=== PATIENT | male | born 1965 | race Caucasian/White ===

== ENCOUNTER 2018-01-02 22:45 | Observation (INO) ==
--- NOTE | 2018-01-02 23:02 | ED ---
HPI General Chief complaint: Chest Pain Stated complaint: chest pain/evac Time Seen by Provider: 01/02/18 22:55 Source: patient Limitations: no limitations History of Present Illness HPI narrative: The patient is a 52 year old male who presents to the [facility] emergency department with a history of onset of palpitations with a sensation that his heart was racing and approximately 30-45 minutes prior to arrival after he finished eating a meal. He denies having any chest pain or chest pressure associated with it. He reports that he does have a history of high blood pressure, however he has not been on any medications for the last several months. He denies ever having symptoms like this previously. The patient denies ever having any prior history of coronary artery disease, DVT, or PE. He denies having any lower extremity edema, calf pain, or erythema. The patient reports that he does smoke 1-1/2 packs of cigarettes per day. He is unsure of whether he has any history of diabetes or hyperlipidemia as he does not see a primary care physician. The patient reports that he does drink 10 beers daily. He denies any other illicit drug use other than occasionally he will get a pain medication off the street for various aches or pains. On review of systems otherwise, the patient denies having any known fevers, cough, congestion, neck pain, shortness of breath, abdominal pain, vomiting, diarrhea, urinary symptoms, or neurologic symptoms. Related Data Home Medications Medication Instructions Recorded Confirmed No Known Home Medications 01/02/18 01/02/18 Allergies Allergy/AdvReac Type Severity Reaction Status Date / Time No Known Allergies Allergy Uncoded 01/02/15 06:18 Review of Systems ROS: all other systems reviewed are negative PMFSH History History Provided By: Patient Medical History Medical History Hypertension (Acute) Gout (Acute) Surgical History Surgical History H/O knee surgery (Acute) Social History Social History Substance History: Active Abuse Second Hand Smoke Exposure: Yes Smoking Status: Current every day smoker Tobacco Type: Cigarettes Packs Per Day: 1.5 Cigarettes Per Day: 30.0 How Often Do You Have a Drink Containing Alcohol: 4 or more times a week Recent Travel in [facility] within the Last 8 Weeks: No Recent Out of Country Travel within the Last 8 Weeks: No Exam Const General: cooperative, no acute distress and well developed Nutritional Appearance: well nourished Orientation: alert, awake and oriented x3 HENMT Head: normocephalic and atraumatic Nose: no nasal discharge and no epistaxis Mouth: moist mucous membranes Throat: posterior oropharynx normal and uvula midline Eyes Sclera: normal sclerae Pupils: PERRL Neck Neck: no meningeal signs, trachea midline and no JVD Resp Effort & Inspection: no use of accessory muscles Auscultation: clear to auscultation bilaterally Cardio Rate: tachycardic (Sinus tachycardia in the low 100s. No pulse deficits to the extremities on simultaneous auscultation and palpation of his radial artery) Rhythm: regular rhythm Heart Sounds: no gallops, no murmurs and no rubs GI Inspection: non-distended Palpation: soft, no hepatosplenomegaly, no guarding, not rigid and nontender Auscultation: normal bowel sounds Back/Spine/Pelvis Back: no CVA tenderness Skin General: dry skin (warm) Neuro General: alert, awake, oriented x3 and other (Grossly nonfocal.) Speech: speech normal Motor: no movement abnormalities noted Extrem General: normal to inspection (2 +Pulses in all 4 extremities.), no calf tenderness, no clubbing, no cyanosis and no edema Psych Mood: congruent mood Affect: normal affect Judgment: judgment good Course Initial Documented Vital Signs Temperature 98.2 F 01/02/18 22:55 Pulse Rate 108 H 01/02/18 22:55 Respiratory Rate 18 01/02/18 22:55 Blood Pressure 167/98 H 01/02/18 22:55 Pulse Oximetry 97 01/02/18 22:55 Last Documented Vital Signs Temperature 97.9 F 01/03/18 04:00 Pulse Rate 80 01/03/18 04:00 Respiratory Rate 16 01/03/18 04:00 Blood Pressure 164/89 H 01/03/18 04:00 Pulse Oximetry 99 01/03/18 04:00 Medical Decision Making MDM Narrative Medical decision making narrative: During the course of the patient's emergency department visit, the patient's history, examination, and differential diagnosis were reviewed with the patient. The patient was placed on a cardiac monitor technician with oximetry and frequent blood pressure monitoring. The patient had IV access obtained and blood work sent for analysis. Diagnostic evaluation was started regarding the patient's palpitations and lightheaded sensation. The patient was initially provided normal saline of 500 mL bolus. The patient was brought in by ambulance services and was a 4 mg p.o. x1, sublingual nitroglycerin x1. The patient's diagnostic evaluation is remarkable for PT is 10, PTT 28.7, d- dimer is elevated at 0.66, a CTA to rule out PE has been ordered. The patient has a white count of 6.9, hemoglobin 14.8, platelets 332 with a normal differential. Chemistry is remarkable for potassium 3.3 which was supplemented orally, glucose 118, calcium 8.4, AST is 82, cardiac enzymes within normal limits, BNP 7, lipase 123, TSH elevated at 5.41, alcohol level 118, chest x-ray showed no acute cardiopulmonary disease. CTA to rule out pulmonary embolism showed no evidence of pulmonary embolism. The patient will be admitted to the chest pain center for continued evaluation and treatment. The patient's results were discussed with the patient, including the plan of care. I explained that further testing and/ or monitoring is indicated based on the patient's history, examination, and/ or laboratory findings. Therefore, I recommended admission for additional evaluation. The patient expressed understanding and was agreeable with this plan. The patient was admitted to the hospital in stable condition and sent to a bed under the care of the [facility]. Medical Screen Exam Complete: Yes Emergency Medical Condition: Yes Differential Diagnosis Differential Diagnosis: Endocrine disorder causing tachycardia, versus dehydration, versus paroxysmal atrial fibrillation, versus SVT, versus acute coronary syndrome Medical Records Medical records reviewed: Yes I reviewed the patient's medical records. Lab Data Lab results reviewed: Yes I reviewed the patient's lab results. Result diagrams: 01/02/18 23:00 01/02/18 23:00 Lab Results 01/02/18 01/02/18 01/02/18 Range/Units 23:00 23:00 23:00 WBC 6.9 (4.0-11.0) th/mm3 RBC 4.56 (4.50-5.90) mil/mm3 Hgb 14.8 (13.0-17.0) gm/dL Hct 41.0 (39.0-51.0) % MCV 89.9 (80.0-100.0) fL MCH 32.5 (27.0-34.0) pg MCHC 36.2 H (32.0-36.0) % RDW 13.9 (11.6-17.2) % Plt Count 332 (150-450) th/mm3 MPV 6.8 L (7.0-11.0) fL Prelim Diff (Auto) Slide review pending Neut % (Auto) 47.4 (16.0-70.0) % Lymph % (Auto) 42.2 (9.0-44.0) % Webster % (Auto) 5.9 (0.0-8.0) % Eos % (Auto) 3.3 (0.0-4.0) % Baso % (Auto) 1.2 (0.0-2.0) % Neut # (Auto) 3.3 (1.8-7.7) th/mm3 Lymph # (Auto) 2.9 (1.0-4.8) th/mm3 Webster # (Auto) 0.4 (0.0-0.9) th/mm3 Eos # (Auto) 0.2 (0.0-0.4) th/mm3 Baso # (Auto) 0.1 (0.0-0.2) th/mm3 WBC Differential . Diff Scan Auto diff confirmed Differential Comment . Platelet Estimate Normal (Normal) Platelet Morphology Normal (Normal) Stomatocytes 1+ H (None) PT 10.0 (9.8-11.6) sec INR 1.0 Ratio APTT 28.7 (23.4-31.7) sec D-Dimer Quant (PE/DVT) 0.66 H (0.00-0.50) mg/L FEU Sodium 136 (136-145) meq/L Potassium 3.3 L (3.5-5.1) meq/L Chloride 100 (98-107) meq/L Carbon Dioxide 24.4 (21.0-32.0) meq/L Anion Gap 12 (5-15) meq/L BUN 9 (7-18) mg/dL Creatinine 0.85 (0.60-1.30) mg/dL Estimated GFR Greater than 89 (>89) mL/min Random Glucose 118 H (74-106) mg/dL Calcium 8.4 L (8.5-10.1) mg/dL Magnesium 2.0 (1.5-2.5) mg/dL Total Bilirubin 0.3 (0.2-1.0) mg/dL AST 82 H (15-37) U/L ALT 58 (12-78) U/L Alkaline Phosphatase 81 (45-117) U/L Total Creatine Kinase 191 (39-308) U/L CK-MB (CK-2) 2.9 (0.5-3.6) ng/mL Troponin I Less than 0.02 L (0.02-0.05) ng/mL B-Natriuretic Peptide (0-100) pg/mL Total Protein 7.6 (6.4-8.2) g/dL Albumin 4.0 (3.4-5.0) g/dL Lipase 123 (73-393) U/L TSH 5.410 H (0.358-3.740) uIU/mL Serum Alcohol 118 H (0-5) mg/dL 01/02/18 01/03/18 Range/Units 23:00 02:00 WBC (4.0-11.0) th/mm3 RBC (4.50-5.90) mil/mm3 Hgb (13.0-17.0) gm/dL Hct (39.0-51.0) % MCV (80.0-100.0) fL MCH (27.0-34.0) pg MCHC (32.0-36.0) % RDW (11.6-17.2) % Plt Count (150-450) th/mm3 MPV (7.0-11.0) fL Prelim Diff (Auto) Neut % (Auto) (16.0-70.0) % Lymph % (Auto) (9.0-44.0) % Webster % (Auto) (0.0-8.0) % Eos % (Auto) (0.0-4.0) % Baso % (Auto) (0.0-2.0) % Neut # (Auto) (1.8-7.7) th/mm3 Lymph # (Auto) (1.0-4.8) th/mm3 Webster # (Auto) (0.0-0.9) th/mm3 Eos # (Auto) (0.0-0.4) th/mm3 Baso # (Auto) (0.0-0.2) th/mm3 WBC Differential Diff Scan Differential Comment Platelet Estimate (Normal) Platelet Morphology (Normal) Stomatocytes (None) PT (9.8-11.6) sec INR Ratio APTT (23.4-31.7) sec D-Dimer Quant (PE/DVT) (0.00-0.50) mg/L FEU Sodium (136-145) meq/L Potassium (3.5-5.1) meq/L Chloride (98-107) meq/L Carbon Dioxide (21.0-32.0) meq/L Anion Gap (5-15) meq/L BUN (7-18) mg/dL Creatinine (0.60-1.30) mg/dL Estimated GFR (>89) mL/min Random Glucose (74-106) mg/dL Calcium (8.5-10.1) mg/dL Magnesium (1.5-2.5) mg/dL Total Bilirubin (0.2-1.0) mg/dL AST (15-37) U/L ALT (12-78) U/L Alkaline Phosphatase (45-117) U/L Total Creatine Kinase 178 (39-308) U/L CK-MB (CK-2) 2.3 (0.5-3.6) ng/mL Troponin I Less than 0.02 L (0.02-0.05) ng/mL B-Natriuretic Peptide 7 (0-100) pg/mL Total Protein (6.4-8.2) g/dL Albumin (3.4-5.0) g/dL Lipase (73-393) U/L TSH (0.358-3.740) uIU/mL Serum Alcohol (0-5) mg/dL Imaging Data Radiologist's impression: Chest X-Ray 01/02/18 22:56 CONCLUSION: No acute cardiopulmonary disease identified. Chest CTA 01/03/18 01:35 CONCLUSION: No evidence of pulmonary embolus. ECG Data Attestation: I personally reviewed and interpreted this ECG as follows: Interpretation: The patient had an EKG done on arrival. The patient's EKG reveals a sinus tachycardia with a short PA interval heart rate of 111, QRS duration 114 ms, QTC 418 ms. An incomplete right bundle branch block is noted. Nonspecific T wave abnormalities are noted. Discharge Plan Discharge Disposition Patient Disposition: 30 Still Patient Discharge Details Diagnosis: Chest pain, rule out acute myocardial infarction, Palpitations Physicians Team ED Provider: Dasha Lagos Primary Care Provider: Primary Care Marjorie Otero Attending Provider: Jeyson,Sheila A Discharge Interventions Interventions: ED Discharge Assessment Last Done: 01/03/18 03:10 Status ED Status: Left Department Discharge Information Discharge Date/Time: 01/03/18 03:34
[2018-01-02 23:20] LABS: Baso # (Auto) 0.1 th/mm3 (0.0-0.2); Baso % (Auto) 1.2 % (0.0-2.0); Eos # (Auto) 0.2 th/mm3 (0.0-0.4); Eos % (Auto) 3.3 % (0.0-4.0); Hemoglobin 14.8 gm/dL (13.0-17.0); Lymph # (Auto) 2.9 th/mm3 (1.0-4.8); Lymph % (Auto) 42.2 % (9.0-44.0); Mean Corpuscular Hemoglobin 32.5 pg (27.0-34.0); Mean Corpuscular Volume 89.9 fL (80.0-100.0); Mean Platelet Volume 6.8 fL (7.0-11.0); Mono # (Auto) 0.4 th/mm3 (0.0-0.9); Mono % (Auto) 5.9 % (0.0-8.0); Neut # (Auto) 3.3 th/mm3 (1.8-7.7); Neut % (Auto) 47.4 % (16.0-70.0); Platelet Count 332 th/mm3 (150-450); Red Blood Count 4.56 mil/mm3 (4.50-5.90); Red Cell Distribution Width 13.9 % (11.6-17.2); White Blood Count 6.9 th/mm3 (4.0-11.0)
[2018-01-02 23:21] LABS: Mean Corpuscular HGB Conc 36.2 % (32.0-36.0)
[2018-01-02 23:33] LABS: Anion Gap 12 meq/L (5-15); Aspartate Aminotransferase 82 U/L (15-37); Blood Urea Nitrogen 9 mg/dL (7-18); Calcium 8.4 mg/dL (8.5-10.1); Carbon Dioxide 24.4 meq/L (21.0-32.0); Chloride 100 meq/L (98-107); Glomerular Filtration Rate Greater Than 89 mL/min (>89); Glucose,Random 118 mg/dL (74-106); Lipase 123 U/L (73-393); Potassium 3.3 meq/L (3.5-5.1); Sodium 136 meq/L (136-145)
--- NOTE | 2018-01-02 23:33 | XR ---
EXAM DATE: 01/02/2018 11:10 PM EST AGE/SEX: 52 years / Male INDICATIONS: Chest pain. CLINICAL DATA: This is the patient's initial encounter. Patient reports that signs and symptoms have been present for 1 day and indicates a pain score of 0/10. MEDICAL/SURGICAL HISTORY: None. None. COMPARISON: No prior exams available for comparison. FINDINGS: Single AP view of the chest. The lungs are clear. Cardiomediastinal silhouette within nor mal limits. No evidence of pleural effusion or pneumothorax. CONCLUSION: No acute cardiopulmonary disease identified. Electronically signed by: Derek Zuniga MD 01/02/2018 11:32 PM EST
[2018-01-02 23:34] LABS: Alanine Aminotransferase 58 U/L (12-78)
[2018-01-02 23:36] LABS: Activated Partial Thrombo Time 28.7 sec (23.4-31.7)
[2018-01-02 23:42] LABS: Alkaline Phosphatase 81 U/L (45-117); Creatine Kinase 191 U/L (39-308); Total Protein 7.6 g/dL (6.4-8.2)
[2018-01-02 23:43] LABS: D-Dimer 0.66 mg/L FEU (0.00-0.50)
[2018-01-02 23:52] LABS: Alcohol 118 mg/dL (0-5)
[2018-01-03 00:05] LABS: Creatine Kinase MB 2.9 ng/mL (0.5-3.6)
[2018-01-03 00:27] LABS: Platelet Estimate Normal (Normal); Platelet Morphology Normal (Normal)
[2018-01-03 00:28] LABS: Stomatocytes 1+
[2018-01-03 02:24] LABS: Creatine Kinase 178 U/L (39-308)
[2018-01-03 02:36] LABS: Creatine Kinase MB 2.3 ng/mL (0.5-3.6)
[2018-01-03] MEDS ORDERED: Potassium Chloride 25 MEQ Effervescent Tablet PO ONE (02:51)
--- NOTE | 2018-01-03 02:59 | CT ---
EXAM DATE: 01/03/2018 2:43 AM EST AGE/SEX: 52 years / Male INDICATIONS: Tachycardia, elevated d dimer. CLINICAL DATA: This is the patient's initial encounter. Patient reports that signs and symptoms have been present for 1 day and indicates a pain score of 0/10. MEDICAL/SURGICAL HISTORY: Hypertension. Gout None. RADIATION DOSE: 9.59 CTDI (mGy) COMPARISON: No prior exams available for comparison. TECHNIQUE: Volumetric scanning was performed using a multi-row detector CT scanner during bolus infu gely of 73ml ml Omnipaque 350 (iohexol) nonionic water-soluble contrast as a single exam dose. The d valeria was post processed with a variety of visualization algorithms including full volume maximum inten sity projection and sliding thin slab reformation. Using automated exposure control and adjustment o f the mA and/or kV according to patient size, radiation dose was kept as low as reasonably achievable to obtain optimal diagnostic quality images. DICOM format image data is available electronically fo r review and comparison. FINDINGS: Pulmonary Arteries: No filling defects in the pulmonary arteries to suggest pulmonary was. Lung: Mild centrilobular emphysema. Lungs otherwise clear. Effusion: None. Mediastinum: Coronary artery calcification. Aortic diameter within normal limits. Other: The axilla is unremarkable. CONCLUSION: No evidence of pulmonary embolus. Electronically signed by: Derek Zuniga MD 01/03/2018 2:58 AM EST
[2018-01-03] MEDS: Sod Chloride 0.9% Inj 1,000 ML IV.CONT SCH ×2 (04:00→14:29)
--- NOTE | 2018-01-03 07:56 | P.HPCA ---
History of Present Illness Primary Care Physician: No Primary Care Physician Chief Complaint: Palpations, dizziness History of Present Illness: 52 year old male with history of hypertension not currently on medications, current smoker, who drinks 10-12 beers daily presented to emergency room for further evaluation of palpitations. Onset last evening. Characterize heart "racing." Associated symptoms included dizziness, states "I thought I was going to pass out." Denied any chest pain or pressure. No nausea, vomiting, shortness of breath, or diaphoresis. No precipitating or relieving factors. Duration approximately 30 minutes. Second episode occurred last evening while watching TV around 1 a.m., reports heart began racing again and felt dizzy. Duration "a few minutes." monitoring and evaluation advisor revealed 30 seconds run VTACH, Dr. Benítez was notified in stock mixer. No recent illness, fever, or injury. Denies similar sensation in the past. Does not follow with a primary care provider. Past cardiac testing None Social history Endorses history of hypertension, currently not on medication. Does not follow with a PCP, cholesterol levels unknown. No known diabetes. Current 1.5 pack day smoker. Endorses drinking 10-12 beers daily. No recreational drug use. Endorses an active lifestyle. 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 Family history Noncontributory for early onset cardiovascular disease. - Diagnosis (1) Palpitations (2) Tobacco use (3) Alcohol abuse (4) Hypokalemia (5) Hypertension Review of Systems All other systems reviewed negative except as stated in [facility] - History History Provided By: Patient - Medical History Medical History: Medical History (Last Reviewed 01/03/18 @ 08:59 by SHEYLA Barajas) Hypertension Gout - Surgical History Surgical History: Surgical History (Last Reviewed 01/03/18 @ 08:59 by SHEYLA Barajas) H/O knee surgery - Tobacco History Second Hand Smoke Exposure: Yes Tobacco Use In Past 30 Days: Yes Smoking Status: Current every day smoker Tobacco Type: Cigarettes Packs Per Day: 1.5 Cigarettes Per Day: 30.0 - Alcohol History How Often Do You Have a Drink Containing Alcohol: 4 or more times a week (10-12 beers daily) - Substance Use History Substance History: Active Abuse - Travel History Recent Travel in the [facility] Within the Last 8 Weeks: No Recent Travel Out of the Country Within the Last 8 Weeks: No - Immunization History Tetanus Immunization: Unsure Medications and Allergies Active Medications: Active Medications Sodium Chloride (Ns Inj) 1,000 mls @ 100 mls/hr IV.CONT .Q10H JULIA Last Admin: 01/03/18 04:00 Dose: 100 mls/hr Sodium Chloride (Ns Flush) 2 ml IV.FLUSH UNSCH PRN PRN Reason: FLUSH AFTER USING IV ACCESS Sodium Chloride (Ns Flush) 2 ml IV.FLUSH BID JULIA Sodium Chloride (Ns Flush) 2 ml IV.FLUSH PRN PRN PRN Reason: FLUSH AFTER USING IV ACCESS Allergies Allergy/AdvReac Type Severity Reaction Status Date / Time No Known Allergies Allergy Uncoded 01/02/15 06:18 Home Medications Medication Instructions Recorded Confirmed Type No Known Home Medications 01/02/18 01/02/18 History Exam Vital signs: Vital Signs 01/02/18 22:55 01/02/18 22:59 01/03/18 01:47 Temperature 98.2 F Pulse Rate 108 H 88 Respiratory Rate 18 18 Blood Pressure 167/98 H 168/80 H Pulse Oximetry 97 98 98 01/03/18 02:44 01/03/18 04:00 01/03/18 07:19 Temperature 97.9 F Pulse Rate 89 80 Respiratory Rate 16 16 Blood Pressure 162/85 H 164/89 H Pulse Oximetry 97 99 94 L Intake & Output 01/02/18 01/03/18 01/03/18 18:59 06:59 18:59 Output Total 700 / 700 Balance -700 / -700 Weight 77.111 kg Output: Urine 700 / 700 Other: # Voids 1 1 Weight On Admission 77.111 kg Narrative: GENERAL: Alert WN, WD, NAD, pleasant, male HEAD: NC, AT EYES: Sclera clear, conjunctiva without injection CV: RRR, without murmur, rub, gallop, no JVD, S1-S2. RESP: Scattered rhonchi, not cleared with coughing. no crackles or wheeze. symmetrical chest rise, nonlabored, able to speak in full sentences ABD: Soft, NT, ND, no masses, positive bowel tones EXT: Pulses +2x4, no dependent edema MS: Normal tone x4 extremities, nontender, no obvious deformities, full range of motion NEURO: CN II through CN XII grossly intact, motor strength 5/5 PSYCH: A+O x3, pleasant affect, appropriate speech, mood, insight and judgment SKIN: Normal turgor, normal texture, no lesions, no rashes, multiple tattoos Results 01/02/18 23:00 01/03/18 06:20 Cardiac Enzymes 01/02/18 01/02/18 01/03/18 Range/Units 23:00 23:00 02:00 AST 82 H (15-37) U/L CK-MB (CK-2) 2.9 2.3 (0.5-3.6) ng/mL Troponin I Less than 0.02 L Less than 0.02 L (0.02-0.05) ng/mL B-Natriuretic Peptide 7 (0-100) pg/mL 01/03/18 Range/Units 06:20 AST (15-37) U/L CK-MB (CK-2) (0.5-3.6) ng/mL Troponin I Cancelled (0.02-0.05) ng/mL B-Natriuretic Peptide (0-100) pg/mL Coagulation 01/02/18 01/02/18 Range/Units 23:00 23:00 PT 10.0 (9.8-11.6) sec APTT 28.7 (23.4-31.7) sec B-Natriuretic Peptide 7 (0-100) pg/mL CBC 01/02/18 Range/Units 23:00 WBC 6.9 (4.0-11.0) th/mm3 RBC 4.56 (4.50-5.90) mil/mm3 Hgb 14.8 (13.0-17.0) gm/dL Hct 41.0 (39.0-51.0) % Plt Count 332 (150-450) th/mm3 Neut # (Auto) 3.3 (1.8-7.7) th/mm3 Lymph # (Auto) 2.9 (1.0-4.8) th/mm3 Saunders # (Auto) 0.4 (0.0-0.9) th/mm3 Eos # (Auto) 0.2 (0.0-0.4) th/mm3 Baso # (Auto) 0.1 (0.0-0.2) th/mm3 Comprehensive Metabolic Panel 01/02/18 Range/Units 23:00 Sodium 136 (136-145) meq/L Potassium 3.3 L (3.5-5.1) meq/L Chloride 100 (98-107) meq/L Carbon Dioxide 24.4 (21.0-32.0) meq/L BUN 9 (7-18) mg/dL Creatinine 0.85 (0.60-1.30) mg/dL Calcium 8.4 L (8.5-10.1) mg/dL AST 82 H (15-37) U/L ALT 58 (12-78) U/L Alkaline Phosphatase 81 (45-117) U/L Total Protein 7.6 (6.4-8.2) g/dL Albumin 4.0 (3.4-5.0) g/dL Intake and Output 01/02/18 01/03/18 01/03/18 22:59 06:59 14:59 Output Total 700 / 700 Balance -700 / -700 Output: Urine 700 / 700 Other: # Voids 1 1 Weight 83 kg 77.111 kg Weight On Admission 77.111 kg - Imaging and Cardiology Imaging: Impressions Chest X-Ray 01/02/18 22:56 CONCLUSION: No acute cardiopulmonary disease identified. Chest CTA 01/03/18 01:35 CONCLUSION: No evidence of pulmonary embolus. EKG interpretations - EKG EKG results cardiology: sinus rhythm (Normal sinus rhythm, normal axis, nonspecific T wave changes, incomplete right bundle branch block) Caprini VTE Risk Assessment Caprini VTE Risk Assessment: No/Low Risk (score <= 1) Caprini Risk Assessment Model: Point Value = 1 Point Value = 2 Point Value = 3 Point Value = 5 Age 41-60 Minor surgery BMI > 25 kg/m2 Swollen legs Varicose veins or History of unexplained or recurrent spontaneous Oral contraceptives or hormone replacement Sepsis (< 1 month) Serious lung disease, including pneumonia (< 1 month) Abnormal pulmonary function Acute myocardial infarction Congestive heart failure (< 1 month) History of inflammatory bowel disease Medical patient at bed rest Age 61-74 Arthroscopic surgery Major open surgery (> 45 min) Laparoscopic surgery (> 45 min) Malignancy Confined to bed (> 72 hours) Immobilizing plaster cast Central venous access Age >= 75 History of VTE Family history of VTE Factor V Leiden Prothrombin [id number] Lupus anticoagulant Anticardiolipin antibodies Elevated serum homocysteine Heparin-induced thrombocytopenia Other congenital or acquired thrombophilia Stroke (< 1 month) Elective arthroplasty Hip, pelvis, or leg fracture Acute spinal cord injury (< 1 month) Prophylaxis Regimen: Total Risk Factor Score Risk Level Prophylaxis Regimen 0-1 Low Early ambulation 2 Moderate Order ONE of the following: *Sequential Compression Device (SCD) *Heparin 5000 units SQ BID 3-4 Higher Order ONE of the following medications: *Heparin 5000 units SQ TID *Enoxaparin/Lovenox 40 mg SQ daily (WT < 150 kg, CrCl > 30 mL/min) *Enoxaparin/Lovenox 30 mg SQ daily (WT < 150 kg, CrCl > 10-29 mL/min) *Enoxaparin/Lovenox 30 mg SQ BID (WT < 150 kg, CrCl > 30 mL/min) AND/OR *Sequential Compression Device (SCD) 5 or more Highest Order ONE of the following medications: *Heparin 5000 units SQ TID (Preferred with Epidurals) *Enoxaparin/Lovenox 40 mg SQ daily (WT < 150 kg, CrCl > 30 mL/min) *Enoxaparin/Lovenox 30 mg SQ daily (WT < 150 kg, CrCl > 10-29 mL/min) *Enoxaparin/Lovenox 30 mg SQ BID (WT < 150 kg, CrCl > 30 mL/min) AND *Sequential Compression Device (SCD) Assessment and Plan - Assessment (1) Palpitations Code(s): R00.2 - Palpitations Status: Acute Plan: Admitted chest pain center. ACS ruled out with 3-4 EKGs and cardiac enzymes. Seen and evaluated by Dr. Sheila Benítez. Telemetry reviewed, 30 second VTACH documented. Patient reports being awake during event. Dr. Benítez discussed in length recommendation of cardiac catheterization. Time for questions provided. Patient apprehensive regarding cardiac catheterization. Dr Benítez informed him of risk of due to type of arrhythmia he has. Verbalized understanding and request time to think about consenting to cardiac catheterization. Aspirin 325 mg po daily, Coreg 6.25 mg BID. Plans to call supervisor fabrication developmental writing instructor if patient becomes agreeable for possible cardiac catheterization. [id number] agrees to proceed with cardiac catheterization. Call placed to Dr. Mckenna's office to discuss with supervisor fabrication developmental writing instructor. Discussed with RN. (2) Tobacco use Code(s): Z72.0 - Tobacco use Status: Chronic Plan: Strongly encouraged and stressed the importance of tobacco cessation. Instructed to quit smoking. Tobacco Free [place] Program information will be provided in discharge. (3) Alcohol abuse Code(s): F10.10 - Alcohol abuse, uncomplicated Status: Chronic Plan: Strongly encouraged and stressed the importance of stopping alcohol consumption. Made aware of potentially toxic adverse effects from high alcohol intake. (4) Hypokalemia Code(s): E87.6 - Hypokalemia Status: Acute Plan: Replacement given in ER. Repeat cmp pending. (5) Hypertension Code(s): I10 - Essential (primary) hypertension Status: Chronic Plan: Continue to monitor. Coreg 6.25 mg. Encouraged establishing with a primary care provider upon discharge. Education provided on importance of tight blood pressure control. H&P: Quality - VTE Deep Vein Thrombosis/Pulmonary Embolism Present on Admission: No (5) Hypertension Qualifiers: Hypertension type: unspecified Qualified Code(s): I10 - Essential (primary) hypertension
[2018-01-03 08:10] LABS: Alanine Aminotransferase 58 U/L (12-78); Albumin 3.6 g/dL (3.4-5.0); Anion Gap 9 meq/L (5-15); Aspartate Aminotransferase 88 U/L (15-37); Blood Urea Nitrogen 9 mg/dL (7-18); Calcium 8.1 mg/dL (8.5-10.1); Carbon Dioxide 24.8 meq/L (21.0-32.0); Chloride 105 meq/L (98-107); Glomerular Filtration Rate Greater Than 89 mL/min (>89); Glucose,Random 105 mg/dL (74-106); Phosphorus 3.5 mg/dL (2.5-4.9); Potassium 3.8 meq/L (3.5-5.1); Sodium 139 meq/L (136-145)
[2018-01-03 08:14] LABS: Alkaline Phosphatase 85 U/L (45-117); Creatine Kinase 138 U/L (39-308); Total Protein 6.9 g/dL (6.4-8.2)
[2018-01-03] MEDS: Aspirin 325 MG Tablet PO SCH (08:34)
[2018-01-03] MEDS ORDERED: Carvedilol 6.25 MG Tablet PO SCH (09:00)
[2018-01-03] MEDS ORDERED: Iohexol 350 MG/ML 100 ML Vial (for Cath Lab) IVCONTRAST ONE (14:19)
[2018-01-03] MEDS ORDERED: fentaNYL Citrate Inj 100 MCG/2 ML Ampul ONE (15:19)
[2018-01-03] MEDS ORDERED: Heparin/NS PF Inj 1,000 ML ONE (15:19)
[2018-01-03] MEDS ORDERED: Lidocaine PF 1% Inj 30 ML Vial ONE (15:33)
[2018-01-03] MEDS ORDERED: Tirofiban Inj 12,500 MCG/250 ML PLAST..BAG ONE (16:15)
[2018-01-03] MEDS ORDERED: Misc Info for Pharmacy OTHER STA (16:29)
[2018-01-03] MEDS ORDERED: TIROFIBAN BOLUS IV.SIG ONE (16:29)
--- NOTE | 2018-01-03 16:29 | CATHPROC ---
OnShift HIS Report Study Information Study Number Admission Scheduled Start Study Start [id number] Jan 03 2018 1:37AM 01/03/2018 Jan 03 2018 3:20PM [place] [facility] Cardiac Catheterization Admit Source Facility Department Emergency department [facility] - Lead Mechanical Engineer Physician and Clinical Staff Initial Kemal De Jesus Tail Board Worker Anum De Souza,MARLENE Recorder Scarlett Edwards,RT(R) (BS) Scrub Vik Adams,RT(R) Procedures Performed Procedure Location (Site) Vessel Name Coronary Angiograms LCA Left Coronary Coronary Angiograms RCA Right Coronary L Heart Cath LV Gram-hand inj. LV LV Ventricle PTCA ADD ON'S Stent OM1 Prox CIRC Wire insertion Fem Art (right) Femoral Art Equipment Time School Manager Description Size Mfg Part Number Used/Scraped TRANSDUCER, TRNOW! InnovationsAVE [id number] 15:22 [employer] * Used W/STOCKCOCK *[id number] 16:06 [place] WIRE, CHOICE PT 182CM 182CM Used *[id number] [id number] *[id number] 538-421 *[id number] *[id number] [phone] *[id number] 15:22 [employer] BLANKET,WARM AIR CCL * Used *[id number] 15:22 [employer] PACK, CCL CUSTOM * Used *[id number] 15:22 [employer] PACER PEN, SKIN DUAL W/ RULER * Used *[id number] 16:08 [employer] STENT, 3.0 9 INTEGRITY 3.0 9 Used *[id number] 16:06 [employer] MEDICAL 30 JONI INDEFLATOR Used *[id number] 16:06 [employer] MEDICAL SHEATH, FR6.5 PRELUDE 11CM FR 6.5 038ACT Used *[id number] 15:22 [employer] MEDICAL WIRE, 3MMJ .035 180CM 180CM Used *[id number] 15:22 NAMIC MANIFOLD, 4 PORT * Used *[id number] 15:22 [employer] OMNIPAQUE, 350 MG, 150ML 150ML [id number] Used [id number] 15:22 [employer]UM[employer] MEDICAL SHEATH, FR4 TERUMO (10CM) FR 4 Used *[id number] 15:38 [employer] MEDICAL SHEATH, FR4 TERUMO (10CM) FR 4 Used *[id number] Equipment Model, Serial, Lot Number and Expiration Data Description Model Number Serial Number Lot Number Expiration Date STENT, 3.0 9 INTEGRITY [id number] 07-13-2019 WIRE, CHOICE PT 182CM [id number] 08-23-2019 History: Current Medications Medication Dosage/Unit Route Frequency Last Date/Time Taken ASA History: Allergies Allergy Reaction No Known Allergies History: Risk Factors Family History of Hypertension Dyslipidemia Previous ND Previous Heart Failure Premature CAD No No No No No Prior Valve Prior PCI Prior CABG Surgery No No No Cerebrovascular Peripheral Artery Chronic Lung On Dialysis Diabetes Disease Disease Disease No No No No No History: Other Current Smoker Method Packs a Day Years Used Pack Years Yes Cigarettes 2 30 60 Labs Hgb (g/dl) Hct (%) WBC (l/cumm) Platelets (thousands) 11.60-17.00 35.00-51.00 4.00-11.00 150.00-450.00 14.8 41 6.9 332 Glucose (mg/dl) BUN (mg/dl) Creatinine (mg/dl) BUN:Creatinine (1:x) 74.00-106.00 7.00-18.00 0.50-1.30 10.00-20.00 105 9 0.7 12.9 Na (meq/l) K (meq/l) 136.00-145.00 3.50-5.10 139 3.8 INR (PTT:PT) 0.90-1.10 1 Troponin I (ng/ml) CPK (u/l) CPK-MB (ng/ML) 0.02-0.05 26.00-308.00 0.50-3.60 0.02 178 2.3 Medication Medication Total Dose (Bolus/Oral) Medication Total Dosage/Unit 1% XYLOCAINE 20 mL AGGRASTAT BOLUS 38.6 mL FENTANYL 50 mcg HEPARIN 5400 units PLAVIX 600 mg VERSED 2 mg Medications (Bolus/Oral) Medication Time Given Dosage/Unit Administered By Reason VERSED 01/03/2018 3:56:01 PM 1 mg Anum De Souza 1 mg VERSED given in lab by Anum De Souza, RN via Peripheral IV. 1% XYLOCAINE 01/03/2018 3:56:13 PM 20 mL Kemal Mckenna 20 mL 1% XYLOCAINE given in lab by Kemal Mckenna in Right Groin via Subcutaneous. FENTANYL 01/03/2018 3:57:05 PM 25 mcg Anum De Souza 25 mcg FENTANYL given in lab by Anum De Souza RN via Peripheral IV. HEPARIN 01/03/2018 4:03:20 PM 5400 units Anum De Souza 5400 units HEPARIN given in lab by Anum De Souza RN via Peripheral IV. VERSED 01/03/2018 4:04:29 PM 1 mg Anum De Souza 1 mg VERSED given in lab by Anum De Souza RN via Peripheral IV. FENTANYL 01/03/2018 4:06:32 PM 25 mcg Anum De Souza 25 mcg FENTANYL given in lab by Anum De Souza RN via Peripheral IV. PLAVIX 01/03/2018 4:19:17 PM 600 mg Anum De Souza 600 mg PLAVIX given in lab by Anum De Souza RN via Oral. AGGRASTAT BOLUS 01/03/2018 4:20:34 PM 38.6 mL Anum De Souza 38.6 mL AGGRASTAT BOLUS given in lab by Anum De Souza RN via Peripheral IV. Medication (Drip) Medication Time Given Dosage/Unit Concentration/Unit Diluent (ml) Solution AGGRASTAT DRIP 01/03/2018 4:22:12 PM 0.15 mcg/kg/min 12.5 mg 250 NaCl .9 0.15 mcg/kg/min AGGRASTAT DRIP given in lab by Anum De Souza RN via Peripheral IV. Pump/Drip Flow = 13.9 ml/hr using NaCl .9 with a concentration of 12.5 mg in 250 ml. IV Solutions 01/03/2018 3:27:55 PM 0 mL (IV) 1000 NaCl .9 Patient arrived on IV Solutions via Peripheral IV. Pump/Drip Flow = 30 ml/hr using NaCl .9. Initial Case Assessment Cardiovascular HR Rhythm NIBP Chest Pain 78 reg 183/117 0 Edema Present Skin color Skin None Normal Warm Dry Circulatory - Right Pulses Dorsalis Pedis Femoral 2 3 Scale (0,1,2,3,4,d) Circulatory - Left Pulses Dorsalis Pedis Femoral 2 3 Scale (0,1,2,3,4,d) Circulatory - Lower Extremities Color Lower Right Color Lower Left Normal Normal Neurological State Oriented to time-place- Alert Moves all extremities person Respiration - General Respiration Rate SpO2 (%) (B/min) 12 98 Chronological Log Time Study Chronological Log 15:24:54 Patient arrived via Bed. 15:24:58 Patient Name, D.O.B, / Armband Verified By R.N. 15:24:59 Consent signed by the physician and the patient and verified by the Lead Mechanical Engineer staff. 15:25:01 Pre-op and post- op instructions given; patient acknowledges understanding of instructions. 15:27:44 Presedation assessment performed by Lead Mechanical Engineer RN. 15:27:48 Patient has been NPO for More than 6Hrs. 15:27:48 Skin Breakdown- none noted or reported 15::50 Patient Warmer Placed on the Table. 15::51 La Prominences Protected 15::54 A # 20 IV was noted in the Antecubital (left). Grade = 0 15:27:55 Patient arrived on IV Solutions via Peripheral IV. Pump/Drip Flow = 30 ml/hr using NaCl .9. 15:27:56 History and physical on the chart or being dictated. Assessment: Initial Case, HR=78 BPM, Rhythm=reg, HWGJ=525/117 mmhg, Chest Pain=0, Edema=None, Color=Normal, Skin = Warm, Dry Right Pulses: Eze Ped=2, Femoral=3 Left Pulses: Eze Ped=2, Femoral=3 15:27:57 Lower Right Extremities: Color=Normal Lower Left Extremities: Color=Normal Neurological: State=Alert, Ox3, DUVAL Respiration: Resp=12 B/min, SpO2=98 % Vitals capture started with the following parameters, Patient=Adult, Interval=5 min, Initial Pr nurfez=058 mmHg, 15:28:08 Deflation Rate=5 mmHg, Cuff placed on Left Arm 15:29:29 HR=77 bpm, LXAW=099/117 mmhg, SpO2=97.0 %, Resp=5 B/min, Pain=0, Cesar=10, Johnston=2 15:32:08 Reference ECG taken 15:33:55 HR=78 bpm, UERJ=642/119 mmhg, SpO2=99.0 %, Resp=11 B/min, Pain=0, Cesar=10, Johnston=2 15:34:19 Bilateral groins prepped with 2% chlorhexidine, and draped after a 3 minute waiting time. 15:39:00 HR=76 bpm, WTED=051/157 mmhg, SpO2=97.0 %, Resp=13 B/min, Pain=0, Cesar=10, Johnston=2 15:39:10 MD paged 15:39:29 MD responded 15:43:35 MD arrived. 15:43:55 HR=74 bpm, KNNK=121/111 mmhg, SpO2=96.0 %, Resp=9 B/min, Pain=0, Cesar=10, Johnston=2 15:48:27 Pressure channel 1 zeroed. 15:48:58 HR=72 bpm, DAUF=237/108 mmhg, SpO2=96.0 %, Resp=16 B/min, Pain=0, Cesar=10, Johnston=2 15:53:59 HR=71 bpm, BZJC=421/110 mmhg, SpO2=96.0 %, Resp=15 B/min, Pain=0, Cesar=10, Johnston=2 15:56:01 1 mg VERSED given in lab by Anum De Souza, MARLENE via Peripheral IV. Time Out. Correct patient, correct procedure, correct physician, labs, allergies, and equipment verified with slab stripper 15:56:06 team present. Fire risk assesment completed (see hard stop sheet for coding). Time Out Conc urred by MD and individual staff in procedure. 15:56:10 Case Start 15:56:13 20 mL 1% XYLOCAINE given in lab by Kemal Mckenna in Right Groin via Subcutaneous. 15:57:05 25 mcg FENTANYL given in lab by Anum De Souza, RN via Peripheral IV. 15:57:25 Access site was Right Femoral Artery. 15:57:32 A SHEATH, FR4 TERUMO (10CM) FR 4 was advanced into the Fem Art (right) using the Percutaneo us technique. A JR 4.0 INFINITI CATHETER FR 4 was advanced over a wire. OMNIPAQUE, 350 MG, 150ML 150ML was us ed for 15:58:11 injections. 15:59:00 HR=96 bpm, KZCL=963/96 mmhg, SpO2=94.0 %, Resp=13 B/min, Pain=0, Cesar=10, Johnston=2 Recorded Pressure: LV, HR=76, Condition=Condition 1 15:59:38 (Left Ventricle) LV 167/3/8 15:59:56 The LV was manually injected with 8 cc's and visualized. OMNIPAQUE, 350 MG, 150ML 150ML use d. Recorded Pressure: LV, Ao, HR=85, Condition=Condition 1 16:00:01 (Left Ventricle) LV 163/-1/4, (Aorta) Ao 167/91/123 16:00:45 The RCA was injected and visualized at various angles. OMNIPAQUE, 350 MG, 150ML 150ML used . Recorded Pressure: Ao, HR=84, Condition=Condition 1 16:00:59 (Aorta) Ao 172/95/128 16:01:37 Catheter was removed A JL 4.0 INFINITI CATHETER FR 4 was advanced over a wire. OMNIPAQUE, 350 MG, 150ML 150ML was us ed for 16:01:45 injections. 16:03:10 The LCA was injected and visualized at various angles. OMNIPAQUE, 350 MG, 150ML 150ML used . 16:03:20 5400 units HEPARIN given in lab by Anum De Souza RN via Peripheral IV. 16:03:55 HR=79 bpm, OOLM=257/100 mmhg, SpO2=95.0 %, Resp=16 B/min, Pain=0, Cesar=10, Johnston=2 16:04:29 1 mg VERSED given in lab by Anum De Souza, MARLENE via Peripheral IV. A SHEATH, FR6.5 PRELUDE 11CM FR 6.5 was exchanged in the Fem Art (right). This was necessary in order to 16:05:35 accomodate a larger catheter. 16:05:56 OMNIPAQUE, 350 MG, 150ML 150ML and 30 JONI INDEFLATOR added. 16:06:32 25 mcg FENTANYL given in lab by Anum De Souza, MARLENE via Peripheral IV. A XB 4.0 GUIDE CATHETER FR 6 was advanced over a wire. OMNIPAQUE, 350 MG, 150ML 150ML was used for 16:07:42 injections. 16:08:43 A WIRE, CHOICE PT 182CM 182CM was inserted via Fem Art (right). 16:08:56 HR=83 bpm, FNRI=036/101 mmhg, SpO2=95.0 %, Resp=15 B/min, Pain=0, Cesar=10, Johnston=2 An STENT, 3.0 9 INTEGRITY 3.0 9 Bare Metal Stent was inserted through a XB 4.0 GUIDE CATHETER F R 6 over a 16:12:25 WIRE, CHOICE PT 182CM 182CM. A STENT, 3.0 9 INTEGRITY 3.0 9 was deployed using a 30 JONI INDEFLATOR at 10 atmospheres for 16 seconds in the 16:13:26 OM1 Prox. 16:13:53 HR=79 bpm, WIQZ=244/96 mmhg, SpO2=95.0 %, Resp=13 B/min, Pain=0, Cesar=10, Johnston=2 16:14:26 Delivery device removed 16:14:32 Wire removed 16:14:39 Catheter was removed 16:15:06 Case End (Physician broke scrub) 16:16:27 Activated Clotting Time Drawn 16:17:10 Catheter(s) removed without difficulty 16:17:13 In the Fem Art (right) the SHEATH, FR6.5 PRELUDE 11CM FR 6.[address] by Vik Milner RT(R). 16:17:58 Sterile dressing applied to site 16:18:01 No case complications noted. 16:18:04 Bedside Report will be given. 16:18:05 Implantable Device card placed in patient's chart. 16:18:08 A Left Heart Cath was performed. 16:18:54 HR=70 bpm, SRBM=985/97 mmhg, SpO2=96.0 %, Resp=14 B/min, Pain=0, Cesar=10, Johnston=2 16:19:17 600 mg PLAVIX given in lab by Anum De Souza, MARLENE via Oral. 16:20:34 38.6 mL AGGRASTAT BOLUS given in lab by Anum De Souza, RN via Peripheral IV. 16:21:39 ACT (Normal Range 90-180) = 245 0.15 mcg/kg/min AGGRASTAT DRIP given in lab by Anmu De Souza, RN via Peripheral IV. Pump/Drip Flow = 13.9 ml/hr 16:22:12 using NaCl .9 with a concentration of 12.5 mg in 250 ml. 16:25:07 Vitals capture stopped. 16:26:29 Patient moved to stretcher End Study - Contrast Media Used In Study Contrast Total Opened (mL) Total Used (mL) Total Wasted (mL) Omnipaque 350 80 80 0 End Study - Maximum Contrast Load Max Contrast Load (mL) 551.9 End Study - Radiation Exposure Fluoro Time (minutes) 4.8 End Study - Patient Disposition Complications Transferred To Interventional Outcome No Lead Mechanical Engineer Holding successful
[2018-01-03] MEDS ORDERED: Tirofiban Inj 12,500 MCG/250 ML PLAST..BAG IV.CONT SCH (17:00)
--- NOTE | 2018-01-03 17:34 | MB ---
cc: Kemal Mckenna MD DATE: 01/03/2018 HISTORY OF PRESENT ILLNESS: Shan is a very pleasant 52-year-old gentleman with history of tobacco use. He had an episode of near syncope and palpitations. He is reported to have had a 30-second run of ventricular tachycardia in the ER. He was seen by Dr. Benítez in the chest pain center. He ruled out for MT. Dr. Benítez recommended heart catheterization. The patient otherwise denies any chest pain, fevers, cough, dyspnea, PND, or orthopnea. PAST MEDICAL HISTORY: Per of history of present illness. He also has a history of hypertension, gout, knee surgery. ALLERGIES: NONE. SOCIAL HISTORY: He is a heavy drinker and he also smokes. MEDICATIONS IN THE HOSPITAL: Aspirin 325 daily. PHYSICAL EXAMINATION: VITAL SIGNS: Blood pressure 180/95, pulse 69, respiratory rate 18, temperature 97.4, sats 96% on room air. GENERAL: He is alert and oriented x 3, in no acute distress. NECK: Supple. No JVD or bruit. CARDIOVASCULAR: S1, S2. No murmurs, rubs or gallops. LUNGS: Clear to auscultation bilaterally. ABDOMEN: Soft, nontender, nondistended, positive bowel sounds. EXTREMITIES: No extremity edema. DIAGNOSTIC DATA: Chest x-ray: No acute cardiopulmonary disease identified. EKG: Normal sinus rhythm at 93 beats per minute. Chest CTA: No evidence of pulmonary embolus. Second EKG: Sinus tachycardia at 111 beats per minute, 0.[address] segment depression in lead V4, V5, 0.25 in V6. Third EKG: Normal sinus rhythm at 79 beats per minute, incomplete right bundle branch block, normal intervals. LABORATORY DATA: White count 6.9, hemoglobin 14.8, hematocrit 41.0, platelet count 332. INR is 1.0. Sodium 139, potassium 3.0, chloride 105, bicarbonate 24.8, BUN 9, creatinine 0.71. Troponin is less than 0.02 x 3. BNP is 7. TSH is 5.410. Initial potassium is 3.3. Toxicology is positive for serum alcohol level of 118. FINAL DIAGNOSES: 1. Ventricular tachycardia. 2. Near syncope. 3. Tobacco abuse. 4. Hypokalemia. 5. Alcohol intoxication. DISCUSSION: At this point in time, the patient has received aspirin. I agree with Dr. Benítez that the left heart catheterization is indicated, given the high risk presentation and multiple cardiac risk factors. Plan is for left heart catheterization today. MD VERNA Akhtar/benita , 04:29 PM , 04:36 PM
--- NOTE | 2018-01-03 17:46 | MR ---
cc: Kemal Mckenna MD DATE: 01/03/2018 PROCEDURE PERFORMED: Left heart catheterization, left ventriculography, coronary angiography, direct percutaneous coronary intervention with bare metal stent of the third obtuse marginal vessel. INDICATIONS FOR PROCEDURE: Nonsustained ventricular tachycardia, near syncope, coronary artery disease, tobacco use, multiple cardiac risk factors. The patient was brought to the cardiac catheterization laboratory, prepped and draped in the usual sterile fashion. 10 mL of 1% lidocaine was used for local anesthetic in right common femoral artery. A 4-Citizen [place] sheath was placed in the right common femoral artery, and 4-Citizen [place] JR4 and JL4 catheters were used to perform left and right coronary angiography and left ventriculography. FINDINGS: LV pressure is 160/3-5, EF 60%. Right coronary artery is dominant, has a long 50-60% stenosis in the proximal mid segment. The reference vessel diameter proximally is 3.5; reference vessel in the mid to distal segment is 2.75. The left main coronary artery is a large reference vessel diameter of 6 mm. LAD is transapical, has fibrocalcification proximally, it is transapical, it was tortuous in the distal segment with a proximal 20% stenosis. First, second, third and fourth diagonal arteries are 0.5 mm vessels with no significant obstructive disease. The left circumflex vessel has no significant disease angiographically. First and second marginal vessels are small 0.5 mm vessels. Third obtuse marginal vessel was a 3.0 mm reference vessel diameter with a proximal 95% stenosis with a 90-degree bend at the stenosis. Fourth obtuse marginal vessel is a medium to large size vessel 2.75 reference vessel diameter, tortuous distally. A 6-Citizen [place] sheath was exchanged for this 4-[place]izen [place] sheath, 7 units per kilo of heparin was given. ACT 245, 6-Citizen [place] XB 4.0 guide 0.014 ChoICE PT floppy wire was placed into the distal third obtuse marginal vessel. The vessel was directly stented with a 309 Integrity stent with one inflation 10 atmospheres for 20 seconds. Stenosis went from 95% to 0% with JESSENIA 3 flow. The patient had no symptoms during stent deployment. CONCLUSION: 1. Near syncope, 30 seconds of ventricular tachycardia, possible culprit 95% stenosis in the proximal third obtuse marginal vessel as detailed above. 2. Otherwise, mild to moderate 3-vessel coronary artery disease in a right dominant system as detailed above. 3. Normal left ventricular systolic function with ejection fraction 60%. 4. Successful direct PCI bare metal stent of the proximal third obtuse marginal vessel from 95% to 0% with JESSENIA 3 flow. RECOMMENDATIONS: Recommend Plavix 600 mg p.o. load and 75 mg a day for 12-15 months. Aspirin 162 mg daily. I have strongly advised the patient to stop smoking. We will treat lipids B guidelines and also add beta walker and JAQUI inhibitors as clinically and hemodynamically tolerated. MD VERNA Akhtar/benita , 04:22 PM , 04:32 PM
--- NOTE | 2018-01-03 18:03 | P.PNIM ---
Subjective Interval history: No current complaints of chest pain. Physical Exam Vital signs: Vital Signs 01/02/18 22:55 01/02/18 22:59 01/03/18 01:47 Temperature 98.2 F Pulse Rate 108 H 88 Respiratory Rate 18 18 Blood Pressure 167/98 H 168/80 H Pulse Oximetry 97 98 98 01/03/18 02:44 01/03/18 04:00 01/03/18 07:19 Temperature 97.9 F Pulse Rate 89 80 Respiratory Rate 16 16 Blood Pressure 162/85 H 164/89 H Pulse Oximetry 97 99 94 L 01/03/18 08:00 01/03/18 11:24 01/03/18 16:36 Temperature 97.8 F 97.4 F L Pulse Rate 75 69 Respiratory Rate 16 18 Blood Pressure 183/104 H 180/95 H Pulse Oximetry 96 99 Intake & Output 01/02/18 01/03/18 01/03/18 18:59 06:59 18:59 Intake Total 1000 / 1000 Output Total 1300 / 1300 Balance -300 / -300 Weight 77.111 kg Intake: IV 1000 / 1000 NS Inj 1,000 ML @ 100 mls/hr IV 1000 / 1000 .CONT .Q10H JULIA Rx#:[id number] Output: Urine 1300 / 1300 Other: # Voids 1 1 Weight On Admission 77.111 kg Narrative: A and O x 3 EOMI, atraumatic S1 S2 CTA b/l soft, nontender, nondistended, normal bowel sounds. No edema of the exts No neurological deficits. Results - Labs CBC & Chem 7: 01/02/18 23:00 01/03/18 06:20 Laboratory Results - last 24 hr 01/02/18 01/02/18 01/02/18 23:00 23:00 23:00 WBC 6.9 RBC 4.56 Hgb 14.8 Hct 41.0 MCV 89.9 MCH 32.5 MCHC 36.2 H RDW 13.9 Plt Count 332 MPV 6.8 L Prelim Diff (Auto) Slide review pending Neut % (Auto) 47.4 Lymph % (Auto) 42.2 [place] % (Auto) 5.9 Eos % (Auto) 3.3 Baso % (Auto) 1.2 Neut # (Auto) 3.3 Lymph # (Auto) 2.9 [place] # (Auto) 0.4 Eos # (Auto) 0.2 Baso # (Auto) 0.1 WBC Differential . Diff Scan Auto diff confirmed Differential Comment . Platelet Estimate Normal Platelet Morphology Normal Stomatocytes 1+ H PT 10.0 INR 1.0 APTT 28.7 D-Dimer Quant (PE/DVT) 0.66 H Sodium 136 Potassium 3.3 L Chloride 100 Carbon Dioxide 24.4 Anion Gap 12 BUN 9 Creatinine 0.85 Estimated GFR Greater than 89 Random Glucose 118 H Calcium 8.4 L Phosphorus Magnesium 2.0 Total Bilirubin 0.3 AST 82 H ALT 58 Alkaline Phosphatase 81 Total Creatine Kinase 191 CK-MB (CK-2) 2.9 Troponin I Less than 0.02 L B-Natriuretic Peptide Total Protein 7.6 Albumin 4.0 Lipase 123 TSH 5.410 H Serum Alcohol 118 H 01/02/18 01/03/18 01/03/18 23:00 02:00 06:20 WBC RBC Hgb Hct MCV MCH MCHC RDW Plt Count MPV Prelim Diff (Auto) Neut % (Auto) Lymph % (Auto) [place] % (Auto) Eos % (Auto) Baso % (Auto) Neut # (Auto) Lymph # (Auto) [place] # (Auto) Eos # (Auto) Baso # (Auto) WBC Differential Diff Scan Differential Comment Platelet Estimate Platelet Morphology Stomatocytes PT INR APTT D-Dimer Quant (PE/DVT) Sodium Potassium Chloride Carbon Dioxide Anion Gap BUN Creatinine Estimated GFR Random Glucose Calcium Phosphorus Magnesium Total Bilirubin AST ALT Alkaline Phosphatase Total Creatine Kinase 178 Cancelled CK-MB (CK-2) 2.3 Troponin I Less than 0.02 L Cancelled B-Natriuretic Peptide 7 Total Protein Albumin Lipase TSH Serum Alcohol 01/03/18 06:20 WBC RBC Hgb Hct MCV MCH MCHC RDW Plt Count MPV Prelim Diff (Auto) Neut % (Auto) Lymph % (Auto) [place] % (Auto) Eos % (Auto) Baso % (Auto) Neut # (Auto) Lymph # (Auto) [place] # (Auto) Eos # (Auto) Baso # (Auto) WBC Differential Diff Scan Differential Comment Platelet Estimate Platelet Morphology Stomatocytes PT INR APTT D-Dimer Quant (PE/DVT) Sodium 139 Potassium 3.8 Chloride 105 Carbon Dioxide 24.8 Anion Gap 9 BUN 9 Creatinine 0.71 Estimated GFR Greater than 89 Random Glucose 105 Calcium 8.1 L Phosphorus 3.5 Magnesium 2.0 Total Bilirubin 0.3 AST 88 H ALT 58 Alkaline Phosphatase 85 Total Creatine Kinase 138 CK-MB (CK-2) Troponin I Less than 0.02 L B-Natriuretic Peptide Total Protein 6.9 D Albumin 3.6 Lipase TSH Serum Alcohol - Imaging Impressions Chest X-Ray 01/02/18 22:56 CONCLUSION: No acute cardiopulmonary disease identified. Chest CTA 01/03/18 01:35 CONCLUSION: No evidence of pulmonary embolus. Assessment and Plan - Plan Patient is a 52 y/o Male with HTN. Patient also has an extensive tobacco smoking and etoh history who presented to [facility] with complaints of palpitations dizziness and chest pain. The patient was found to have a long 30 second run of VTACH and was subsequently admitted. 1. VTACH Patient presented with the symptoms mentioned above. EKG showed NSR no acute st or t wave changes. VTACH noted in the ED. Cardiology was consulted and patient underwent Cardiac catheterization with showed 50% occlusion of the RCA and 95% occlusion of the OM which was stented. Patient is currently on Asa, plavix, statin, Coreg, Ibrahima inhibitor. Continue current medications We will follow up with Cardiology for their recommendations. 2. Hypertension Continue BB, continue ibrahima inhibitor. His meds will be adjusted as needed. 3. Tobacco/ETOH abuse Patient advised to quit smoking tobacco and to quit drinking.
[2018-01-03] MEDS ORDERED: amLODIPine 5 MG Tablet PO ONE (18:11)
--- NOTE | 2018-01-03 18:11 | ECG ---
Date Performed: 01/03/2018 Time Performed: 05:57:25 PTAGE: 52 years EKG: Sinus rhythm INCOMPLETE RIGHT BUNDLE BRANCH BLOCK NONSPECIFIC T-WAVE ABNORMALITY BORDERLINE ECG Since PREVIOUS TRACING , no significant change noted PREVIOUS TRACIN01/03/2018 02.41 DOCTOR: Sheila Benítez Interpretating Date/Time 01/03/2018 18:10:06
[2018-01-03] MEDS ORDERED: fentaNYL Citrate Inj 100 MCG/2 ML Ampul IV.PUSH ONE (18:45)
[2018-01-03] MEDS ORDERED: oxyCODONE/Acetaminophen 10/325 Tablet PO ONE (22:01)
[2018-01-04] MEDS: Sod Chloride 0.9% Inj 1,000 ML IV.CONT SCH ×3 (01:05→17:34)
[2018-01-04 03:43] LABS: Baso # (Auto) 0.1 th/mm3 (0.0-0.2); Baso % (Auto) 1.4 % (0.0-2.0); Eos # (Auto) 0.3 th/mm3 (0.0-0.4); Eos % (Auto) 4.4 % (0.0-4.0); Hematocrit 37.4 % (39.0-51.0); Hemoglobin 13.3 gm/dL (13.0-17.0); Lymph # (Auto) 1.7 th/mm3 (1.0-4.8); Lymph % (Auto) 22.4 % (9.0-44.0); Mean Corpuscular HGB Conc 35.6 % (32.0-36.0); Mean Corpuscular Hemoglobin 32.1 pg (27.0-34.0); Mean Corpuscular Volume 90.1 fL (80.0-100.0); Mean Platelet Volume 7.2 fL (7.0-11.0); Mono # (Auto) 0.6 th/mm3 (0.0-0.9); Mono % (Auto) 7.7 % (0.0-8.0); Neut % (Auto) 64.1 % (16.0-70.0); Platelet Count 292 th/mm3 (150-450); Red Blood Count 4.15 mil/mm3 (4.50-5.90); Red Cell Distribution Width 13.8 % (11.6-17.2); White Blood Count 7.7 th/mm3 (4.0-11.0)
[2018-01-04 04:09] LABS: Anion Gap 8 meq/L (5-15); Blood Urea Nitrogen 9 mg/dL (7-18); Carbon Dioxide 27.4 meq/L (21.0-32.0); Chloride 105 meq/L (98-107); Cholesterol 178 mg/dL (120-200); Glomerular Filtration Rate Greater Than 89 mL/min (>89); Glucose,Random 89 mg/dL (74-106); Potassium 3.5 meq/L (3.5-5.1); Sodium 140 meq/L (136-145); Triglycerides 273 mg/dL (42-150)
[2018-01-04 04:11] LABS: Chol/HDL Ratio 3.37 Ratio; HDL Cholesterol 52.8 mg/dL (40.0-60.0); LDL Cholesterol,Calculated 71 mg/dL (0-99)
[2018-01-04 04:14] LABS: Creatine Kinase 83 U/L (39-308)
[2018-01-04] MEDS: Aspirin 325 MG Tablet PO SCH (08:00)
[2018-01-04] MEDS: Ramipril 2.5 MG Capsule PO SCH (08:00)
--- NOTE | 2018-01-04 08:03 | P.PN ---
Subjective Interval history: Follow-up for ventricular tachycardia status post cardiac catheterization with bare-metal stent placed. Patient is currently doing well. He denies any chest pain. He is ambulating well. He does complain of chronic back pain as well as chronic cough. He requests some pain medication. He apparently takes Percocet sometimes at home. Physical Exam Vital signs: Vital Signs 01/03/18 11:24 01/03/18 16:36 01/03/18 19:00 Temperature 97.4 F L Pulse Rate 69 97 H Respiratory Rate 18 Blood Pressure 180/95 H Pulse Oximetry 99 01/03/18 20:00 01/03/18 21:00 01/03/18 21:30 Temperature 98.0 F Pulse Rate 94 H 92 H Respiratory Rate 18 16 Blood Pressure 154/80 H Pulse Oximetry 95 01/03/18 22:00 01/03/18 23:00 01/04/18 00:00 Temperature 98.0 F Pulse Rate 88 69 66 Respiratory Rate 18 Blood Pressure 120/80 Pulse Oximetry 01/04/18 01:00 01/04/18 02:00 01/04/18 03:00 Temperature Pulse Rate 64 64 65 Respiratory Rate Blood Pressure Pulse Oximetry 01/04/18 03:51 01/04/18 04:00 01/04/18 05:00 Temperature 98.1 F Pulse Rate 81 82 46 L Respiratory Rate 18 Blood Pressure 140/86 Pulse Oximetry 01/04/18 07:00 Temperature Pulse Rate 92 H Respiratory Rate Blood Pressure Pulse Oximetry Intake & Output 01/03/18 01/04/18 01/04/18 18:59 06:59 18:59 Intake Total 1000 / 1000 1730 / 1730 Output Total 1300 / 1300 520 / 520 Balance -300 / -300 1210 / 1210 Weight 86.2 kg Intake: IV 1000 / 1000 1250 / 1250 Aggrastat Inj 12,500 mcg In 250 250 / 250 ml @ 0 mls/hr .ROUTE .STK-MED ONE Rx#:[id number] NS Inj 1,000 ML @ 100 mls/hr IV 1000 / 1000 1000 / 1000 .CONT .Q10H [facility] Rx#:[id number] Oral 480 / 480 Output: Urine 1300 / 1300 520 / 520 Other: # Voids 1 Date of Last Bowel Movement 01/03/18 # Bowel Movements 1 Narrative: GENERAL: Alert, oriented x3, NAD. SKIN: Warm and dry. HEAD: Normocephalic. EYES: No scleral icterus. No injection or drainage. NECK: Supple, trachea midline. No JVD or lymphadenopathy. CARDIOVASCULAR: Regular rate and rhythm without murmurs, gallops, or rubs. RESPIRATORY: Moderate air entry. Minor diffuse wheezing noted. GASTROINTESTINAL: Abdomen soft, non-tender, nondistended. MUSCULOSKELETAL: No cyanosis, or edema. BACK: Nontender without obvious deformity. No CVA tenderness. Results - Labs CBC & Chem 7: 01/04/18 03:24 01/04/18 03:24 Laboratory Results - last 24 hr 01/03/18 01/04/18 01/04/18 06:20 03:24 03:24 WBC 7.7 RBC 4.15 L Hgb 13.3 Hct 37.4 L MCV 90.1 MCH 32.1 MCHC 35.6 RDW 13.8 Plt Count 292 MPV 7.2 Neut % (Auto) 64.1 Lymph % (Auto) 22.4 [place] % (Auto) 7.7 Eos % (Auto) 4.4 H Baso % (Auto) 1.4 Neut # (Auto) 5.0 Lymph # (Auto) 1.7 [place] # (Auto) 0.6 Eos # (Auto) 0.3 Baso # (Auto) 0.1 WBC Differential . Differential Comment Auto diff final Sodium 139 140 Potassium 3.8 3.5 Chloride 105 105 Carbon Dioxide 24.8 27.4 Anion Gap 9 8 BUN 9 9 Creatinine 0.71 0.77 Estimated GFR Greater than 89 Greater than 89 Random Glucose 105 89 Calcium 8.1 L 8.0 L Phosphorus 3.5 Magnesium 2.0 2.0 Total Bilirubin 0.3 AST 88 H ALT 58 Alkaline Phosphatase 85 Total Creatine Kinase 138 83 Troponin I Less than 0.02 L Total Protein 6.9 D Albumin 3.6 Triglycerides 273 H Cholesterol 178 LDL Cholesterol, Calc 71 HDL Cholesterol 52.8 Cholesterol/HDL Ratio 3.37 - Imaging Chest X-Ray 01/02/18 22:56 CONCLUSION: No acute cardiopulmonary disease identified. Chest CTA 01/03/18 01:35 CONCLUSION: No evidence of pulmonary embolus. - Procedures 01/03/2018 Cardiac catheterization 1. Near syncope, 30 seconds of ventricular tachycardia, possible culprit 95% stenosis in the proximal third obtuse marginal vessel as detailed above. 2. Otherwise, mild to moderate 3-vessel coronary artery disease in a right dominant system as detailed above. 3. Normal left ventricular systolic function with ejection fraction 60%. 4. Successful direct PCI bare metal stent of the proximal third obtuse marginal vessel from 95% to 0% with JESSENIA 3 flow. Assessment and Plan - Plan Mr. Pro is a pleasant 52-year-old male with a history of hypertension, tobacco use, alcohol use who was admitted to the hospital on 01/03 due to palpitation. Telemetry showed run of ventricular tachycardia. 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 Patient underwent cardiac catheterization on 01/03/2018 with a bare-metal stent placed to proximal third obtuse marginal vessel. Ventricular tachycardia Coronary artery disease Status post cardiac catheterization with bare-metal stent placed to proximal OM Continue aspirin 325 mg daily, carvedilol 3.125 mg p.o. twice daily, Plavix 75 mg p.o. daily daily Continue ramipril 2.5 mg p.o. daily. Currently on Aggrastat (Tirofiban) Tobacco use Alcohol use Chronic back pain We will provide as needed Percocet. No pain medication upon discharge Full code. Ambulation. Discharge plan: Patient can likely be discharged home pending cardiology clearance for discharge.
--- NOTE | 2018-01-04 10:09 | P.PNCA ---
Subjective Interval history: alert in nad, assymptomatic Medications and Allergies Active Medications: Active Medications Aspirin (Aspirin) 325 mg PO DAILY [facility] Last Admin: 01/04/18 08:00 Dose: 325 mg Carvedilol (Coreg) 3.125 mg PO BID [facility] Last Admin: 01/04/18 08:00 Dose: 3.125 mg Clopidogrel Bisulfate (Plavix) 75 mg PO DAILY [facility] Last Admin: 01/04/18 08:00 Dose: 75 mg Sodium Chloride (Ns Inj) 1,000 mls @ 100 mls/hr IV.CONT .Q10H [facility] Last Admin: 01/04/18 07:59 Dose: Not Given Tirofiban/Sodium Chloride (Aggrastat Inj) 12,500 mcg in 250 mls @ 0 mls/hr IV.CONT .Q0M [facility]; Protocol Last Admin: 01/04/18 03:57 Dose: 0.15 mcg/kg/min, 13.88 mls/hr Ondansetron HCl (Zofran Inj) 4 mg IV.PUSH Q6H PRN PRN Reason: NAUSEA Oxycodone/Acetaminophen (Percocet 5/325 Mg) 1 tab PO Q6H PRN PRN Reason: Pain 5-10 Last Admin: 01/04/18 10:03 Dose: 1 tab Ramipril (Altace) 2.5 mg PO DAILY [facility] Last Admin: 01/04/18 08:00 Dose: 2.5 mg Sodium Chloride (Ns Flush) 2 ml IV.FLUSH BID [facility] Last Admin: 01/04/18 08:00 Dose: 2 ml Sodium Chloride (Ns Flush) 2 ml IV.FLUSH PRN PRN PRN Reason: FLUSH AFTER USING IV ACCESS Allergies Allergy/AdvReac Type Severity Reaction Status Date / Time No Known Allergies Allergy Uncoded 01/02/15 06:18 Home Medications Medication Instructions Recorded Confirmed Type No Known Home Medications 01/02/18 01/02/18 History Physical Exam Vital signs: Vital Signs 01/03/18 11:24 01/03/18 16:36 01/03/18 19:00 Temperature 97.4 F L Pulse Rate 69 97 H Respiratory Rate 18 Blood Pressure 180/95 H Pulse Oximetry 99 01/03/18 20:00 01/03/18 21:00 01/03/18 21:30 Temperature 98.0 F Pulse Rate 94 H 92 H Respiratory Rate 18 16 Blood Pressure 154/80 H Pulse Oximetry 95 01/03/18 22:00 01/03/18 23:00 01/04/18 00:00 Temperature 98.0 F Pulse Rate 88 69 66 Respiratory Rate 18 Blood Pressure 120/80 Pulse Oximetry 01/04/18 01:00 01/04/18 02:00 01/04/18 03:00 Temperature Pulse Rate 64 64 65 Respiratory Rate Blood Pressure Pulse Oximetry 01/04/18 03:51 01/04/18 04:00 01/04/18 05:00 Temperature 98.1 F Pulse Rate 81 82 46 L Respiratory Rate 18 Blood Pressure 140/86 Pulse Oximetry 01/04/18 07:00 01/04/18 08:00 01/04/18 09:00 Temperature 98.5 F Pulse Rate 92 H 93 H 77 Respiratory Rate 16 Blood Pressure 151/89 H Pulse Oximetry 100 Intake & Output 01/03/18 01/04/18 01/04/18 18:59 06:59 18:59 Intake Total 1000 / 1000 1730 / 1730 Output Total 1300 / 1300 520 / 520 Balance -300 / -300 1210 / 1210 Weight 86.2 kg Intake: IV 1000 / 1000 1250 / 1250 Aggrastat Inj 12,500 mcg In 250 250 / 250 ml @ 0 mls/hr .ROUTE .STK-MED ONE Rx#:[id number] NS Inj 1,000 ML @ 100 mls/hr IV 1000 / 1000 1000 / 1000 .CONT .Q10H [facility] Rx#:[id number] Oral 480 / 480 Output: Urine 1300 / 1300 520 / 520 Other: # Voids 1 Date of Last Bowel Movement 01/03/18 # Bowel Movements 1 - Constitutional no acute distress - Routine HEENT Exam Head: Present: normocephalic - Routine Neck Exam Present: supple - Routine Respiratory Exam Present: CTA bilaterally - Routine Cardiovascular Exam Present: S1, S2 - Routine Abdominal Exam Present: soft - Routine Extremities Exam Comments: no bette Results 01/04/18 03:24 01/04/18 03:24 Cardiac Enzymes 01/02/18 01/02/18 01/03/18 Range/Units 23:00 23:00 02:00 AST 82 H (15-37) U/L CK-MB (CK-2) 2.9 2.3 (0.5-3.6) ng/mL Troponin I Less than 0.02 L Less than 0.02 L (0.02-0.05) ng/mL B-Natriuretic Peptide 7 (0-100) pg/mL 01/03/18 01/03/18 Range/Units 06:20 06:20 AST 88 H (15-37) U/L CK-MB (CK-2) (0.5-3.6) ng/mL Troponin I Cancelled Less than 0.02 L (0.02-0.05) ng/mL B-Natriuretic Peptide (0-100) pg/mL Coagulation 01/02/18 01/02/18 Range/Units 23:00 23:00 PT 10.0 (9.8-11.6) sec APTT 28.7 (23.4-31.7) sec B-Natriuretic Peptide 7 (0-100) pg/mL Lipids 01/04/18 Range/Units 03:24 Triglycerides 273 H (42-150) mg/dL Cholesterol 178 (120-200) mg/dL HDL Cholesterol 52.8 (40.0-60.0) mg/dL Cholesterol/HDL Ratio 3.37 Ratio CBC 01/02/18 01/04/18 Range/Units 23:00 03:24 WBC 6.9 7.7 (4.0-11.0) th/mm3 RBC 4.56 4.15 L (4.50-5.90) mil/mm3 Hgb 14.8 13.3 (13.0-17.0) gm/dL Hct 41.0 37.4 L (39.0-51.0) % Plt Count 332 292 (150-450) th/mm3 Neut # (Auto) 3.3 5.0 (1.8-7.7) th/mm3 Lymph # (Auto) 2.9 1.7 (1.0-4.8) th/mm3 [place] # (Auto) 0.4 0.6 (0.0-0.9) th/mm3 Eos # (Auto) 0.2 0.3 (0.0-0.4) th/mm3 Baso # (Auto) 0.1 0.1 (0.0-0.2) th/mm3 Comprehensive Metabolic Panel 01/02/18 01/03/18 01/04/18 Range/Units 23:00 06:20 03:24 Sodium 136 139 140 (136-145) meq/L Potassium 3.3 L 3.8 3.5 (3.5-5.1) meq/L Chloride 100 105 105 (98-107) meq/L Carbon Dioxide 24.4 24.8 27.4 (21.0-32.0) meq/L BUN 9 9 9 (7-18) mg/dL Creatinine 0.85 0.71 0.77 (0.60-1.30) mg/dL Calcium 8.4 L 8.1 L 8.0 L (8.5-10.1) mg/dL AST 82 H 88 H (15-37) U/L ALT 58 58 (12-78) U/L Alkaline Phosphatase 81 85 (45-117) U/L Total Protein 7.6 6.9 D (6.4-8.2) g/dL Albumin 4.0 3.6 (3.4-5.0) g/dL Intake and Output 01/03/18 01/04/18 01/04/18 22:59 06:59 14:59 Intake Total 1730 / 1730 Output Total 520 / 520 Balance 1210 / 1210 Intake: IV 1250 / 1250 Aggrastat Inj 12,500 mcg In 250 250 / 250 ml @ 0 mls/hr .ROUTE .STK-MED ONE Rx#:[id number] NS Inj 1,000 ML @ 100 mls/hr IV 1000 / 1000 .CONT .Q10H [facility] Rx#:[id number] Oral 480 / 480 Output: Urine 520 / 520 Other: Date of Last Bowel Movement 01/03/18 01/03/18 # Bowel Movements 1 Weight 86.2 kg - Imaging and Cardiology Imaging: Impressions Chest X-Ray 01/02/18 22:56 CONCLUSION: No acute cardiopulmonary disease identified. Chest CTA 01/03/18 01:35 CONCLUSION: No evidence of pulmonary embolus. Assessment and Plan - Assessment (1) CAD (coronary artery disease) Code(s): I25.10 - Atherosclerotic heart disease of [place] coronary artery without angina pectoris Status: Acute (2) Ventricular tachycardia Code(s): I47.2 - Ventricular tachycardia Status: Acute (3) Syncope Code(s): R55 - Syncope and collapse Status: Acute (4) Palpitations Code(s): R00.2 - Palpitations Status: Acute (5) Tobacco use Code(s): Z72.0 - Tobacco use Status: Chronic (6) Alcohol abuse Code(s): F10.10 - Alcohol abuse, uncomplicated Status: Chronic (7) Hypokalemia Code(s): E87.6 - Hypokalemia Status: Acute (8) Hypertension Code(s): I10 - Essential (primary) hypertension Status: Chronic - Plan 1.) CAD - pod # 1 bns om, assymptomatic, continue aspirin, plavix, coreg, altace , statin held due to elevated lfts 2.) VT - no repeat events, consult Dr Salazar for further evaluation, continue telemetry (8) Hypertension Qualifiers: Hypertension type: unspecified Qualified Code(s): I10 - Essential (primary) hypertension
--- NOTE | 2018-01-04 13:39 | ECG ---
Date Performed: 01/03/2018 Time Performed: 02:41:38 PTAGE: 52 years EKG: Sinus rhythm POSSIBLE LEFT ATRIAL ENLARGEMENT POSSIBLE RIGHT VENTRICULAR CONDUCTION DELAY NONSPECIFIC T-WAVE ABNO RMALITY BORDERLINE ECG Compared to PREVIOUS TRACING ,STT wave changes have improved. DOCTOR: Kendrick Burns Interpretating Date/Time 01/08/2018 07:01:51
[2018-01-04] MEDS ORDERED: Haloperidol Inj 5 MG/ML Ampul IV.PUSH PRN (13:58)
[2018-01-04] MEDS ORDERED: LORazepam 1 MG Tablet PO PRN (13:58)
--- NOTE | 2018-01-04 13:58 | ECG ---
Date Performed: 01/02/2018 Time Performed: 22:53:19 PTAGE: 52 years EKG: SINUS TACHYCARDIA WITH SHORT IA INTERVAL POSSIBLE LEFT ATRIAL ENLARGEMENT INCOMPLETE RIGHT BUNDLE BRANCH BLOCK NONSPECIFIC T-WAVE ABNORMALITY ABNORMAL RHYTHM ECG Compared to PREVIOUS TRACING , these changes are new. DOCTOR: Kendrick Burns Interpretating Date/Time 01/04/2018 13:56:41
--- NOTE | 2018-01-04 15:36 | ECHRPT ---
Indication: CORONARY ATHEROSCLEROSIS CONCLUSIONS Normal left ventricular size. Wall thickness is normal. The left ventricular systolic function is normal with an estimated ejection fraction in the range of 55-60%. [id number] mitral valve regurgitation. There is trace to mild tricuspid valve regurgitation. The estimated pulmonary arterial pressure is 35.4 mmHg. BP: / HR: Rhythm: Sinus MEASUREMENTS (Male / Female) Normal Values Technical Quality:Fair 2D ECHO LV Diastolic Diameter PLAX 5.7 cm 4.2 - 5.9 / 3.9 - 5.3 cm LV Systolic Diameter PLAX 4.2 cm IVS Diastolic Thickness 0.9 cm 0.6 - 1.0 / 0.6 - 0.9 cm LVPW Diastolic Thickness 0.9 cm 0.6 - 1.0 / 0.6 - 0.9 cm LV Relative Wall Thickness 0.3 RV Internal Dim ED PLAX 2.5 cm LVOT Diameter 2.3 cm Aortic Root Diameter 3.5 cm LA Systolic Diameter LX 3.2 cm 3.0 - 4.0 / 2.7 - 3.8 cm M-MODE AV Cusp Separation MM 1.8 cm DOPPLER AV Peak Velocity 167.0 cm/s AV Peak Gradient 11.2 mmHg AV Mean Gradient 6.0 mmHg AV Velocity Time Integral 30.1 cm LVOT Peak Velocity 133.0 cm/s LVOT Peak Gradient 7.1 mmHg LVOT Velocity Time Integral 21.7 cm AV Area Cont Eq vti 3.0 cm AV Area Cont Eq pk 3.3 cm Mitral E Point Velocity 72.1 cm/s Mitral A Point Velocity 79.0 cm/s Mitral E to A Ratio 0.9 LV E' Lateral Velocity 10.0 cm/s Mitral E to LV E' Lateral Ratio 7.2 LV E' Septal Velocity 8.4 cm/s Mitral E to LV E' Septal Ratio 8.6 TR Peak Velocity 252.0 cm/s TR Peak Gradient 25.4 mmHg Right Atrial Pressure 10.0 mmHg Pulmonary Artery Systolic Pressu 35.4 mmHg Right Ventricular Systolic Press 35.4 mmHg PV Peak Velocity 75.9 cm/s PV Peak Gradient 2.3 mmHg FINDINGS LEFT VENTRICLE Normal left ventricular size. Wall thickness is normal. The left ventricular systolic function is normal with an estimated ejection fraction in the range of 55-60%. RIGHT VENTRICLE Normal right ventricular size and systolic function. LEFT ATRIUM The left atrial size is normal. RIGHT ATRIUM The right atrial size is normal. ATRIAL SEPTUM No atrial level shunt is demonstrated by color flow Doppler interrogation. AORTA The aortic root and proximal ascending aorta are normal in size on limited imaging. MITRAL VALVE [id number] mitral valve regurgitation. AORTIC VALVE Trileaflet aortic valve. No aortic valve stenosis or regurgitation. TRICUSPID VALVE There is trace to mild tricuspid valve regurgitation. The estimated pulmonary arterial pressure is 35.4 mmHg. PULMONARY VALVE No pulmonary valve regurgitation or stenosis. VESSELS The inferior vena cava is normal in size. PERICARDIUM No pericardial effusion. Fred Lagos MD (Electronically Signed) Final Date:04 January 2018 15:34
[2018-01-04] MEDS ORDERED: Temazepam 15 MG Capsule PO PRN (21:00)
--- NOTE | 2018-01-04 22:43 | ECG ---
Date Performed: 01/04/2018 Time Performed: 04:02:04 PTAGE: 52 years EKG: Sinus rhythm Anterior/lateral ST-T wave changes may be due to myocardial ischemia Abnormal ECG PREVIOUS TRACING : 01/03/2018 16.49 Compared to previous tracing, Anterior/lateral ST-T wave ch anges are new DOCTOR: Janes Torres Interpretating Date/Time 01/04/2018 22:41:46
[2018-01-05] MEDS: Sod Chloride 0.9% Inj 1,000 ML IV.CONT SCH ×2 (05:43→17:16)
--- NOTE | 2018-01-05 07:14 | ECG ---
Date Performed: 01/03/2018 Time Performed: 16:49:04 PTAGE: 52 years EKG: Sinus rhythm Prolonged QT interval Incomplete Right bundle branch block Abnormal ECG PREVIOUS TRACING : 01/03/2018 05.57 Since the previous tracing, no significant change noted DOCTOR: Janes Torres Interpretating Date/Time 01/05/2018 07:13:24
[2018-01-05] MEDS: Ramipril 2.5 MG Capsule PO SCH (08:33)
[2018-01-05] MEDS: Aspirin 325 MG Tablet PO SCH (08:34)
--- NOTE | 2018-01-05 11:37 | P.PN ---
Subjective Interval history: Follow-up for ventricular tachycardia status post cardiac catheterization with bare-metal stent placed. Patient is currently doing well. He is ambulating in the room. Denies any chest pain, shortness of breath, fever or chills. Physical Exam Vital signs: Vital Signs 01/04/18 12:00 01/04/18 13:00 01/04/18 14:00 Temperature 98.2 F Pulse Rate 77 72 62 Respiratory Rate 16 Blood Pressure 136/80 Pulse Oximetry 99 01/04/18 15:00 01/04/18 16:00 01/04/18 17:00 Temperature 98.6 F Pulse Rate 73 76 76 Respiratory Rate 16 Blood Pressure 143/92 H Pulse Oximetry 98 01/04/18 18:00 01/04/18 19:00 01/04/18 20:00 Temperature 98.3 F Pulse Rate 78 2 L 67 Respiratory Rate 20 Blood Pressure 156/90 H Pulse Oximetry 97 01/04/18 21:00 01/04/18 22:00 01/04/18 23:19 Temperature 97.5 F L Pulse Rate 64 64 61 Respiratory Rate 20 Blood Pressure 147/84 H Pulse Oximetry 98 01/04/18 23:22 01/05/18 01:00 01/05/18 02:00 Temperature Pulse Rate 61 62 60 Respiratory Rate Blood Pressure Pulse Oximetry 01/05/18 03:00 01/05/18 04:00 01/05/18 05:00 Temperature Pulse Rate 57 L 64 62 Respiratory Rate Blood Pressure Pulse Oximetry 01/05/18 06:00 01/05/18 07:00 01/05/18 07:59 Temperature Pulse Rate 65 76 Respiratory Rate Blood Pressure Pulse Oximetry 95 01/05/18 08:00 01/05/18 09:00 01/05/18 10:00 Temperature 98.7 F Pulse Rate 63 70 68 Respiratory Rate 18 Blood Pressure 143/85 H Pulse Oximetry 96 Intake & Output 01/04/18 01/05/18 01/05/18 18:59 06:59 18:59 Intake Total 1590 / 1590 1000 / 1000 Output Total 1500 / 1500 Balance 90 / 90 1000 / 1000 Weight 84 kg Intake: IV 150 / 150 0 / 0 NS Inj 1,000 ML @ 100 mls/hr IV 0 / 0 .CONT .Q10H [facility] Rx#:[id number] Aggrastat Inj 12,500 mcg In 250 150 / 150 ml @ Per Protocol IV.CONT .Q0M [facility] Rx#:[id number] Oral 1440 / 1440 1000 / 1000 Output: Urine 1500 / 1500 Other: # Voids 4 Date of Last Bowel Movement 01/04/18 # Bowel Movements 1 Narrative: GENERAL: Alert, oriented x3, NAD. SKIN: Warm and dry. HEAD: Normocephalic. EYES: No scleral icterus. No injection or drainage. NECK: Supple, trachea midline. No JVD or lymphadenopathy. CARDIOVASCULAR: Regular rate and rhythm without murmurs, gallops, or rubs. RESPIRATORY: Moderate air entry. Minor diffuse wheezing noted. GASTROINTESTINAL: Abdomen soft, non-tender, nondistended. MUSCULOSKELETAL: No cyanosis, or edema. BACK: Nontender without obvious deformity. No CVA tenderness. Results - Labs CBC & Chem 7: 01/04/18 03:24 01/04/18 03:24 - Procedures 01/03/2018 Cardiac catheterization 1. Near syncope, 30 seconds of ventricular tachycardia, possible culprit 95% stenosis in the proximal third obtuse marginal vessel as detailed above. 2. Otherwise, mild to moderate 3-vessel coronary artery disease in a right dominant system as detailed above. 3. Normal left ventricular systolic function with ejection fraction 60%. 4. Successful direct PCI bare metal stent of the proximal third obtuse marginal vessel from 95% to 0% with JESSENIA 3 flow. Assessment and Plan - Plan Mr. Pro is a pleasant 52-year-old male with a history of hypertension, tobacco use, alcohol use who was admitted to the hospital on 01/03 due to palpitation. Telemetry showed run of ventricular tachycardia. 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 Patient underwent cardiac catheterization on 01/03/2018 with a bare-metal stent placed to proximal third obtuse marginal vessel. Ventricular tachycardia Coronary artery disease Status post cardiac catheterization with bare-metal stent placed to proximal OM Continue aspirin 325 mg daily, carvedilol 3.125 mg p.o. twice daily, Plavix 75 mg p.o. daily daily Continue ramipril 2.5 mg p.o. daily. No further episodes of ventricular tachycardia. I discussed with Dr. Mckenna (cardiology). He recommends that we obtain a consultation of Dr. Salazar (electrophysiology) Dr. Salazar will not be available until 01/08/2018 Dr. Mckenna would prefer to have EP eval while patient is in-patient during this admission. Tobacco use Alcohol use Chronic back pain We will provide as needed Percocet. No pain medication upon discharge Full code. Ambulation. Discharge plan: Probable discharge on Monday01/08/2018.
--- NOTE | 2018-01-05 16:49 | P.PNCA ---
Subjective Interval history: assymptomatic in nad Medications and Allergies Active Medications: Active Medications Aspirin (Aspirin) 325 mg PO DAILY [facility] Last Admin: 01/05/18 08:34 Dose: 325 mg Carvedilol (Coreg) 3.125 mg PO BID [facility] [place] Last Admin: 01/05/18 08:33 Dose: 3.125 mg Clopidogrel Bisulfate (Plavix) 75 mg PO DAILY [facility] [place] Last Admin: 01/05/18 08:33 Dose: 75 mg Flumazenil (Romazecon Inj) 0.2 mg IV.PUSH Q1M PRN PRN Reason: OVERSEDATION Haloperidol Lactate (Haldol Inj) 1 mg IV.PUSH Q15M PRN PRN Reason: for severe agitation Sodium Chloride (Ns Inj) 1,000 mls @ 100 mls/hr IV.CONT .Q10H [facility] [place] Last Infusion: 01/05/18 05:43 Dose: Infused Tirofiban/Sodium Chloride (Aggrastat Inj) 12,500 mcg in 250 mls @ 0 mls/hr IV.CONT .Q0M [facility]; Protocol Last Infusion: 01/04/18 10:01 Dose: Infused Lorazepam (Ativan) 1 mg PO Q4H PRN PRN Reason: for CIWA 8-10 Lorazepam (Ativan) 2 mg PO Q2H PRN PRN Reason: for CIWA 11-14 Lorazepam (Ativan Inj) 2 mg IV.PUSH Q1H PRN PRN Reason: for CIWA 15-20 Lorazepam (Ativan Inj) 2 mg IV.PUSH Q15M PRN PRN Reason: for CIWA > 20 Lorazepam (Ativan Inj) 1 mg IV.PUSH Q4H PRN PRN Reason: for CIWA 8-10 Lorazepam (Ativan Inj) 2 mg IV.PUSH Q2H PRN PRN Reason: for CIWA 11-14 Ondansetron HCl (Zofran Inj) 4 mg IV.PUSH Q6H PRN PRN Reason: NAUSEA Oxycodone/Acetaminophen (Percocet 5/325 Mg) 1 tab PO Q6H PRN PRN Reason: Pain 5-10 Last Admin: 01/05/18 13:37 Dose: 1 tab Ramipril (Altace) 2.5 mg PO DAILY [facility] [place] Last Admin: 01/05/18 08:33 Dose: 2.5 mg Sodium Chloride (Ns Flush) 2 ml IV.FLUSH BID [facility] Last Admin: 01/05/18 08:34 Dose: 2 ml Sodium Chloride (Ns Flush) 2 ml IV.FLUSH PRN PRN PRN Reason: FLUSH AFTER USING IV ACCESS Temazepam (Restoril) 15 mg PO HS PRN PRN Reason: INSOMNIA Last Admin: 01/04/18 23:21 Dose: 15 mg Allergies Allergy/AdvReac Type Severity Reaction Status Date / Time No Known Allergies Allergy Uncoded 01/02/15 06:18 Home Medications Medication Instructions Recorded Confirmed Type No Known Home Medications 01/02/18 01/02/18 History Physical Exam Vital signs: Vital Signs 01/04/18 17:00 01/04/18 18:00 01/04/18 19:00 Temperature Pulse Rate 76 78 2 L Respiratory Rate Blood Pressure Pulse Oximetry 01/04/18 20:00 01/04/18 21:00 01/04/18 22:00 Temperature 98.3 F Pulse Rate 67 64 64 Respiratory Rate 20 Blood Pressure 156/90 H Pulse Oximetry 97 01/04/18 23:19 01/04/18 23:22 01/05/18 01:00 Temperature 97.5 F L Pulse Rate 61 61 62 Respiratory Rate 20 Blood Pressure 147/84 H Pulse Oximetry 98 01/05/18 02:00 01/05/18 03:00 01/05/18 04:00 Temperature Pulse Rate 60 57 L 64 Respiratory Rate Blood Pressure Pulse Oximetry 01/05/18 05:00 01/05/18 06:00 01/05/18 07:00 Temperature Pulse Rate 62 65 76 Respiratory Rate Blood Pressure Pulse Oximetry 01/05/18 07:59 01/05/18 08:00 01/05/18 09:00 Temperature 98.7 F Pulse Rate 63 70 Respiratory Rate 18 Blood Pressure 143/85 H Pulse Oximetry 95 96 01/05/18 10:00 01/05/18 11:00 01/05/18 12:00 Temperature 98.6 F Pulse Rate 68 68 77 Respiratory Rate 18 Blood Pressure 128/88 Pulse Oximetry 96 Intake & Output 01/04/18 01/05/18 01/05/18 18:59 06:59 18:59 Intake Total 1590 / 1590 1000 / 1000 Output Total 1500 / 1500 Balance 90 / 90 1000 / 1000 Weight 84 kg Intake: IV 150 / 150 0 / 0 NS Inj 1,000 ML @ 100 mls/hr IV 0 / 0 .CONT .Q10H [facility] Rx#:[id number] Aggrastat Inj 12,500 mcg In 250 150 / 150 ml @ Per Protocol IV.CONT .Q0M [facility] Rx#:[id number] Oral 1440 / 1440 1000 / 1000 Output: Urine 1500 / 1500 Other: # Voids 4 Date of Last Bowel Movement 01/04/18 01/05/18 # Bowel Movements 1 - Constitutional no acute distress - Routine HEENT Exam Head: Present: normocephalic - Routine Neck Exam Present: supple - Routine Respiratory Exam Present: CTA bilaterally - Routine Cardiovascular Exam Present: S1, S2 - Routine Abdominal Exam Present: soft Results 01/04/18 03:24 01/04/18 03:24 Lipids 01/04/18 Range/Units 03:24 Triglycerides 273 H (42-150) mg/dL Cholesterol 178 (120-200) mg/dL HDL Cholesterol 52.8 (40.0-60.0) mg/dL Cholesterol/HDL Ratio 3.37 Ratio CBC 01/04/18 Range/Units 03:24 WBC 7.7 (4.0-11.0) th/mm3 RBC 4.15 L (4.50-5.90) mil/mm3 Hgb 13.3 (13.0-17.0) gm/dL Hct 37.4 L (39.0-51.0) % Plt Count 292 (150-450) th/mm3 Neut # (Auto) 5.0 (1.8-7.7) th/mm3 Lymph # (Auto) 1.7 (1.0-4.8) th/mm3 [place] # (Auto) 0.6 (0.0-0.9) th/mm3 Eos # (Auto) 0.3 (0.0-0.4) th/mm3 Baso # (Auto) 0.1 (0.0-0.2) th/mm3 Comprehensive Metabolic Panel 01/04/18 Range/Units 03:24 Sodium 140 (136-145) meq/L Potassium 3.5 (3.5-5.1) meq/L Chloride 105 (98-107) meq/L Carbon Dioxide 27.4 (21.0-32.0) meq/L BUN 9 (7-18) mg/dL Creatinine 0.77 (0.60-1.30) mg/dL Calcium 8.0 L (8.5-10.1) mg/dL Intake and Output 01/05/18 01/05/18 01/05/18 06:59 14:59 22:59 Intake Total 1000 / 1000 Balance 1000 / 1000 Intake: IV 0 / 0 NS Inj 1,000 ML @ 100 mls/hr IV 0 / 0 .CONT .Q10H [facility] Rx#:[id number] Oral 1000 / 1000 Other: # Voids 4 Date of Last Bowel Movement 01/04/18 01/05/18 # Bowel Movements 1 Weight 84 kg Assessment and Plan - Assessment (1) CAD (coronary artery disease) Code(s): I25.10 - Atherosclerotic heart disease of [place] coronary artery without angina pectoris Status: Acute (2) Ventricular tachycardia Code(s): I47.2 - Ventricular tachycardia Status: Acute (3) Syncope Code(s): R55 - Syncope and collapse Status: Acute (4) Palpitations Code(s): R00.2 - Palpitations Status: Acute (5) Tobacco use Code(s): Z72.0 - Tobacco use Status: Chronic (6) Alcohol abuse Code(s): F10.10 - Alcohol abuse, uncomplicated Status: Chronic (7) Hypokalemia Code(s): E87.6 - Hypokalemia Status: Acute (8) Hypertension Code(s): I10 - Essential (primary) hypertension Status: Chronic - Plan 1.) CAD - pod # 2 bms om, assymptomatic, continue aspirin, plavix, coreg, altace , statin held due to elevated lfts 2.) VT - no repeat events, consult Dr Salazar for further evaluation, continue telemetry (8) Hypertension Qualifiers: Hypertension type: unspecified Qualified Code(s): I10 - Essential (primary) hypertension
[2018-01-06] MEDS: Sod Chloride 0.9% Inj 1,000 ML IV.CONT SCH ×3 (04:42→23:31)
[2018-01-06] MEDS: Ramipril 2.5 MG Capsule PO SCH (09:13)
[2018-01-06] MEDS: Aspirin 325 MG Tablet PO SCH (09:13)
--- NOTE | 2018-01-06 09:26 | P.PN ---
Subjective Interval history: Follow-up for ventricular tachycardia status post cardiac catheterization with bare-metal stent placed. Patient is currently doing well. Denies any chest pain, shortness of breath, fever or chills. No episodes of ventricular tachycardia overnight. Physical Exam Vital signs: Vital Signs 01/05/18 10:00 01/05/18 11:00 01/05/18 12:00 Temperature 98.6 F Pulse Rate 68 68 77 Respiratory Rate 18 Blood Pressure 128/88 Pulse Oximetry 96 01/05/18 13:00 01/05/18 14:00 01/05/18 15:00 Temperature 98.5 F Pulse Rate 71 68 65 Respiratory Rate 18 Blood Pressure 142/84 H Pulse Oximetry 97 01/05/18 16:00 01/05/18 17:00 01/05/18 18:00 Temperature Pulse Rate 67 72 67 Respiratory Rate Blood Pressure Pulse Oximetry 01/05/18 19:00 01/05/18 20:00 01/05/18 20:30 Temperature 98.1 F Pulse Rate 64 72 Respiratory Rate 18 Blood Pressure 148/82 H Pulse Oximetry 96 97 98 01/05/18 21:00 01/05/18 22:00 01/05/18 23:00 Temperature 98 F Pulse Rate 68 60 63 Respiratory Rate 16 Blood Pressure 120/71 Pulse Oximetry 96 01/06/18 00:00 01/06/18 01:00 01/06/18 02:00 Temperature Pulse Rate 60 58 L 56 L Respiratory Rate Blood Pressure Pulse Oximetry 01/06/18 03:00 01/06/18 04:00 01/06/18 05:00 Temperature 97.8 F Pulse Rate 57 L 66 62 Respiratory Rate 16 Blood Pressure 134/83 Pulse Oximetry 98 01/06/18 06:00 01/06/18 07:00 Temperature Pulse Rate 62 59 L Respiratory Rate Blood Pressure Pulse Oximetry Intake & Output 01/05/18 01/06/18 01/06/18 18:59 06:59 18:59 Intake Total 960 / 960 Output Total 700 / 700 Balance -700 / -700 960 / 960 Weight 85 kg Intake: Oral 960 / 960 Output: Urine 700 / 700 Other: # Voids 3 3 Date of Last Bowel Movement 01/05/18 01/05/18 # Bowel Movements 1 Narrative: GENERAL: Alert, oriented x3, NAD. SKIN: Warm and dry. HEAD: Normocephalic. EYES: No scleral icterus. No injection or drainage. NECK: Supple, trachea midline. No JVD or lymphadenopathy. CARDIOVASCULAR: Regular rate and rhythm without murmurs, gallops, or rubs. RESPIRATORY: Moderate air entry. Minor diffuse wheezing noted. GASTROINTESTINAL: Abdomen soft, non-tender, nondistended. MUSCULOSKELETAL: No cyanosis, or edema. BACK: Nontender without obvious deformity. No CVA tenderness. Results - Labs CBC & Chem 7: 01/04/18 03:24 01/04/18 03:24 - Procedures 01/03/2018 Cardiac catheterization 1. Near syncope, 30 seconds of ventricular tachycardia, possible culprit 95% stenosis in the proximal third obtuse marginal vessel as detailed above. 2. Otherwise, mild to moderate 3-vessel coronary artery disease in a right dominant system as detailed above. 3. Normal left ventricular systolic function with ejection fraction 60%. 4. Successful direct PCI bare metal stent of the proximal third obtuse marginal vessel from 95% to 0% with JESSENIA 3 flow. Assessment and Plan - Plan Mr. Pro is a pleasant 52-year-old male with a history of hypertension, tobacco use, alcohol use who was admitted to the hospital on 01/03 due to palpitation. Telemetry showed run of ventricular tachycardia. 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 Patient underwent cardiac catheterization on 01/03/2018 with a bare-metal stent placed to proximal third obtuse marginal vessel. Ventricular tachycardia Coronary artery disease Status post cardiac catheterization with bare-metal stent placed to proximal OM Continue aspirin 325 mg daily, carvedilol 3.125 mg p.o. twice daily, Plavix 75 mg p.o. daily daily Continue ramipril 2.5 mg p.o. daily. No further episodes of ventricular tachycardia. I discussed with Dr. Mckenna (cardiology). He recommends that we obtain a consultation of Dr. Salazar (electrophysiology) Dr. Salazar will not be available until 01/08/2018 Dr. Mckenna would prefer to have EP eval while patient is in-patient during this admission. Tobacco use Alcohol use Chronic back pain Continue as needed Percocet. No pain medication upon discharge Full code. Ambulation. Discharge plan: No significant change in management today 01/06/2018. Probable discharge on Monday01/08/2018.
--- NOTE | 2018-01-06 14:03 | P.PNCA ---
Subjective Interval history: alert in nad Medications and Allergies Active Medications: Active Medications Aspirin (Aspirin) 325 mg PO DAILY [facility] Last Admin: 01/06/18 09:13 Dose: 325 mg Carvedilol (Coreg) 3.125 mg PO BID [facility] Last Admin: 01/06/18 09:13 Dose: 3.125 mg Clopidogrel Bisulfate (Plavix) 75 mg PO DAILY [facility] Last Admin: 01/06/18 09:13 Dose: 75 mg Flumazenil (Romazecon Inj) 0.2 mg IV.PUSH Q1M PRN PRN Reason: OVERSEDATION Haloperidol Lactate (Haldol Inj) 1 mg IV.PUSH Q15M PRN PRN Reason: for severe agitation Sodium Chloride (Ns Inj) 1,000 mls @ 100 mls/hr IV.CONT .Q10H [facility] Last Admin: 01/06/18 12:33 Dose: Not Given Tirofiban/Sodium Chloride (Aggrastat Inj) 12,500 mcg in 250 mls @ 0 mls/hr IV.CONT .Q0M [facility]; Protocol Last Infusion: 01/04/18 10:01 Dose: Infused Lorazepam (Ativan) 1 mg PO Q4H PRN PRN Reason: for CIWA 8-10 Lorazepam (Ativan) 2 mg PO Q2H PRN PRN Reason: for CIWA 11-14 Lorazepam (Ativan Inj) 2 mg IV.PUSH Q1H PRN PRN Reason: for CIWA 15-20 Lorazepam (Ativan Inj) 2 mg IV.PUSH Q15M PRN PRN Reason: for CIWA > 20 Lorazepam (Ativan Inj) 1 mg IV.PUSH Q4H PRN PRN Reason: for CIWA 8-10 Lorazepam (Ativan Inj) 2 mg IV.PUSH Q2H PRN PRN Reason: for CIWA 11-14 Ondansetron HCl (Zofran Inj) 4 mg IV.PUSH Q6H PRN PRN Reason: NAUSEA Oxycodone/Acetaminophen (Percocet 5/325 Mg) 1 tab PO Q6H PRN PRN Reason: Pain 5-10 Last Admin: 01/06/18 12:34 Dose: 1 tab Ramipril (Altace) 2.5 mg PO DAILY [facility] Last Admin: 01/06/18 09:13 Dose: 2.5 mg Sodium Chloride (Ns Flush) 2 ml IV.FLUSH BID [facility] Last Admin: 01/06/18 09:14 Dose: 2 ml Sodium Chloride (Ns Flush) 2 ml IV.FLUSH PRN PRN PRN Reason: FLUSH AFTER USING IV ACCESS Temazepam (Restoril) 15 mg PO HS PRN PRN Reason: INSOMNIA Last Admin: 01/04/18 23:21 Dose: 15 mg Allergies Allergy/AdvReac Type Severity Reaction Status Date / Time No Known Allergies Allergy Uncoded 01/02/15 06:18 Home Medications Medication Instructions Recorded Confirmed Type No Known Home Medications 01/02/18 01/02/18 History Physical Exam Vital signs: Vital Signs 01/05/18 15:00 01/05/18 16:00 01/05/18 17:00 Temperature 98.5 F Pulse Rate 65 67 72 Respiratory Rate 18 Blood Pressure 142/84 H Pulse Oximetry 97 01/05/18 18:00 01/05/18 19:00 01/05/18 20:00 Temperature 98.1 F Pulse Rate 67 64 72 Respiratory Rate 18 Blood Pressure 148/82 H Pulse Oximetry 96 97 01/05/18 20:30 01/05/18 21:00 01/05/18 22:00 Temperature Pulse Rate 68 60 Respiratory Rate Blood Pressure Pulse Oximetry 98 01/05/18 23:00 01/06/18 00:00 01/06/18 01:00 Temperature 98 F Pulse Rate 63 60 58 L Respiratory Rate 16 Blood Pressure 120/71 Pulse Oximetry 96 01/06/18 02:00 01/06/18 03:00 01/06/18 04:00 Temperature 97.8 F Pulse Rate 56 L 57 L 66 Respiratory Rate 16 Blood Pressure 134/83 Pulse Oximetry 98 01/06/18 05:00 01/06/18 06:00 01/06/18 07:00 Temperature 97.8 F Pulse Rate 62 62 72 Respiratory Rate 16 Blood Pressure 105/58 L Pulse Oximetry 100 01/06/18 08:00 01/06/18 09:00 01/06/18 10:00 Temperature Pulse Rate 68 67 56 L Respiratory Rate Blood Pressure Pulse Oximetry 01/06/18 10:26 01/06/18 11:00 01/06/18 12:00 Temperature 97.9 F Pulse Rate 66 70 Respiratory Rate 16 Blood Pressure 139/83 Pulse Oximetry 98 96 Intake & Output 01/05/18 01/06/18 01/06/18 18:59 06:59 18:59 Intake Total 960 / 960 Output Total 700 / 700 Balance -700 / -700 960 / 960 Weight 85 kg Intake: Oral 960 / 960 Output: Urine 700 / 700 Other: # Voids 3 3 Date of Last Bowel Movement 01/05/18 01/05/18 # Bowel Movements 1 - Constitutional no acute distress - Routine HEENT Exam Head: Present: normocephalic - Routine Neck Exam Present: supple - Routine Respiratory Exam Present: CTA bilaterally - Routine Cardiovascular Exam Present: S1, S2 - Routine Abdominal Exam Present: soft - Routine Extremities Exam Comments: no bette Results 01/04/18 03:24 01/04/18 03:24 Intake and Output 01/05/18 01/06/18 01/06/18 22:59 06:59 14:59 Intake Total 960 / 960 Output Total 700 / 700 Balance -700 / -700 960 / 960 Intake: Oral 960 / 960 Output: Urine 700 / 700 Other: # Voids 3 3 Date of Last Bowel Movement 01/05/18 01/05/18 # Bowel Movements 1 Weight 85 kg Assessment and Plan - Assessment (1) CAD (coronary artery disease) Code(s): I25.10 - Atherosclerotic heart disease of [place] coronary artery without angina pectoris Status: Acute (2) Ventricular tachycardia Code(s): I47.2 - Ventricular tachycardia Status: Acute (3) Syncope Code(s): R55 - Syncope and collapse Status: Acute (4) Palpitations Code(s): R00.2 - Palpitations Status: Acute (5) Tobacco use Code(s): Z72.0 - Tobacco use Status: Chronic (6) Alcohol abuse Code(s): F10.10 - Alcohol abuse, uncomplicated Status: Chronic (7) Hypokalemia Code(s): E87.6 - Hypokalemia Status: Acute (8) Hypertension Code(s): I10 - Essential (primary) hypertension Status: Chronic - Plan 1.) CAD - pod # 3 bms om, assymptomatic, continue aspirin, plavix, coreg, altace , statin held due to elevated lfts 2.) VT - no repeat events, consult Dr Salazar for further evaluation, continue telemetry (8) Hypertension Qualifiers: Hypertension type: unspecified Qualified Code(s): I10 - Essential (primary) hypertension
[2018-01-07] MEDS: Sod Chloride 0.9% Inj 1,000 ML IV.CONT SCH ×2 (05:54→17:04)
[2018-01-07] MEDS: Ramipril 2.5 MG Capsule PO SCH (08:21)
[2018-01-07] MEDS: Aspirin 325 MG Tablet PO SCH (08:22)
--- NOTE | 2018-01-07 12:01 | P.PN ---
Subjective Interval history: Follow-up for ventricular tachycardia status post cardiac catheterization with bare-metal stent placed. Patient is currently doing well. No chest pain, shortness of breath, fever or chills. Ablating well in the room. No further episodes of ventricular tachycardia. Physical Exam Vital signs: Vital Signs 01/06/18 12:00 01/06/18 13:00 01/06/18 14:00 Temperature Pulse Rate 70 68 67 Respiratory Rate Blood Pressure Pulse Oximetry 01/06/18 15:00 01/06/18 16:00 01/06/18 17:00 Temperature 97.6 F Pulse Rate 67 67 68 Respiratory Rate 18 Blood Pressure 127/75 Pulse Oximetry 96 01/06/18 19:00 01/06/18 20:00 01/06/18 20:30 Temperature 98.0 F Pulse Rate 79 66 70 Respiratory Rate 18 Blood Pressure 180/90 H Pulse Oximetry 98 97 01/06/18 21:00 01/06/18 22:00 01/06/18 23:00 Temperature 97.7 F Pulse Rate 74 70 60 Respiratory Rate 20 Blood Pressure 153/86 H 146/74 H Pulse Oximetry 98 01/07/18 00:02 01/07/18 01:00 01/07/18 02:04 Temperature Pulse Rate 60 61 61 Respiratory Rate Blood Pressure Pulse Oximetry 01/07/18 03:00 01/07/18 03:14 01/07/18 03:28 Temperature 97.7 F Pulse Rate 59 L 69 Respiratory Rate 18 18 Blood Pressure 145/84 H Pulse Oximetry 99 01/07/18 04:00 01/07/18 05:00 01/07/18 06:00 Temperature Pulse Rate 59 L 61 62 Respiratory Rate Blood Pressure Pulse Oximetry 01/07/18 07:00 01/07/18 08:00 01/07/18 08:17 Temperature Pulse Rate 63 72 Respiratory Rate Blood Pressure Pulse Oximetry 98 01/07/18 08:20 01/07/18 09:00 01/07/18 09:52 Temperature 97.8 F Pulse Rate 66 66 Respiratory Rate 18 Blood Pressure 132/74 Pulse Oximetry 98 96 01/07/18 10:00 01/07/18 11:29 Temperature 97.5 F L Pulse Rate 72 66 Respiratory Rate 18 Blood Pressure 128/78 Pulse Oximetry 100 Intake & Output 01/06/18 01/07/18 01/07/18 18:59 06:59 18:59 Intake Total 840 / 840 960 / 960 Output Total 775 / 775 1600 / 1600 Balance 65 / 65 -640 / -640 Weight 87.1 kg Intake: Oral 840 / 840 960 / 960 Output: Urine 775 / 775 1600 / 1600 Other: Date of Last Bowel Movement 01/06/18 01/07/18 # Bowel Movements 1 Narrative: GENERAL: Alert, oriented x3, NAD. SKIN: Warm and dry. HEAD: Normocephalic. EYES: No scleral icterus. No injection or drainage. NECK: Supple, trachea midline. No JVD or lymphadenopathy. CARDIOVASCULAR: Regular rate and rhythm without murmurs, gallops, or rubs. RESPIRATORY: Moderate air entry. Minor diffuse wheezing noted. GASTROINTESTINAL: Abdomen soft, non-tender, nondistended. MUSCULOSKELETAL: No cyanosis, or edema. BACK: Nontender without obvious deformity. No CVA tenderness. Results - Labs CBC & Chem 7: 01/04/18 03:24 01/04/18 03:24 - Procedures 01/03/2018 Cardiac catheterization 1. Near syncope, 30 seconds of ventricular tachycardia, possible culprit 95% stenosis in the proximal third obtuse marginal vessel as detailed above. 2. Otherwise, mild to moderate 3-vessel coronary artery disease in a right dominant system as detailed above. 3. Normal left ventricular systolic function with ejection fraction 60%. 4. Successful direct PCI bare metal stent of the proximal third obtuse marginal vessel from 95% to 0% with JESSENIA 3 flow. Assessment and Plan - Plan Mr. Pro is a pleasant 52-year-old male with a history of hypertension, tobacco use, alcohol use who was admitted to the hospital on 01/03 due to palpitation. Telemetry showed run of ventricular tachycardia. 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 Patient underwent cardiac catheterization on 01/03/2018 with a bare-metal stent placed to proximal third obtuse marginal vessel. Ventricular tachycardia Coronary artery disease Status post cardiac catheterization with bare-metal stent placed to proximal OM Continue aspirin 325 mg daily, carvedilol 3.125 mg p.o. twice daily, Plavix 75 mg p.o. daily daily Continue ramipril 2.5 mg p.o. daily. No further episodes of ventricular tachycardia. I discussed with Dr. Mckenna (cardiology). He recommends that we obtain a consultation of Dr. Salazar (electrophysiology) Dr. Salazar will not be available until 01/08/2018 Dr. Mckenna would prefer to have EP eval while patient is in-patient during this admission. Tobacco use Alcohol use Chronic back pain Continue as needed Percocet. No pain medication upon discharge -[facility] protocol. Full code. Ambulation. Discharge plan: No significant change in management today 01/07/2018. Probable discharge on Monday01/08/2018 after EP evaluation.
--- NOTE | 2018-01-07 14:30 | P.PNCA ---
Subjective Interval history: alert in nad Medications and Allergies Active Medications: Active Medications Aspirin (Aspirin) 325 mg PO DAILY [facility] Last Admin: 01/07/18 08:22 Dose: 325 mg Carvedilol (Coreg) 3.125 mg PO BID [facility] Last Admin: 01/07/18 08:22 Dose: 3.125 mg Clopidogrel Bisulfate (Plavix) 75 mg PO DAILY [facility] Last Admin: 01/07/18 08:22 Dose: 75 mg Flumazenil (Romazecon Inj) 0.2 mg IV.PUSH Q1M PRN PRN Reason: OVERSEDATION Haloperidol Lactate (Haldol Inj) 1 mg IV.PUSH Q15M PRN PRN Reason: for severe agitation Sodium Chloride (Ns Inj) 1,000 mls @ 100 mls/hr IV.CONT .Q10H [facility] Last Admin: 01/07/18 05:54 Dose: Not Given Tirofiban/Sodium Chloride (Aggrastat Inj) 12,500 mcg in 250 mls @ 0 mls/hr IV.CONT .Q0M [facility]; Protocol Last Infusion: 01/04/18 10:01 Dose: Infused Lorazepam (Ativan) 1 mg PO Q4H PRN PRN Reason: for CIWA 8-10 Lorazepam (Ativan) 2 mg PO Q2H PRN PRN Reason: for CIWA 11-14 Lorazepam (Ativan Inj) 2 mg IV.PUSH Q1H PRN PRN Reason: for CIWA 15-20 Lorazepam (Ativan Inj) 2 mg IV.PUSH Q15M PRN PRN Reason: for CIWA > 20 Lorazepam (Ativan Inj) 1 mg IV.PUSH Q4H PRN PRN Reason: for CIWA 8-10 Lorazepam (Ativan Inj) 2 mg IV.PUSH Q2H PRN PRN Reason: for CIWA 11-14 Ondansetron HCl (Zofran Inj) 4 mg IV.PUSH Q6H PRN PRN Reason: NAUSEA Oxycodone/Acetaminophen (Percocet 5/325 Mg) 1 tab PO Q6H PRN PRN Reason: Pain 5-10 Last Admin: 01/07/18 10:06 Dose: 1 tab Ramipril (Altace) 2.5 mg PO DAILY [facility] Last Admin: 01/07/18 08:21 Dose: 2.5 mg Sodium Chloride (Ns Flush) 2 ml IV.FLUSH BID [facility] Last Admin: 01/07/18 08:22 Dose: 2 ml Sodium Chloride (Ns Flush) 2 ml IV.FLUSH PRN PRN PRN Reason: FLUSH AFTER USING IV ACCESS Temazepam (Restoril) 15 mg PO HS PRN PRN Reason: INSOMNIA Last Admin: 01/04/18 23:21 Dose: 15 mg Allergies Allergy/AdvReac Type Severity Reaction Status Date / Time No Known Allergies Allergy Uncoded 01/02/15 06:18 Home Medications Medication Instructions Recorded Confirmed Type No Known Home Medications 01/02/18 01/02/18 History Physical Exam Vital signs: Vital Signs 01/06/18 15:00 01/06/18 16:00 01/06/18 17:00 Temperature 97.6 F Pulse Rate 67 67 68 Respiratory Rate 18 Blood Pressure 127/75 Pulse Oximetry 96 01/06/18 19:00 01/06/18 20:00 01/06/18 20:30 Temperature 98.0 F Pulse Rate 79 66 70 Respiratory Rate 18 Blood Pressure 180/90 H Pulse Oximetry 98 97 01/06/18 21:00 01/06/18 22:00 01/06/18 23:00 Temperature 97.7 F Pulse Rate 74 70 60 Respiratory Rate 20 Blood Pressure 153/86 H 146/74 H Pulse Oximetry 98 01/07/18 00:02 01/07/18 01:00 01/07/18 02:04 Temperature Pulse Rate 60 61 61 Respiratory Rate Blood Pressure Pulse Oximetry 01/07/18 03:00 01/07/18 03:14 01/07/18 03:28 Temperature 97.7 F Pulse Rate 59 L 69 Respiratory Rate 18 18 Blood Pressure 145/84 H Pulse Oximetry 99 01/07/18 04:00 01/07/18 05:00 01/07/18 06:00 Temperature Pulse Rate 59 L 61 62 Respiratory Rate Blood Pressure Pulse Oximetry 01/07/18 07:00 01/07/18 08:00 01/07/18 08:17 Temperature Pulse Rate 63 72 Respiratory Rate Blood Pressure Pulse Oximetry 98 01/07/18 08:20 01/07/18 09:00 01/07/18 09:52 Temperature 97.8 F Pulse Rate 66 66 Respiratory Rate 18 Blood Pressure 132/74 Pulse Oximetry 98 96 01/07/18 10:00 01/07/18 11:29 Temperature 97.5 F L Pulse Rate 72 66 Respiratory Rate 18 Blood Pressure 128/78 Pulse Oximetry 100 Intake & Output 01/06/18 01/07/18 01/07/18 18:59 06:59 18:59 Intake Total 840 / 840 960 / 960 Output Total 775 / 775 1600 / 1600 Balance 65 / 65 -640 / -640 Weight 87.1 kg Intake: Oral 840 / 840 960 / 960 Output: Urine 775 / 775 1600 / 1600 Other: Date of Last Bowel Movement 01/06/18 01/07/18 # Bowel Movements 1 - Constitutional no acute distress - Routine HEENT Exam Head: Present: normocephalic - Routine Neck Exam Present: supple - Routine Respiratory Exam Present: CTA bilaterally - Routine Cardiovascular Exam Present: S1, S2 - Routine Abdominal Exam Present: soft - Routine Extremities Exam Comments: no bette Results 01/04/18 03:24 01/04/18 03:24 Intake and Output 01/06/18 01/07/18 01/07/18 22:59 06:59 14:59 Intake Total 840 / 840 960 / 960 Output Total 775 / 775 1600 / 1600 Balance 65 / 65 -640 / -640 Intake: Oral 840 / 840 960 / 960 Output: Urine 775 / 775 1600 / 1600 Other: Date of Last Bowel Movement 01/06/18 01/07/18 # Bowel Movements 1 Weight 87.1 kg Assessment and Plan - Assessment (1) CAD (coronary artery disease) Code(s): I25.10 - Atherosclerotic heart disease of [place] coronary artery without angina pectoris Status: Acute (2) Ventricular tachycardia Code(s): I47.2 - Ventricular tachycardia Status: Acute (3) Syncope Code(s): R55 - Syncope and collapse Status: Acute (4) Palpitations Code(s): R00.2 - Palpitations Status: Acute (5) Tobacco use Code(s): Z72.0 - Tobacco use Status: Chronic (6) Alcohol abuse Code(s): F10.10 - Alcohol abuse, uncomplicated Status: Chronic (7) Hypokalemia Code(s): E87.6 - Hypokalemia Status: Acute (8) Hypertension Code(s): I10 - Essential (primary) hypertension Status: Chronic - Plan 1.) CAD - pod # 4 bms om, assymptomatic, continue aspirin, plavix, coreg, altace , statin held due to elevated lfts 2.) VT - no repeat events, consult Dr Salazar for further evaluation, continue telemetry (8) Hypertension Qualifiers: Hypertension type: unspecified Qualified Code(s): I10 - Essential (primary) hypertension
[2018-01-08] MEDS: Sod Chloride 0.9% Inj 1,000 ML IV.CONT SCH ×2 (04:10→11:54)
[2018-01-08 07:55] VITALS: RESP 16
[2018-01-08] MEDS: Ramipril 2.5 MG Capsule PO SCH (08:56)
[2018-01-08] MEDS: Aspirin 325 MG Tablet PO SCH (08:56)
[2018-01-08 11:50] VITALS: PULSE 57
[2018-01-08 11:51] VITALS: BP 149/81; TEMP 98; O2SAT 100
--- NOTE | 2018-01-08 12:58 | P.DS ---
Date of admission: 01/03/18 01:37 Primary care physician: No Primary Care Physician Attending physician on discharge: Carlos Shipley Anticipated date of discharge: 01/08/18 Brief History from admission: 52 year old male with history of hypertension not currently on medications, current smoker, who drinks 10-12 beers daily presented to emergency room for further evaluation of palpitations. Onset last evening. Characterize heart "racing." Associated symptoms included dizziness, states "I thought I was going to pass out." Denied any chest pain or pressure. No nausea, vomiting, shortness of breath, or diaphoresis. No precipitating or relieving factors. Duration approximately 30 minutes. Second episode occurred last evening while watching TV around 1 a.m., reports heart began racing again and felt dizzy. Duration "a few minutes." monitoring coordinator revealed 30 seconds run VTACH, Dr. Benítez was notified in stripper opaquer. No recent illness, fever, or injury. Denies similar sensation in the past. Does not follow with a primary care provider. Past cardiac testing None Social history Endorses history of hypertension, currently not on medication. Does not follow with a PCP, cholesterol levels unknown. No known diabetes. Current 1.5 pack day smoker. Endorses drinking 10-12 beers daily. No recreational drug use. Endorses an active lifestyle. 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 Family history Noncontributory for early onset cardiovascular disease. DS: Medications - Discharge Medications Prescriptions: aspirin [Aspirin Low Dose] 81 mg PO DAILY #90 tab atorvastatin 20 mg PO DAILY #30 tab carvedilol [Coreg] 3.125 mg PO BID 30 Days #60 tab clopidogrel [Plavix] 75 mg PO DAILY #30 tab ramipril 2.5 mg PO DAILY 30 Days #30 cap DS: Summary Hospital Course: Mr. Pro is a pleasant 52-year-old male with a history of hypertension, tobacco use, alcohol use who was admitted to the hospital on 01/03 due to palpitation. Telemetry showed run of ventricular tachycardia. Subsequently patient was referred to on-call milk collector. Patient underwent cardiac catheterization on 01/03/2018 with a bare-metal stent placed to proximal third obtuse marginal vessel. Ventricular tachycardia Coronary artery disease Status post cardiac catheterization with bare-metal stent placed to proximal OM Continue aspirin 81 mg daily, carvedilol 3.125 mg p.o. twice daily, Plavix 75 mg p.o. daily daily Continue ramipril 2.5 mg p.o. daily. Patient's LFTs are not significantly elevated. It would be reasonable to keep him on atorvastatin 20 mg p.o. daily. Repeat CMP in 1 week. If LFTs remain the same or lower, primary care provider or patient's outpatient milk collector can increase atorvastatin to 40 mg daily. No further episodes of ventricular tachycardia. Dr. Salazar (EP) evaluated patient and cleared for discharge. Tobacco use Alcohol use Chronic back pain Continue as needed Percocet. No pain medication upon discharge -CIWA protocol provided during inpatient stay. Full code. Ambulation. - Time Spent with Patient Total time spent providing and/or coordinating discharge services: Less than 30 minutes - Quality: VTE Deep Vein Thrombosis/Pulmonary Embolism Present on Admission: No Exam Vital signs: Vital Signs 01/07/18 13:00 01/07/18 14:00 01/07/18 15:00 Temperature Pulse Rate 74 72 64 Respiratory Rate Blood Pressure Pulse Oximetry 01/07/18 15:37 01/07/18 16:00 01/07/18 17:00 Temperature 97.6 F Pulse Rate 68 74 82 Respiratory Rate 18 Blood Pressure 140/81 Pulse Oximetry 99 01/07/18 18:00 01/07/18 19:00 01/07/18 19:49 Temperature 97.9 F Pulse Rate 64 81 71 Respiratory Rate 18 Blood Pressure 117/77 Pulse Oximetry 99 01/07/18 20:00 01/07/18 21:00 01/07/18 22:00 Temperature Pulse Rate 70 64 64 Respiratory Rate Blood Pressure Pulse Oximetry 01/07/18 23:00 01/07/18 23:55 01/08/18 01:00 Temperature 98.3 F Pulse Rate 64 60 65 Respiratory Rate 18 Blood Pressure 141/76 H Pulse Oximetry 97 01/08/18 01:56 01/08/18 03:00 01/08/18 03:58 Temperature 98.3 F Pulse Rate 71 61 61 Respiratory Rate 18 Blood Pressure 143/83 H Pulse Oximetry 97 01/08/18 05:00 01/08/18 05:55 01/08/18 07:00 Temperature 97.9 F Pulse Rate 60 59 L 65 Respiratory Rate 16 Blood Pressure 161/87 H Pulse Oximetry 98 01/08/18 08:00 01/08/18 09:00 01/08/18 10:00 Temperature Pulse Rate 61 62 63 Respiratory Rate Blood Pressure Pulse Oximetry 01/08/18 11:00 01/08/18 11:49 Temperature 98 F Pulse Rate 60 57 L Respiratory Rate 16 Blood Pressure 149/81 H Pulse Oximetry 100 Intake & Output 01/07/18 01/08/18 01/08/18 18:59 06:59 18:59 Intake Total 720 / 720 2380 / 2380 0 / 0 Output Total 1400 / 1400 1999 Balance -680 / -680 380 / 380 0 / 0 Weight 87.6 kg Intake: IV 1660 / 1660 0 / 0 NS Inj 1,000 ML @ 100 mls/hr IV 1660 / 1660 0 / 0 .CONT .Q10H [facility] Rx#:[id number] Oral 720 / 720 720 / 720 Output: Urine 1400 / 1400 1999 Other: Date of Last Bowel Movement 01/07/18 # Bowel Movements 1 Results Procedures completed during hospitalization: 01/03/2018 Cardiac catheterization 1. Near syncope, 30 seconds of ventricular tachycardia, possible culprit 95% stenosis in the proximal third obtuse marginal vessel as detailed above. 2. Otherwise, mild to moderate 3-vessel coronary artery disease in a right dominant system as detailed above. 3. Normal left ventricular systolic function with ejection fraction 60%. 4. Successful direct PCI bare metal stent of the proximal third obtuse marginal vessel from 95% to 0% with JESSENIA 3 flow. - Impressions ITS Impressions Chest X-Ray 01/02/18 22:56 CONCLUSION: No acute cardiopulmonary disease identified. Chest CTA 01/03/18 01:35 CONCLUSION: No evidence of pulmonary embolus. Discharge Plan - Discharge Disposition Patient Disposition: Discharge Home - Discharge Condition Condition: Good - Discharge Order Discharge Orders: Discharge Order (Routine); Ordered 01/08/18 Ordered By: Carlos Shipley - Discharge Details Anticipated Discharge Date: 01/08/18 Discharge Comment: Per RN, Dr. Salazar () has cleared patient for discharge. - Physicians Team Primary Care Provider: Primary Care Physici,No Attending Provider: Carlos Shipley Other Providers: Rangel Sanchez MD ; Kemal Mckenna MD ; Rj Salazar MD
--- NOTE | 2018-01-08 13:53 | MB ---
cc: Rj Salazar MD DATE: 01/08/2018 REASON FOR CONSULTATION: Ventricular tachycardia and syncope. HISTORY OF PRESENT ILLNESS: Mr. Pro is a 52-year-old gentleman with history of heavy drinking and smoker, was at home, began with palpitation. He was brought to the emergency room. Ventricular tachycardia observed. The patient did not have any syncope. During hospitalization, left heart catheterization was performed by Dr. Mckenna. PTCA to the third OM was performed. The patient has a normal ejection fraction. I was consulted for evaluation and management. The chart was reviewed. The patient was evaluated. ALLERGIES: None. SOCIAL HISTORY: The patient smokes and drinks heavily. FAMILY HISTORY: Noncontributory to his current medical condition. MEDICATIONS: Norvasc 5 mg a day. He is on aspirin. He is on Coreg 3.125 mg twice a day. Plavix 75 mg a day. He is on Restoril p.r.n. REVIEW OF SYSTEMS: Currently reveals no chest pain. No chest discomfort. No new episode of dizziness or syncope. PHYSICAL EXAMINATION: GENERAL: Alert, fully oriented. VITAL SIGNS: Blood pressure 149/81, pulse 60, respiratory rate 18. LUNGS: Ventilated. CARDIOVASCULAR: S1, S2. No gallop. No murmur. ABDOMEN: Soft. No mass. No bruits. EXTREMITIES: No edema. LABORATORY DATA: Electrocardiogram from 01/08/2018 indicates sinus rhythm, diffuse ST changes. Hemoglobin 13, white blood cell 7.7. INR 1. Potassium is 3.5, creatinine 0.77. HDL 52, LDL 71. Triglyceride 273. TSH 5.4. ASSESSMENT AND RECOMMENDATIONS: Mr. Pro is currently stable. No chest pain or discomfort. No ventricular tachycardia during hospitalization. Ejection fraction is 60%. There is a recent percutaneous transluminal coronary angioplasty to obtuse marginal 3. A bare metal stent was implanted. At this point, my recommendation is observation. If this gentleman has episode of dizziness and syncope, then I will consider electrophysiology study. Case extensively discussed with him. He can be discharged home and I will see him in my office in 3 weeks. Rj Salazar MD HS/es , 12:52 PM , 01:00 PM
[2018-01-08] MEDS ORDERED: Iohexol 350 MG/ML 100 ML Vial (for Cath Lab) IVCONTRAST ONE (14:19)
--- NOTE | 2018-01-08 17:32 | P.PNCA ---
Subjective Interval history: alert in nad Medications and Allergies Active Medications: Active Medications Aspirin (Aspirin) 325 mg PO DAILY [facility] Last Admin: 01/08/18 08:56 Dose: 325 mg Carvedilol (Coreg) 3.125 mg PO BID [facility] Last Admin: 01/08/18 08:56 Dose: 3.125 mg Clopidogrel Bisulfate (Plavix) 75 mg PO DAILY [facility] Last Admin: 01/08/18 08:56 Dose: 75 mg Flumazenil (Romazecon Inj) 0.2 mg IV.PUSH Q1M PRN PRN Reason: OVERSEDATION Haloperidol Lactate (Haldol Inj) 1 mg IV.PUSH Q15M PRN PRN Reason: for severe agitation Sodium Chloride (Ns Inj) 1,000 mls @ 100 mls/hr IV.CONT .Q10H [facility] Last Admin: 01/08/18 11:54 Dose: Not Given Tirofiban/Sodium Chloride (Aggrastat Inj) 12,500 mcg in 250 mls @ 0 mls/hr IV.CONT .Q0M [facility]; Protocol Last Infusion: 01/04/18 10:01 Dose: Infused Lorazepam (Ativan) 1 mg PO Q4H PRN PRN Reason: for CIWA 8-10 Lorazepam (Ativan) 2 mg PO Q2H PRN PRN Reason: for CIWA 11-14 Lorazepam (Ativan Inj) 2 mg IV.PUSH Q1H PRN PRN Reason: for CIWA 15-20 Lorazepam (Ativan Inj) 2 mg IV.PUSH Q15M PRN PRN Reason: for CIWA > 20 Lorazepam (Ativan Inj) 1 mg IV.PUSH Q4H PRN PRN Reason: for CIWA 8-10 Lorazepam (Ativan Inj) 2 mg IV.PUSH Q2H PRN PRN Reason: for CIWA 11-14 Ondansetron HCl (Zofran Inj) 4 mg IV.PUSH Q6H PRN PRN Reason: NAUSEA Oxycodone/Acetaminophen (Percocet 5/325 Mg) 1 tab PO Q6H PRN PRN Reason: Pain 5-10 Last Admin: 01/08/18 08:55 Dose: 1 tab Ramipril (Altace) 2.5 mg PO DAILY [facility] Last Admin: 01/08/18 08:56 Dose: 2.5 mg Sodium Chloride (Ns Flush) 2 ml IV.FLUSH BID [facility] Last Admin: 01/08/18 08:56 Dose: 2 ml Sodium Chloride (Ns Flush) 2 ml IV.FLUSH PRN PRN PRN Reason: FLUSH AFTER USING IV ACCESS Temazepam (Restoril) 15 mg PO HS PRN PRN Reason: INSOMNIA Last Admin: 01/04/18 23:21 Dose: 15 mg Allergies Allergy/AdvReac Type Severity Reaction Status Date / Time No Known Allergies Allergy Uncoded 01/02/15 06:18 Home Medications Medication Instructions Recorded Confirmed Type No Known Home Medications 01/02/18 01/02/18 History Physical Exam Vital signs: Vital Signs 01/07/18 18:00 01/07/18 19:00 01/07/18 19:49 Temperature 97.9 F Pulse Rate 64 81 71 Respiratory Rate 18 Blood Pressure 117/77 Pulse Oximetry 99 01/07/18 20:00 01/07/18 21:00 01/07/18 22:00 Temperature Pulse Rate 70 64 64 Respiratory Rate Blood Pressure Pulse Oximetry 01/07/18 23:00 01/07/18 23:55 01/08/18 01:00 Temperature 98.3 F Pulse Rate 64 60 65 Respiratory Rate 18 Blood Pressure 141/76 H Pulse Oximetry 97 01/08/18 01:56 01/08/18 03:00 01/08/18 03:58 Temperature 98.3 F Pulse Rate 71 61 61 Respiratory Rate 18 Blood Pressure 143/83 H Pulse Oximetry 97 01/08/18 05:00 01/08/18 05:55 01/08/18 07:00 Temperature 97.9 F Pulse Rate 60 59 L 65 Respiratory Rate 16 Blood Pressure 161/87 H Pulse Oximetry 98 01/08/18 08:00 01/08/18 09:00 01/08/18 10:00 Temperature Pulse Rate 61 62 63 Respiratory Rate Blood Pressure Pulse Oximetry 01/08/18 11:00 01/08/18 11:49 Temperature 98 F Pulse Rate 60 57 L Respiratory Rate 16 Blood Pressure 149/81 H Pulse Oximetry 100 Intake & Output 01/07/18 01/08/18 01/08/18 18:59 06:59 18:59 Intake Total 720 / 720 2380 / 2380 0 / 0 Output Total 1400 / 1400 1999 / 1999 Balance -680 / -680 380 / 380 0 / 0 Weight 87.6 kg Intake: IV 1660 / 1660 0 / 0 NS Inj 1,000 ML @ 100 mls/hr IV 1660 / 1660 0 / 0 .CONT .Q10H [facility] Rx#:[id number] Oral 720 / 720 720 / 720 Output: Urine 1400 / 1400 1999 Other: Date of Last Bowel Movement 01/07/18 # Bowel Movements 1 - Constitutional no acute distress - Routine HEENT Exam Head: Present: normocephalic - Routine Neck Exam Present: supple - Routine Respiratory Exam Present: CTA bilaterally - Routine Cardiovascular Exam Present: S1, S2 - Routine Abdominal Exam Present: soft - Routine Extremities Exam Comments: no bette Results 01/04/18 03:24 01/04/18 03:24 Intake and Output 01/08/18 01/08/18 01/08/18 06:59 14:59 22:59 Intake Total 2380 / 2380 0 / 0 Output Total 1999 Balance 380 / 380 0 / 0 Intake: IV 1660 / 1660 0 / 0 NS Inj 1,000 ML @ 100 mls/hr IV 1660 / 1660 0 / 0 .CONT .Q10H [facility] Rx#:[id number] Oral 720 / 720 Output: Urine 1999 Other: Weight 87.6 kg Assessment and Plan - Assessment (1) CAD (coronary artery disease) Code(s): I25.10 - Atherosclerotic heart disease of [place] coronary artery without angina pectoris Status: Acute (2) Ventricular tachycardia Code(s): I47.2 - Ventricular tachycardia Status: Acute (3) Syncope Code(s): R55 - Syncope and collapse Status: Acute (4) Palpitations Code(s): R00.2 - Palpitations Status: Acute (5) Tobacco use Code(s): Z72.0 - Tobacco use Status: Chronic (6) Alcohol abuse Code(s): F10.10 - Alcohol abuse, uncomplicated Status: Chronic (7) Hypokalemia Code(s): E87.6 - Hypokalemia Status: Acute (8) Hypertension Code(s): I10 - Essential (primary) hypertension Status: Chronic - Plan 1.) CAD - pod # 5 bms om, assymptomatic, continue aspirin, plavix, coreg, altace , statin held due to elevated lfts 2.) VT - no repeat events, consult Dr Salazar for further evaluation, continue telemetry 3.) I strongly advised patient to be compliant with aspirin and plavix or risk life threatening stent thrombosis, he understands and states he will be compliant (8) Hypertension Qualifiers: Hypertension type: unspecified Qualified Code(s): I10 - Essential (primary) hypertension
== END 2018-01-08 14:20 | disposition home or self-care (01) ==
LOC: NEPC 22:45 → NEDA 22:45 → NEPFCDU 01-03 03:44 → HCIS 01-03 15:35 → HCPC 01-03 18:28
PROVIDERS: ADMIT Hospitalist; ATTEND Hospitalist

== ENCOUNTER 2018-02-14 21:26 | Inpatient (IN) ==
[2018-02-14] MEDS ORDERED: Enoxaparin Inj 80 MG/0.8 ML Syringe SQ ONE (21:49)
[2018-02-14] MEDS ORDERED: Aspirin 325 MG Tablet PO ONE (21:49)
--- NOTE | 2018-02-14 21:49 | CT ---
EXAM DATE: 02/14/2018 9:41 PM EST AGE/SEX: 52 years / Male INDICATIONS: STROKE ALERT. Left sided weakness. CLINICAL DATA: This is the patient's initial encounter. Patient reports that signs and symptoms have been present for 1 day and indicates a pain score of 0/10. MEDICAL/SURGICAL HISTORY: None. None. RADIATION DOSE: 38.85 CTDI (mGy) COMPARISON: . TECHNIQUE: CT of the head without contrast. Using automated exposure control and adjustment of the mA and/or kV according to patient size, radiation dose was kept as low as reasonably achievable to ob tain optimal diagnostic quality images. DICOM format image data is available electronically for revi ew and comparison. FINDINGS: Cerebrum: The ventricles are normal for age. Lacunar infarct right caudate head. No evidence of midl ine shift, mass lesion, hemorrhage or acute infarction. No extraaxial fluid collections are seen. Posterior Fossa: The cerebellum and brainstem are intact. The 4th ventricle is midline. The cerebe llopontine angle is unremarkable. Extracranial: The visualized portion of the orbits is intact. Opacification left maxillary sinus. Skull: The calvaria is intact. No evidence of skull fracture. CONCLUSION: 1. Lacunar infarct right caudate head likely old. 2. No acute intracranial abnormality. 3. Complete opacification left maxillary sinus. Report was called by Migdalia Gold at 9:45pm Electronically signed by: Shilo Live MD Board Certified Radiologist 02/14/2018 9:48 PM EST
[2018-02-14 21:52] LABS: Baso # (Auto) 0.1 th/mm3 (0.0-0.2); Baso % (Auto) 1.1 % (0.0-2.0); Eos # (Auto) 0.4 th/mm3 (0.0-0.4); Eos % (Auto) 5.8 % (0.0-4.0); Hematocrit 39.8 % (39.0-51.0); Hemoglobin 14.1 gm/dL (13.0-17.0); Lymph # (Auto) 2.6 th/mm3 (1.0-4.8); Lymph % (Auto) 40.8 % (9.0-44.0); Mean Corpuscular HGB Conc 35.3 % (32.0-36.0); Mean Corpuscular Hemoglobin 30.7 pg (27.0-34.0); Mean Corpuscular Volume 87.1 fL (80.0-100.0); Mean Platelet Volume 7.2 fL (7.0-11.0); Mono # (Auto) 0.7 th/mm3 (0.0-0.9); Mono % (Auto) 10.5 % (0.0-8.0); Neut # (Auto) 2.7 th/mm3 (1.8-7.7); Neut % (Auto) 41.8 % (16.0-70.0); Platelet Count 306 th/mm3 (150-450); Red Blood Count 4.57 mil/mm3 (4.50-5.90); Red Cell Distribution Width 13.9 % (11.6-17.2); White Blood Count 6.4 th/mm3 (4.0-11.0)
--- NOTE | 2018-02-14 22:01 | ED ---
HPI General Chief Complaint: Stroke Alert Stated Complaint: STROKE ALERT Time Seen by Provider: 02/14/18 21:32 Source: patient and EMS Mode of arrival: EMS Limitations: no limitations History of Present Illness HPI Narrative: 52-year-old male patient with history of CAD status post stenting , hypertension, presents to the ER today brought in by EMS as a stroke alert. He apparently started having left-sided weakness, paresthesias about an hour prior to arrival. He states that he noticed that it just was not going away and went to the neighbor's house to get some help. He states that he did have some symptoms overnight but it had gone away. He currently states that some of the weakness is getting better but he is still having some paresthesias in his left face. He denies any chest pains, trouble breathing, or any other symptoms. modifying Factors: None Associated Signs & Symptoms: Stroke alert, left-sided weakness Risk Factors: None Related Data Home Medications Medication Instructions Recorded Confirmed No Known Home Medications 01/02/18 02/14/18 Previous Rx's Medication Instructions Recorded aspirin [Aspirin Low Dose] 81 mg PO DAILY #90 tab 01/08/18 atorvastatin 20 mg PO DAILY #30 tab 01/08/18 carvedilol [Coreg] 3.125 mg PO BID 30 Days #60 tab 01/08/18 clopidogrel [Plavix] 75 mg PO DAILY #30 tab 01/08/18 ramipril 2.5 mg PO DAILY 30 Days #30 cap 01/08/18 Allergies Allergy/AdvReac Type Severity Reaction Status Date / Time No Known Allergies Allergy nkda Uncoded 02/14/18 21:30 Review of Systems ROS: all other systems reviewed are negative [facility] Medical History Medical History Gout (Acute) Hypertension (Acute) Surgical History Surgical History H/O heart artery stent (Acute) H/O knee surgery (Acute) Social History Social History Substance History: No History of Abuse Second Hand Smoke Exposure: No Smoking Status: Current every day smoker Tobacco Type: Cigarettes Packs Per Day: 1.5 Cigarettes Per Day: 30.0 How Often Do You Have a Drink Containing Alcohol: 4 or more times a week Recent Travel in [facility] within the Last 8 Weeks: No Recent Out of Country Travel within the Last 8 Weeks: No Immunization History Tetanus Immunization: <5 Years Exam Narrative Exam Narrative: GENERAL: Pleasant well-developed middle-aged male patient currently in mild distress. Awake and oriented x3. SKIN: Focused skin assessment warm/dry. HEAD: Atraumatic. Normocephalic. EYES: Pupils equal and round. No scleral icterus. No injection or drainage. ENT: No nasal bleeding or discharge. Mucous membranes pink and moist. NECK: Trachea midline. No JVD. CARDIOVASCULAR: Regular rate and rhythm. No murmur appreciated. RESPIRATORY: No accessory muscle use. Clear to auscultation. Breath sounds equal bilaterally. GASTROINTESTINAL: Abdomen soft, non-tender, nondistended. Hepatic and splenic margins not palpable. MUSCULOSKELETAL: No obvious deformities. No clubbing. No cyanosis. No edema. NEUROLOGICAL: Awake and alert. No obvious cranial nerve deficits except for very mild left facial numbness around the lip. Motor grossly within normal limits. Normal speech. PSYCHIATRIC: Appropriate mood and affect; insight and judgment normal. Course Initial Documented Vital Signs Temperature 97 F L 02/14/18 21:31 Pulse Rate 79 02/14/18 21:31 Respiratory Rate 16 02/14/18 21:31 Blood Pressure 157/100 H 02/14/18 21:31 Pulse Oximetry 98 02/14/18 21:31 Last Documented Vital Signs Temperature 98 F 02/14/18 21:33 Pulse Rate 69 02/14/18 22:49 Respiratory Rate 16 02/14/18 22:49 Blood Pressure 157/70 H 02/14/18 22:49 Pulse Oximetry 98 02/14/18 22:49 NIH Stroke Scale NIH Stroke Scale Level of Consciousness: 0-Alert Orientation Questions: 0-Answers both correct Responds to Commands: 0-Both tasks correct Gaze Eye Movement: 0-Horizontal movement WNL Visual Srivastava: 0-No visual field defect Facial Movement: 0-Normal Motor Functions Arm LEFT: 0-No drift Motor Functions Arm RIGHT: 0-No drift Motor Functions Leg LEFT: 0-No drift Motor Functions Leg RIGHT: 0-No drift Limb Ataxia: 0-No ataxia Sensory Loss: 1-Mild sensory loss Best Language: 0-Normal Articulation: 0-Normal Extinction or Inattention Sensory: 0-Absent Total: 1 Medical Decision Making MDM Narrative Medical decision making narrative: Patient was evaluated and discussed with Dr. Cuellar. Symptoms appear to be improving in the ER and the only thing that he still has is mild left facial paresthesias. I barely see any facial droop as well. Good arm strength and leg strength. And at this point, it is determined that his symptoms are fairly mild, does not seem appropriate to put him at risk for further complications with TPA. Symptoms are rapidly improving. At this point, further CTA and perfusion scans were ordered, and per discussion with Dr. Cuellar, plan would be to give him aspirin, Lovenox, pending further evaluation and treatment. Head of bed flat. Planning to admit for further treatment. Case is discussed with Dr. Zhu for admission. Medical Screen Exam Complete: Yes Emergency Medical Condition: Yes Differential Diagnosis Differential Diagnosis: CVA versus ICH versus electrolyte abnormalities Lab Data Result diagrams: 02/14/18 21:31 02/14/18 21:31 Lab Results 02/14/18 02/14/18 02/14/18 Range/Units 21:31 21:31 21:31 WBC 6.4 (4.0-11.0) th/mm3 RBC 4.57 (4.50-5.90) mil/mm3 Hgb 14.1 (13.0-17.0) gm/dL POC Hgb (Calc) 13.6 (13.0-17.0) g/dL Hct 39.8 (39.0-51.0) % POC Hct 40.0 (39-51.0) % MCV 87.1 (80.0-100.0) fL MCH 30.7 (27.0-34.0) pg MCHC 35.3 (32.0-36.0) % RDW 13.9 (11.6-17.2) % Plt Count 306 (150-450) th/mm3 MPV 7.2 (7.0-11.0) fL Neut % (Auto) 41.8 (16.0-70.0) % Lymph % (Auto) 40.8 (9.0-44.0) % [place] % (Auto) 10.5 H (0.0-8.0) % Eos % (Auto) 5.8 H (0.0-4.0) % Baso % (Auto) 1.1 (0.0-2.0) % Neut # (Auto) 2.7 (1.8-7.7) th/mm3 Lymph # (Auto) 2.6 (1.0-4.8) th/mm3 [place] # (Auto) 0.7 (0.0-0.9) th/mm3 Eos # (Auto) 0.4 (0.0-0.4) th/mm3 Baso # (Auto) 0.1 (0.0-0.2) th/mm3 WBC Differential . Differential Comment Auto diff final PT 9.8 (9.8-11.6) sec INR 1.0 Ratio APTT 26.3 (23.4-31.7) sec POC Sodium 138 (137-144) mmol/L Sodium 136 (136-145) meq/L POC Potassium 4.2 (3.6-5.0) mmol/L Potassium 4.2 (3.5-5.1) meq/L POC Chloride 101 L (102-111) mmol/L Chloride 103 (98-107) meq/L Carbon Dioxide 24.1 (21.0-32.0) meq/L Anion Gap 9 (5-15) meq/L POC BUN 9 (5-21) mg/dL BUN 11 (7-18) mg/dL Creatinine 1.02 (0.60-1.30) mg/dL POC Creatinine 1.0 (0.6-1.3) mg/dL Estimated GFR 76 L (>89) mL/min POC Glucose 88 (68-110) mg/dL Random Glucose 86 (74-106) mg/dL Calcium 8.3 L (8.5-10.1) mg/dL Total Creatine Kinase 215 (39-308) U/L CK-MB (CK-2) 1.9 (0.5-3.6) ng/mL Troponin I Less than 0.02 L (0.02-0.05) ng/mL Urine Color (Yellw/Straw) Urine Clarity (Clear) Urine pH (5.0-8.5) Ur Specific Liberal (1.002-1.035) Urine Protein (Neg-Trace) mg/dL Urine Glucose (UA) (Negative) mg/dL Urine Ketones (Negative) mg/dL Urine Occult Blood (Negative) Urine Nitrate (Negative) Urine Bilirubin (Negative) Urine Urobilinogen (Less than 2) mg/dL Ur Leukocyte Esterase (Negative) Urine RBC (0-3) /hpf Urine WBC (0-5) /hpf Micro UA Comment Ur Microscopic Review Urine Culture Comments 02/14/18 Range/Units 22:14 WBC (4.0-11.0) th/mm3 RBC (4.50-5.90) mil/mm3 Hgb (13.0-17.0) gm/dL POC Hgb (Calc) (13.0-17.0) g/dL Hct (39.0-51.0) % POC Hct (39-51.0) % MCV (80.0-100.0) fL MCH (27.0-34.0) pg MCHC (32.0-36.0) % RDW (11.6-17.2) % Plt Count (150-450) th/mm3 MPV (7.0-11.0) fL Neut % (Auto) (16.0-70.0) % Lymph % (Auto) (9.0-44.0) % [place] % (Auto) (0.0-8.0) % Eos % (Auto) (0.0-4.0) % Baso % (Auto) (0.0-2.0) % Neut # (Auto) (1.8-7.7) th/mm3 Lymph # (Auto) (1.0-4.8) th/mm3 [place] # (Auto) (0.0-0.9) th/mm3 Eos # (Auto) (0.0-0.4) th/mm3 Baso # (Auto) (0.0-0.2) th/mm3 WBC Differential Differential Comment PT (9.8-11.6) sec INR Ratio APTT (23.4-31.7) sec POC Sodium (137-144) mmol/L Sodium (136-145) meq/L POC Potassium (3.6-5.0) mmol/L Potassium (3.5-5.1) meq/L POC Chloride (102-111) mmol/L Chloride (98-107) meq/L Carbon Dioxide (21.0-32.0) meq/L Anion Gap (5-15) meq/L POC BUN (5-21) mg/dL BUN (7-18) mg/dL Creatinine (0.60-1.30) mg/dL POC Creatinine (0.6-1.3) mg/dL Estimated GFR (>89) mL/min POC Glucose (68-110) mg/dL Random Glucose (74-106) mg/dL Calcium (8.5-10.1) mg/dL Total Creatine Kinase (39-308) U/L CK-MB (CK-2) (0.5-3.6) ng/mL Troponin I (0.02-0.05) ng/mL Urine Color Straw (Yellw/Straw) Urine Clarity Clear (Clear) Urine pH 6.0 (5.0-8.5) Ur Specific Liberal 1.009 (1.002-1.035) Urine Protein Negative (Neg-Trace) mg/dL Urine Glucose (UA) Negative (Negative) mg/dL Urine Ketones Negative (Negative) mg/dL Urine Occult Blood Negative (Negative) Urine Nitrate Negative (Negative) Urine Bilirubin Negative (Negative) Urine Urobilinogen Less than 2 (Less than 2) mg/dL Ur Leukocyte Esterase Negative (Negative) Urine RBC Less than 1 (0-3) /hpf Urine WBC Less than 1 (0-5) /hpf Micro UA Comment Culture not ind Ur Microscopic Review Not Reportable Urine Culture Comments Culture not ind Imaging Data Radiologist's impression: Chest X-Ray 02/14/18 21:32 CONCLUSION: No acute cardiopulmonary disease Head CT 02/14/18 21:32 CONCLUSION: 1. Lacunar infarct right caudate head likely old. 2. No acute intracranial abnormality. 3. Complete opacification left maxillary sinus. Report was called by [ [facility] at 9:45pm CT CAD 02/14/18 21:49 CONCLUSION: Physiological brain perfusion parameters with RAPID analysis as above. The decision for consideration of therapy is multi factorial and multi disciplinary relying on subjective and objective clinical data. This data is not construed or intended to be the sole determinant of treatment eligibility. Head CTA 02/14/18 21:49 CONCLUSION: 1. No large vessel stenosis, aneurysm or thrombosis. Neck CTA 02/14/18 21:49 CONCLUSION: 1. No significant carotid stenosis. Discharge Plan Discharge Disposition Patient Disposition: ED Admit(ED Internal Use Only) Discharge Condition Condition: Stable Discharge Order Discharge Orders: ED Use Only Admit Order (Routine); Ordered 02/14/18 Ordered By: Rosanna Gold Discharge Details Anticipated Discharge Date: 02/14/18 Diagnosis: Transient cerebral ischemia Physicians Team ED Provider: Rosanna Gold Primary Care Provider: Primary Care Marjorie Otero Attending Provider: Vonnie Zhu Status ED Status: Admitted Patient
[2018-02-14 22:03] LABS: Activated Partial Thrombo Time 26.3 sec (23.4-31.7); Prothrombin Time 9.8 sec (9.8-11.6)
--- NOTE | 2018-02-14 22:16 | XR ---
EXAM DATE: 02/14/2018 10:11 PM EST AGE/SEX: 52 years / Male INDICATIONS: Stroke alert. CLINICAL DATA: This is the patient's initial encounter. Patient reports that signs and symptoms have been present for 2 days and indicates a pain score of 0/10. MEDICAL/SURGICAL HISTORY: None. . Cardiac [place]. [place] [facility] [place]. . FINDINGS: A single AP view of the chest demonstrates the lungs to be symmetrically aerated without evidence of mass, infiltrate or effusion. The cardiomediastinal contours are unremarkable. Osseous structures a re intact. CONCLUSION: No acute cardiopulmonary disease Electronically signed by: Shilo Live MD Board Certified Radiologist 02/14/2018 10:15 PM EST
--- NOTE | 2018-02-14 22:20 | CT ---
EXAM DATE: 02/14/2018 10:16 PM EST AGE/SEX: 52 years / Male INDICATIONS: left sided weakness. CLINICAL DATA: This is the patient's initial encounter. Patient reports that signs and symptoms have been present for 1 day and indicates a pain score of 0/10. MEDICAL/SURGICAL HISTORY: . unknown . recent stents RADIATION DOSE: 314.22 CTDI (mGy) COMPARISON: [facility], CTA HEAD W CONTRAST W 3D, 02/14/2018. . TECHNIQUE: CT of the head after intravenous administration of 100ml ml Omnipaque 350 (iohexol) shanna onic water-soluble contrast as a cumulative dose for multiple exams. Using automated exposure contro l and adjustment of the mA and/or kV according to patient size, radiation dose was kept as low as debbie sonably achievable to obtain optimal diagnostic quality images. DICOM format image data is available electronically for review and comparison. FINDINGS: 1. CBF (<30%) Volume (ml): 0ml 2. Perfusion (Tmax>6.0s) Volume (ml): 0ml 3. Mismatch Volume (ml) (Tmax>6.0 - CBF): 0ml CONCLUSION: Physiological brain perfusion parameters with RAPID analysis as above. The decision for consideration of therapy is multi factorial and multi disciplinary relying on subjec tive and objective clinical data. This data is not construed or intended to be the sole determinant of treatment eligibility. Electronically signed by: Shilo Live MD Board Certified Radiologist 02/14/2018 10:19 PM EST
--- NOTE | 2018-02-14 22:27 | CT ---
EXAM DATE: 02/14/2018 10:16 PM EST AGE/SEX: 52 years / Male INDICATIONS: Left sided weakness. CLINICAL DATA: This is the patient's initial encounter. Patient reports that signs and symptoms have been present for 1 day and indicates a pain score of 0/10. MEDICAL/SURGICAL HISTORY: . . Stents recently RADIATION DOSE: 26.04 CTDI (mGy) [place] [facility] [place] W 3D, 02/14/2018. . TECHNIQUE: Volumetric scanning was performed using a multi-row detector CT scanner during bolus infu gely of 100ml ml Omnipaque 350 (iohexol) nonionic water-soluble contrast as a cumulative dose for mu ltiple exams. The data was post processed with a variety of visualization algorithms including full volume maximum intensity projection, multi-planar sliding thin slab reformation, curved planar refor mation, and surface rendering techniques. Using automated exposure control and adjustment of the mA and/or kV according to patient size, radiation dose was kept as low as reasonably achievable to obtai n optimal diagnostic quality images. DICOM format image data is available electronically for review and comparison. FINDINGS: There is excellent visualization of the major intracranial arteries out to the second-order branch ve ssels. There is no evidence for aneurysm, vessel truncation or stenosis, and no evidence for vascula r malformation. Posterior communicating arteries. Anterior making artery not seen. Dominant right laurence tebral artery. CONCLUSION: 1. No large vessel stenosis, aneurysm or thrombosis. Electronically signed by: Shilo Live MD Board Certified Radiologist 02/14/2018 10:25 PM EST
[2018-02-14 22:28] LABS: Bilirubin,Urine Negative (Negative); Clarity,Urine Clear (Clear); Color,Urine Straw (Yellw/Straw); Glucose,Urine (UA) Negative (Negative); Leukocyte Esterase,Urine Negative (Negative); Nitrite,Urine Negative (Negative); Specific Gravity,Urine 1.009 (1.002-1.035)
--- NOTE | 2018-02-14 22:34 | CT ---
EXAM DATE: 02/14/2018 10:29 PM EST AGE/SEX: 52 years / Male INDICATIONS: STROKE ALERT. Left sided weakness. CLINICAL DATA: This is the patient's initial encounter. Patient reports that signs and symptoms have been present for 1 day and indicates a pain score of 0/10. MEDICAL/SURGICAL HISTORY: None. None. RADIATION DOSE: 28.18 CTDI (mGy) COMPARISON: No prior exams available for comparison. TECHNIQUE: Volumetric scanning was performed using a multirow detector CT scanner during bolus infus ion of 100 ml Omnipaque 350 (iohexol) nonionic water-soluble contrast as a cumulative dose for multi ple exams. The data was postprocessed with a variety of visualization algorithms including full-vol ume maximum intensity projection, multiplanar sliding thin-slab reformation, curved-planar reformatio n, and surface-rendering techniques. Using automated exposure control and adjustment of the mA and/o r kV according to patient size, radiation dose was kept as low as reasonably achievable to obtain opt imal diagnostic quality images. DICOM format image data is available electronically for review and c omparison. FINDINGS: Aortic Arch: There is a three-vessel origin of the great vessels from the aorta. No evidence of ost ial narrowing Right Carotid: The common carotid artery is intact. Mild atherosclerotic changes without significant stenosis of the internal carotid artery. The external carotid artery is intact. Left Carotid: The common carotid artery is intact. Mild atherosclerotic changes without significant stenosis of the internal carotid artery. The external carotid artery is intact. Vertebrals: The vertebral arteries have a symmetric diameter. No stenotic lesions are seen. Percent stenosis is calculated using the diameter of the stenotic region over the diameter of the nor mal distal internal carotid artery. CONCLUSION: 1. No significant carotid stenosis. Electronically signed by: Shilo Live MD Board Certified Radiologist 02/14/2018 10:32 PM EST
[2018-02-14 22:48] LABS: Anion Gap 9 meq/L (5-15); Blood Urea Nitrogen 11 mg/dL (7-18); Calcium 8.3 mg/dL (8.5-10.1); Carbon Dioxide 24.1 meq/L (21.0-32.0); Chloride 103 meq/L (98-107); Glomerular Filtration Rate 76 mL/min (>89); Glucose,Random 86 mg/dL (74-106); Potassium 4.2 meq/L (3.5-5.1); Sodium 136 meq/L (136-145)
[2018-02-14 22:52] LABS: Creatine Kinase 215 U/L (39-308)
[2018-02-14] MEDS ORDERED: Sodium Chlor 0.9% Inj 500 ML IV.SIG SCH (23:00)
[2018-02-14 23:05] LABS: Creatine Kinase MB 1.9 ng/mL (0.5-3.6)
--- NOTE | 2018-02-14 23:26 | P.HPIM ---
History of Present Illness Service: [facility] Primary Care Physician: No Primary Care Physician Chief Complaint: Left facial numbness History of Present Illness: 52-year-old male with a history of CAD status post stenting in December 2017, hypertension, and hyperlipidemia presented to the ED today as a stroke alert. Patient was brought in by EMS. Prior to coming in he states he was sitting at home drinking a glass of milk when he felt his left face go numb and have a left facial droop, he also felt numbness in his left upper extremity and became very dizzy. He did not have any other weakness in his right upper or bilateral lower extremities. No loss of conscious no headache, chest pain, shortness of breath or vomiting. He states he has been compliant with all his medications since being discharged. He stated he did have some similar symptoms yesterday with numbness to his face and arm but the had resolved over time. Inpatient Certification Inpatient Certification: I certify that the inpatient services were ordered in accordance with Medicare regulations governing the order. This includes certification that hospital inpatient services are reasonable and necessary and in the case of services not specified as inpatient-only under 42 CFR 419.22(n), that they are appropriately provided as inpatient services in accordance to with the 2-midnight benchmark under 43 CFR 412.3(e) Estimated Total Length of Stay (Days): 3 Plans for Post Hospital Care: Not yet determined Review of Systems Review of Systems: all other systems reviewed are negative [facility] Medical History Medical History CAD (coronary artery disease) (Acute) Hyperlipidemia (Acute) Gout (Acute) Hypertension (Acute) Surgical History Surgical History H/O heart artery stent (Acute) H/O knee surgery (Acute) Family History Family History Other Family history non-contributory Social History Social History Substance History: No History of Abuse Second Hand Smoke Exposure: No Smoking Status: Current every day smoker Tobacco Type: Cigarettes Packs Per Day: 1.5 Cigarettes Per Day: 30.0 How Often Do You Have a Drink Containing Alcohol: 4 or more times a week Recent Travel in [facility] within the Last 8 Weeks: No Recent Out of Country Travel within the Last 8 Weeks: No Immunization History Tetanus Immunization: <5 Years Medications and Allergies Allergies Allergy/AdvReac Type Severity Reaction Status Date / Time No Known Allergies Allergy nkda Uncoded 02/14/18 21:30 Home Medications Medication Instructions Recorded Confirmed Type No Known Home Medications 01/02/18 02/14/18 History Active Medications: Active Medications Aspirin (Aspirin) 325 mg PO DAILY [facility] Clopidogrel Bisulfate (Plavix) 75 mg PO DAILY [facility] Enoxaparin Sodium (Lovenox Inj) 80 mg SQ Q12H [facility] Sodium Chloride (Ns Inj) 500 mls @ 1,000 mls/hr IV.SIG BOLUS JULIA Stop: 02/14/18 23:29 Last Infusion: 02/14/18 22:32 Dose: Infused Sodium Chloride (Ns Flush) 2 ml IV.FLUSH PRN PRN PRN Reason: FLUSH AFTER USING IV ACCESS Sodium Chloride (Ns Flush) 2 ml IV.FLUSH BID JULIA Sodium Chloride (Ns Flush) 2 ml IV.FLUSH PRN PRN PRN Reason: FLUSH AFTER USING IV ACCESS Physical Exam Vital signs: Last Vital Signs Temp 98 F 02/14/18 21:33 Pulse 69 02/14/18 22:49 Resp 16 02/14/18 22:49 BP 157/70 H 02/14/18 22:49 Pulse Ox 98 02/14/18 22:49 Intake & Output 02/12/18 02/13/18 02/14/18 02/15/18 06:59 06:59 06:59 06:59 Intake Total 500 / 500 Output Total 500 / 500 Balance 0 / 0 Weight 85.3 g Narrative: GENERAL: Well-nourished patient laying in bed in no distress SKIN: Warm and dry. No open lesions EYES: Pupils equal and round. No scleral icterus. No injection or drainage. ENT: No nasal bleeding or discharge. Mucous membranes pink and moist. NECK: Trachea midline. No JVD. CARDIOVASCULAR: Regular rate and rhythm. RESPIRATORY: No accessory muscle use. Clear to auscultation. Breath sounds equal bilaterally. GASTROINTESTINAL: Abdomen soft, non-tender, nondistended. Hepatic and splenic margins not palpable. MUSCULOSKELETAL: Extremities without clubbing, cyanosis, or edema. No obvious deformities. NEUROLOGICAL: Awake and alert. Motor grossly within normal limits. Normal speech. 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 Slight numbness felt to left cheek. Results Labs CBC & Chem 7: 02/14/18 21:31 02/14/18 21:31 Imaging Impressions Chest X-Ray 02/14/18 21:32 CONCLUSION: No acute cardiopulmonary disease Head CT 02/14/18 21:32 CONCLUSION: 1. Lacunar infarct right caudate head likely old. 2. No acute intracranial abnormality. 3. Complete opacification left maxillary sinus. Report was called by [ [facility] to [facility] at 9:45pm CT CAD 02/14/18 21:49 CONCLUSION: Physiological brain perfusion parameters with RAPID analysis as above. The decision for consideration of therapy is multi factorial and multi disciplinary relying on subjective and objective clinical data. This data is not construed or intended to be the sole determinant of treatment eligibility. Head CTA 02/14/18 21:49 CONCLUSION: 1. No large vessel stenosis, aneurysm or thrombosis. Neck CTA 02/14/18 21:49 CONCLUSION: 1. No significant carotid stenosis. Caprini VTE Risk Assessment Caprini VTE Risk Assessment: Moderate/High Risk (score >= 2) Caprini Risk Assessment Model: Point Value = 1 Point Value = 2 Point Value = 3 Point Value = 5 Age 41-60 Minor surgery BMI > 25 kg/m2 Swollen legs Varicose veins or History of unexplained or recurrent spontaneous Oral contraceptives or hormone replacement Sepsis (< 1 month) Serious lung disease, including pneumonia (< 1 month) Abnormal pulmonary function Acute myocardial infarction Congestive heart failure (< 1 month) History of inflammatory bowel disease Medical patient at bed rest Age 61-74 Arthroscopic surgery Major open surgery (> 45 min) Laparoscopic surgery (> 45 min) Malignancy Confined to bed (> 72 hours) Immobilizing plaster cast Central venous access Age >= 75 History of VTE Family history of VTE Factor V Leiden Prothrombin [id number] Lupus anticoagulant Anticardiolipin antibodies Elevated serum homocysteine Heparin-induced thrombocytopenia Other congenital or acquired thrombophilia Stroke (< 1 month) Elective arthroplasty Hip, pelvis, or leg fracture Acute spinal cord injury (< 1 month) Prophylaxis Regimen: Total Risk Factor Score Risk Level Prophylaxis Regimen 0-1 Low Early ambulation 2 Moderate Order ONE of the following: *Sequential Compression Device (SCD) *Heparin 5000 units SQ BID 3-4 Higher Order ONE of the following medications: *Heparin 5000 units SQ TID *Enoxaparin/Lovenox 40 mg SQ daily (WT < 150 kg, CrCl > 30 mL/min) *Enoxaparin/Lovenox 30 mg SQ daily (WT < 150 kg, CrCl > 10-29 mL/min) *Enoxaparin/Lovenox 30 mg SQ BID (WT < 150 kg, CrCl > 30 mL/min) AND/OR *Sequential Compression Device (SCD) 5 or more Highest Order ONE of the following medications: *Heparin 5000 units SQ TID (Preferred with Epidurals) *Enoxaparin/Lovenox 40 mg SQ daily (WT < 150 kg, CrCl > 30 mL/min) *Enoxaparin/Lovenox 30 mg SQ daily (WT < 150 kg, CrCl > 10-29 mL/min) *Enoxaparin/Lovenox 30 mg SQ BID (WT < 150 kg, CrCl > 30 mL/min) AND *Sequential Compression Device (SCD) Assessment and Plan Plan 52-year-old male with a history of CAD status post stenting in December 2017, hypertension, and hyperlipidemia presented to the ED today as a stroke alert. Patient was brought in by EMS. CVA/TIA Head CT shows a olecranon infarct on the right today that is likely old, no acute intracranial abnormality Neck CTA reviewed and shows no significant stenosis Head CTA reviewed and shows no large vessel stenosis aneurysm or thrombus -Neurology consulted for evaluation -Head of bed flat for 12 hours -Allow for permissive hypertension -Aspirin and Plavix ordered -Therapeutic Lovenox ordered -PT/OT/ST, bedside swallow eval ordered -Patient's recent echocardiogram in December shows an EF with systolic function normal -Lipid profile ordered -Restart home atorvastatin -Neuro checks -Holter monitor ordered Hypertension, chronic -Resume home medications in 24 hours CAD, chronic -Resume home medications as above aspirin and Plavix -Cardiac diet if patient passes swallow eval DVT prophylaxis: SCDs, Lovenox
[2018-02-15 06:16] LABS: Chol/HDL Ratio 3.89 Ratio; HDL Cholesterol 31.3 mg/dL (40.0-60.0)
[2018-02-15 06:25] LABS: Calcium 7.8 mg/dL (8.5-10.1); Carbon Dioxide 28.6 meq/L (21.0-32.0)
[2018-02-15 06:37] LABS: Potassium 4.3 meq/L (3.5-5.1)
[2018-02-15 09:14] LABS: Hemoglobin A1c 6.3 % (4.3-6.0)
[2018-02-15] MEDS: Enoxaparin Inj 100 MG/ML Syringe SQ SCH ×2 (09:17→21:48)
[2018-02-15] MEDS: Aspirin 325 MG Tablet PO SCH (09:17)
--- NOTE | 2018-02-15 09:35 | P.PNIM ---
Subjective Interval history: Patient still has complaints of tingling at the left face, no motor deficits. No complaints of headache. No nausea or vomiting. She does have an upper respiratory tract infection. Physical Exam Vital signs: Last Vital Signs Temp 98.0 F 02/15/18 08:00 Pulse 62 02/15/18 08:15 Resp 21 02/15/18 08:00 BP 136/81 02/15/18 08:00 Pulse Ox 96 02/15/18 08:20 Intake & Output 02/13/18 02/14/18 02/15/18 02/16/18 06:59 06:59 06:59 06:59 Intake Total 500 / 500 Output Total 500 / 500 Balance 0 / 0 Weight 85.3 g Narrative: GENERAL: NAD, A&Ox3 HEAD: Normocephalic. NECK: Supple, trachea midline. No lymphadenopathy. EYES: No scleral icterus. No injection or drainage. CARDIOVASCULAR: Regular rate and rhythm without murmurs, gallops, or rubs. RESPIRATORY: Breath sounds equal bilaterally. No accessory muscle use. GASTROINTESTINAL: Abdomen soft, non-tender, nondistended. MUSCULOSKELETAL: No cyanosis, or edema. SKIN: Warm and dry. NEURO:, Subjective numbness of the left face with touch Results Labs CBC & Chem 7: 02/14/18 21:31 02/15/18 04:09 Imaging Imaging: Impressions Chest X-Ray 02/14/18 21:32 CONCLUSION: No acute cardiopulmonary disease Head CT 02/14/18 21:32 CONCLUSION: 1. Lacunar infarct right caudate head likely old. 2. No acute intracranial abnormality. 3. Complete opacification left maxillary sinus. Report was called by [ [facility] to [facility] at 9:45pm CT CAD 02/14/18 21:49 CONCLUSION: Physiological brain perfusion parameters with RAPID analysis as above. The decision for consideration of therapy is multi factorial and multi disciplinary relying on subjective and objective clinical data. This data is not construed or intended to be the sole determinant of treatment eligibility. Head CTA 02/14/18 21:49 CONCLUSION: 1. No large vessel stenosis, aneurysm or thrombosis. Neck CTA 02/14/18 21:49 CONCLUSION: 1. No significant carotid stenosis. Assessment and Plan Plan 52-year-old male admitted secondary to suspected TIA TIA Negative CTA of head and neck CT of brain shows evidence of old stroke, no evidence of acute stroke Neurology following Follow clinically Monitor neurologic status Continue neurochecks Continue aspirin and Plavix Hypertension chronic Permissive hypertension for now CAD Chronic Continue aspirin Continue Plavix Continue cardiac diet DVT prophylaxis SCDs Lovenox
--- NOTE | 2018-02-15 15:29 | ECG ---
Date Performed: 02/14/2018 Time Performed: 21:32:37 PTAGE: 52 years EKG: Sinus rhythm POSSIBLE RIGHT VENTRICULAR CONDUCTION DELAY BORDERLINE ECG Compared to PREVIOUS TRACING , the marked anterolateral T-wave changes have resolved. Reversal of yanick cardial ischemia should be excluded clinically. PREVIOUS TRACIN01/04/2018 04.02 DOCTOR: Patsy Botello Interpretating Date/Time 02/15/2018 15:28:58
--- NOTE | 2018-02-15 17:44 | MB ---
cc: Luis Antonio Rojas MD, PhD DATE: 02/15/2018 REASON FOR CONSULTATION: Stroke alert. HISTORY OF PRESENT ILLNESS: This is a 52-year-old man who has a history of coronary artery disease with recent stenting, as well as hypertension. He takes Plavix as well as aspirin. He came to the ER by evac as a stroke alert after he developed left-sided numbness, paresthesias and weakness about an hour prior to arrival. He had no other neurological symptoms at the time. His symptoms were improving in the ER with some mild left facial paresthesias being the only remaining symptom. NIH stroke scale was 1. He had an evaluation with CT scan of the brain, which showed an old lacunar infarction in the right caudate. No hemorrhage was identified. No acute change. He had a CTA of the head, which was normal. He had a CTA of the neck, with no significant carotid stenosis identified. A CT perfusion study was normal. Because of the resolution of symptoms, the patient was not a TPA candidate as discussed by Dr. Cuellar. He had one other episode earlier this morning, he said of recurrent numbness involving the left face, left arm, which resolved, but no other episodes since that time. He states he takes Plavix and aspirin. He has not missed any doses. PAST MEDICAL HISTORY: History of coronary artery disease with stenting, hyperlipidemia, hypertension, gout, knee surgery. SOCIAL HISTORY: He does smoke, drinks alcohol 4 or more times a week. CURRENT MEDICATIONS: 1. Albuterol nebulizer. 2. Aspirin 325 mg daily. 3. Plavix 75 mg daily. 4. Lovenox 80 mg subcutaneously b.i.d. LABORATORY DATA: White count is 6400, hemoglobin 14.1, hematocrit is 39.8%, platelet count 306,000. PT ____, INR 1, aPTT 26.3. Sodium is 138, potassium is 4.2, chloride 101. BUN is 9, creatinine 1.02, GFR 76. LDL cannot be determined due to the elevated triglycerides of 959, cholesterol 122. His telemetry has been sinus rhythm. IMPRESSION: Transient ischemic attack, right hemisphere, which did show some recurrence. I agree with anticoagulation with full dose Lovenox. I would recommend consideration of long-term anticoagulation with Eliquis given the fact that the UTI did occur while he was on Plavix and aspirin. Recommend further evaluation with hypercoagulable workup. I also recommend consideration of AZUL to rule out a patent foramen ovale. Luis Antonio Rojas MD, PhD JULIA/shantanu/mc , 04:02 PM , 04:09 PM
[2018-02-15] MEDS ORDERED: Gelatin Size 100 Topical Foam TOPICAL ONE (17:54)
[2018-02-15] MEDS ORDERED: Silver Nitrate/Potassium Nitrate Applicator Sticks TOPICAL ONE (22:59)
[2018-02-16 06:04] LABS: Baso # (Auto) 0.1 th/mm3 (0.0-0.2); Baso % (Auto) 0.7 % (0.0-2.0); Eos # (Auto) 0.3 th/mm3 (0.0-0.4); Eos % (Auto) 4.8 % (0.0-4.0); Hematocrit 42.3 % (39.0-51.0); Hemoglobin 14.5 gm/dL (13.0-17.0); Lymph % (Auto) 29.2 % (9.0-44.0); Mean Corpuscular HGB Conc 34.2 % (32.0-36.0); Mean Corpuscular Hemoglobin 30.1 pg (27.0-34.0); Mean Corpuscular Volume 88.1 fL (80.0-100.0); Mean Platelet Volume 7.3 fL (7.0-11.0); Mono # (Auto) 0.5 th/mm3 (0.0-0.9); Mono % (Auto) 6.9 % (0.0-8.0); Neut % (Auto) 58.4 % (16.0-70.0); Platelet Count 337 th/mm3 (150-450); Red Cell Distribution Width 13.8 % (11.6-17.2); White Blood Count 6.8 th/mm3 (4.0-11.0)
--- NOTE | 2018-02-16 09:39 | P.PNIM ---
Subjective Interval history: No complaints of neurologic deficits today. No paresthesias of the face or body. Hypercoagulability workup in process. Patient will be transitioned to Eliquis as recommended by neurology. AZUL pending. Physical Exam Vital signs: Last Vital Signs Temp 98 F 02/16/18 08:00 Pulse 69 02/16/18 08:00 Resp 20 02/16/18 08:00 BP 158/95 H 02/16/18 08:00 Pulse Ox 95 02/16/18 08:17 Intake & Output 02/14/18 02/15/18 02/16/18 02/17/18 06:59 06:59 06:59 06:59 Intake Total 500 / 500 122 / 122 Output Total 500 / 500 Balance 0 / 0 122 / 122 Weight 85.3 g Narrative: GENERAL: NAD, A&Ox3 HEAD: Normocephalic. NECK: Supple, trachea midline. No lymphadenopathy. EYES: No scleral icterus. No injection or drainage. CARDIOVASCULAR: Regular rate and rhythm without murmurs, gallops, or rubs. RESPIRATORY: Breath sounds equal bilaterally. No accessory muscle use. GASTROINTESTINAL: Abdomen soft, non-tender, nondistended. MUSCULOSKELETAL: No cyanosis, or edema. SKIN: Warm and dry. NEURO:, Subjective numbness of the left face with touch Results Labs CBC & Chem 7: 02/16/18 05:34 02/15/18 04:09 Assessment and Plan Plan 52-year-old male admitted secondary to suspected TIA CVA Negative CTA of head and neck CT of brain shows evidence of old stroke, possible evidence of acute stroke Neurology following Follow clinically Monitor neurologic status Continue neurochecks Continue Eliquis Hypercoagulability workup AZUL Hypertension chronic Permissive hypertension for now CAD Chronic Continue aspirin Continue Plavix Continue cardiac diet DVT prophylaxis SCDs Lovenox
[2018-02-16 10:48] LABS: RPR Screen For Reflex FTA Nonreactive (Nonreactive)
[2018-02-16] MEDS: Enoxaparin Inj 100 MG/ML Syringe SQ SCH (11:45)
[2018-02-16] MEDS: Aspirin 325 MG Tablet PO SCH (11:46)
--- NOTE | 2018-02-16 17:51 | P.CONREH ---
History of Present Illness Primary Care Provider: No Primary Care Physician Chief Complaint: Left facial numbness Review of Systems Constitutional: Denies headache(s) Eyes: Denies double vision Ears, Nose, Mouth, and Throat: Reports ringing in the ears (Right) Cardiovascular: Denies chest pain Respiratory: Reports cough, Reports shortness of breath with activity Gastrointestinal: Denies abdominal pain, Denies constipation Genitourinary: Denies urinary incontinence Musculoskeletal: Denies muscle weakness Skin/Breast: Denies rash, Denies sores Neurologic: Denies lack of coordination, Denies tingling/numbness/burning sensations Psychiatric: Denies confusion Hematologic/Lymphatic: Denies easy bruising Allergic/Immunologic: Denies lip swelling, Denies throat swelling PMFSH - History History Provided By: Patient - Medical History Medical History: Medical History (Last Reviewed 02/16/18 @ 08:08 by Salma Bustillo Animal Shelter Supervisor, EQUITY RESEARCH ANALYST) CAD (coronary artery disease) Hyperlipidemia Gout Hypertension - Surgical History Surgical History: Surgical History (Last Reviewed 02/16/18 @ 08:03 by Monique Group) H/O heart artery stent H/O knee surgery - Family History Family History: Family History (Last Reviewed 02/16/18 @ 08:03 by Monique Group) Other Family history non-contributory - Tobacco History Second Hand Smoke Exposure: No Tobacco Use In Past 30 Days: Yes Smoking Status: Current every day smoker Tobacco Type: Cigarettes Packs Per Day: 1.5 Cigarettes Per Day: 30.0 - Alcohol History How Often Do You Have a Drink Containing Alcohol: 4 or more times a week - Substance Use History Substance History: No History of Abuse - Travel History Recent Travel in the [place] Within the Last 8 Weeks: No Recent Travel Out of the Country Within the Last 8 Weeks: No - Immunization History Tetanus Immunization: <5 Years Medications and Allergies Active Medications: Active Medications Albuterol (Albuterol Neb (Prn)) 2.5 mg NEB Q4HR NEB PRN PRN Reason: SOB or Wheezing Apixaban (Eliquis) 5 mg PO BID [facility]UL[facility] Aspirin (Ecotrin) 81 mg PO DAILY [facility] Sodium Chloride (Ns Flush) 2 ml IV.FLUSH BID JULIA Last Admin: 02/16/18 11:27 Dose: 2 ml Sodium Chloride (Ns Flush) 2 ml IV.FLUSH PRN PRN PRN Reason: FLUSH AFTER USING IV ACCESS Allergies Allergy/AdvReac Type Severity Reaction Status Date / Time No Known Allergies Allergy nkda Uncoded 02/14/18 21:30 Home Medications Medication Instructions Recorded Confirmed Type No Known Home Medications 01/02/18 02/14/18 History Exam - Physical Examination Vital Signs / I&O: Vital Signs 02/15/18 18:00 02/15/18 19:00 02/15/18 20:00 Temperature 97.9 F Pulse Rate 70 Respiratory Rate 18 Blood Pressure 155/83 H Pulse Oximetry 98 96 97 02/15/18 20:57 02/15/18 21:00 02/15/18 21:47 Temperature Pulse Rate Respiratory Rate Blood Pressure 155/83 H Pulse Oximetry 97 97 96 02/16/18 00:00 02/16/18 00:18 02/16/18 00:19 Temperature 98.4 F Pulse Rate 68 Respiratory Rate 18 Blood Pressure 147/86 H 147/86 H 134/75 Pulse Oximetry 02/16/18 00:20 02/16/18 00:57 02/16/18 01:00 Temperature Pulse Rate Respiratory Rate Blood Pressure 159/83 H Pulse Oximetry 97 96 97 02/16/18 02:00 02/16/18 03:00 02/16/18 03:29 Temperature Pulse Rate Respiratory Rate Blood Pressure 154/88 H Pulse Oximetry 96 94 L 95 02/16/18 04:00 02/16/18 04:57 02/16/18 05:00 Temperature 97.6 F Pulse Rate 62 Respiratory Rate 18 Blood Pressure 154/88 H 135/82 Pulse Oximetry 95 94 L 97 02/16/18 06:00 02/16/18 07:00 02/16/18 08:00 Temperature 98 F Pulse Rate 69 Respiratory Rate 20 Blood Pressure 158/95 H Pulse Oximetry 96 96 95 02/16/18 08:01 02/16/18 08:17 02/16/18 08:57 Temperature Pulse Rate Respiratory Rate Blood Pressure 154/90 H 158/95 H Pulse Oximetry 96 95 96 02/16/18 09:00 02/16/18 10:00 02/16/18 10:17 Temperature Pulse Rate Respiratory Rate Blood Pressure Pulse Oximetry 95 97 97 02/16/18 10:20 02/16/18 10:21 02/16/18 10:23 Temperature Pulse Rate Respiratory Rate Blood Pressure 155/99 H 148/97 H 152/103 H Pulse Oximetry 01/04/19 10:25 02/16/18 10:28 02/16/18 10:44 Temperature Pulse Rate Respiratory Rate Blood Pressure 143/92 H 135/89 143/105 H Pulse Oximetry 96 02/16/18 10:52 02/16/18 11:00 02/16/18 12:00 Temperature Pulse Rate Respiratory Rate Blood Pressure 141/95 H Pulse Oximetry 96 95 95 02/16/18 16:00 Temperature 98 F Pulse Rate 62 Respiratory Rate Blood Pressure 145/98 H Pulse Oximetry 99 Intake & Output 02/15/18 02/16/18 02/16/18 18:59 06:59 18:59 Intake Total 122 / 122 Balance 122 / 122 Intake: Oral 122 / 122 Other: # Voids 4 Date of Last Bowel Movement 02/15/18 02/15/18 02/15/18 # Bowel Movements 1 Intake & Output 02/14/18 02/15/18 02/16/18 02/17/18 06:59 06:59 06:59 06:59 Intake Total 500 / 500 122 / 122 Output Total 500 / 500 Balance 0 / 0 122 / 122 Weight 85.3 g General: No acute distress Respiratory: Lungs CTA, Non-labored respirations, BS equal Gastrointestinal: Positive bowel sounds, Non-distended, Non-tender Date of Last Bowel Movement: 02/15/18 Cardiovascular: Normal rate, No edema, Regular rhythm Skin: No rash Musculoskeletal: ROM (Within functional limits) Psychiatric: Cooperative, Appropriate mood & affect - Neurologic Orientation: oriented to: Self, Place, Time, Situation Neurologic: Cranial nerves (intact 2-12 grossly), Speech (Clear) Motor: Right Upper Extremity (5/5), Left Upper Extremity (5/5), Right Lower Extremity (5/5), Left Lower Extremity (5/5) Sensory: Intact to light touch bilateral UE and LE DTRs: Normal Babinski: Negative Clonus: Negative Results - Labs CBC & Chem 7: 02/16/18 05:34 02/15/18 04:09 Labs: Laboratory Results - last 24 hr 02/16/18 02/16/18 05:34 05:34 WBC 6.8 RBC 4.80 Hgb 14.5 Hct 42.3 MCV 88.1 MCH 30.1 MCHC 34.2 RDW 13.8 Plt Count 337 MPV 7.3 Neut % (Auto) 58.4 Lymph % (Auto) 29.2 [place] % (Auto) 6.9 Eos % (Auto) 4.8 H Baso % (Auto) 0.7 Neut # (Auto) 4.0 Lymph # (Auto) 2.0 [place] # (Auto) 0.5 Eos # (Auto) 0.3 Baso # (Auto) 0.1 WBC Differential . Differential Comment Auto diff final RPR Nonreactive Assessment and Plan (1) Transient cerebral ischemia Status: Acute Code(s): G45.9 - Transient cerebral ischemic attack, unspecified - Plan Assessment 1. Right hemipshere TIA 2. CAD S/P stent 3. HTN 4. History of tobacco abuse Recommendations: 1. Continue to mobilize with PT. Patient now SBA for transfers and gait 100 feet no device. Continue to mobilize to prevent deconditioning 2. Continue pulmonary toilet 3. No additional rehab needs identified and no rehab needs for discharge 4. Will follow while hospitalized. Thank you for this consult.
--- NOTE | 2018-02-16 18:47 | P.PNNEU ---
Subjective Subjective Comments: No new sx. Numbness resolved. Now on eliquis Active Medications: Active Medications Albuterol (Albuterol Neb (Prn)) 2.5 mg NEB Q4HR NEB PRN PRN Reason: SOB or Wheezing Apixaban (Eliquis) 5 mg PO BID [facility] Aspirin (Ecotrin) 81 mg PO DAILY [facility] Sodium Chloride (Ns Flush) 2 ml IV.FLUSH BID [facility] Last Admin: 02/16/18 11:27 Dose: 2 ml Sodium Chloride (Ns Flush) 2 ml IV.FLUSH PRN PRN PRN Reason: FLUSH AFTER USING IV ACCESS Allergies/Adverse Reactions: Allergies Allergy/AdvReac Type Severity Reaction Status Date / Time No Known Allergies Allergy nkda Uncoded 02/14/18 21:30 Physical Exam Vital signs: Vital Signs 02/15/18 19:00 02/15/18 20:00 02/15/18 20:57 Temperature 97.9 F Pulse Rate 70 Respiratory Rate 18 Blood Pressure 155/83 H 155/83 H Pulse Oximetry 96 97 97 02/15/18 21:00 02/15/18 21:47 02/16/18 00:00 Temperature 98.4 F Pulse Rate 68 Respiratory Rate 18 Blood Pressure 147/86 H Pulse Oximetry 97 96 02/16/18 00:18 02/16/18 00:19 02/16/18 00:20 Temperature Pulse Rate Respiratory Rate Blood Pressure 147/86 H 134/75 Pulse Oximetry 97 02/16/18 00:57 02/16/18 01:00 02/16/18 02:00 Temperature Pulse Rate Respiratory Rate Blood Pressure 159/83 H Pulse Oximetry 96 97 96 02/16/18 03:00 02/16/18 03:29 02/16/18 04:00 Temperature 97.6 F Pulse Rate 62 Respiratory Rate 18 Blood Pressure 154/88 H 154/88 H Pulse Oximetry 94 L 95 95 02/16/18 04:57 02/16/18 05:00 02/16/18 06:00 Temperature Pulse Rate Respiratory Rate Blood Pressure 135/82 Pulse Oximetry 94 L 97 96 02/16/18 07:00 02/16/18 08:00 02/16/18 08:01 Temperature 98 F Pulse Rate 69 Respiratory Rate 20 Blood Pressure 158/95 H 154/90 H Pulse Oximetry 96 95 96 02/16/18 08:17 02/16/18 08:57 02/16/18 09:00 Temperature Pulse Rate Respiratory Rate Blood Pressure 158/95 H Pulse Oximetry 95 96 95 02/16/18 10:00 02/16/18 10:17 02/16/18 10:20 Temperature Pulse Rate Respiratory Rate Blood Pressure 155/99 H Pulse Oximetry 97 97 02/16/18 10:21 02/16/18 10:23 02/16/18 10:25 Temperature Pulse Rate Respiratory Rate Blood Pressure 148/97 H 152/103 H 143/92 H Pulse Oximetry 02/16/18 10:28 02/16/18 10:44 02/16/18 10:52 Temperature Pulse Rate Respiratory Rate Blood Pressure 135/89 143/105 H 141/95 H Pulse Oximetry 96 96 02/16/18 11:00 02/16/18 12:00 02/16/18 16:00 Temperature 98 F Pulse Rate 62 Respiratory Rate Blood Pressure 145/98 H Pulse Oximetry 95 95 99 Intake & Output 02/15/18 02/16/18 02/16/18 18:59 06:59 18:59 Intake Total 122 / 122 Balance 122 / 122 Intake: Oral 122 / 122 Other: # Voids 4 Date of Last Bowel Movement 02/15/18 02/15/18 02/15/18 # Bowel Movements 1 - Routine Neurological Exam alert, speech normal CN intact MOTOR 5/5 BUE and BLE Objective Laboratory Results - last 24 hr 02/16/18 02/16/18 05:34 05:34 WBC 6.8 RBC 4.80 Hgb 14.5 Hct 42.3 MCV 88.1 MCH 30.1 MCHC 34.2 RDW 13.8 Plt Count 337 MPV 7.3 Neut % (Auto) 58.4 Lymph % (Auto) 29.2 Luce % (Auto) 6.9 Eos % (Auto) 4.8 H Baso % (Auto) 0.7 Neut # (Auto) 4.0 Lymph # (Auto) 2.0 Luce # (Auto) 0.5 Eos # (Auto) 0.3 Baso # (Auto) 0.1 WBC Differential . Differential Comment Auto diff final RPR Nonreactive Review/Management - Review/Management Plan: agree with pamela AZUL f/u hypercoag work up MRI brain
--- NOTE | 2018-02-16 19:35 | MB ---
cc: Devin Hoffman MD DATE: 02/16/2018 REASON FOR CONSULTATION: Transesophageal echocardiography. HISTORY OF PRESENT ILLNESS: The patient is a 52-year-old white male with a history of hypertension, gout, coronary artery disease, status post stent of the third obtuse marginal by Dr. Kemal Mckenna on 01/03/2018, and hyperlipidemia, who presented to the hospital with left-sided weakness. He is now referred for transesophageal echocardiography. The patient denies recent chest pain, change in chronic mild dyspnea on exertion, dizziness, syncope, near syncope. Infrequently, he experiences fleeting fluttering palpitations. He also denies pedal edema, paroxysmal nocturnal dyspnea. PAST MEDICAL HISTORY: 1. Hypertension. 2. Gout. 3. Coronary artery disease, status post bare metal stenting of the third obtuse marginal by Dr. Kemal Mckenna on 01/03/2018. 4. Hyperlipidemia. PAST SURGICAL HISTORY: Left knee arthroscopy due to gout. CARDIAC MEDICATIONS AT HOME: 1. Ramipril 2.5 mg daily. 2. Clopidogrel 75 mg daily. 3. Carvedilol 3.125 mg b.i.d. 4. Atorvastatin 20 mg daily. 5. Aspirin 81 mg daily. ALLERGIES: NO KNOWN DRUG ALLERGIES. FAMILY HISTORY: There is no significant family history of early myocardial infarction. SOCIAL HISTORY: The patient smokes about a pack of cigarettes per day. He drinks alcohol occasionally. REVIEW OF SYSTEMS: As in the history of present illness. Otherwise, negative or noncontributory. He also currently denies headache, abdominal pain, melena, dyspepsia, bright red blood per rectum, although he has noticed blood in the stools in the past that he had felt was due to hemorrhoids. PHYSICAL EXAMINATION: VITAL SIGNS: His blood pressure 145/98 with a pulse of 62, respirations 15. GENERAL: He is a well-developed, well-nourished white male, in no acute distress. NECK: Jugular venous pressure is normal. Carotid pulses are 2+ bilaterally and without bruits. CHEST: Clear lungs [place]. CARDIAC: He has a regular rhythm and rate without S3, S4, or murmur. ABDOMEN: He has a soft, nontender abdomen. Bowel sounds are present. There is no definite hepatosplenomegaly. EXTREMITIES: No clubbing, cyanosis, or edema. LABORATORY DATA: EKG from 02/14/2018 at 9:32 p.m. shows sinus rhythm, right bundle branch block. Chest x-ray shows no acute disease. IMPRESSION: This is a 52-year-old white male with a history of hypertension, hyperlipidemia, coronary artery disease, gout, now admitted with acute neurological symptoms, possibly transient ischemic attack. He has been referred for transesophageal echocardiography. I would agree with the need for this procedure. The nature of this procedure and potential risks have been outlined to the patient, who agrees to proceed. RECOMMENDATIONS: 1. Transesophageal echocardiography this coming Monday. I did attempt to schedule it today, but the patient had eaten breakfast already. 2. We will follow up as needed over the weekend. 3. Since he did have a bare-metal stent in December, he does not need to be on clopidogrel any longer. Would agree with continuing his daily aspirin and the apixaban started here in the hospital. MD SHARMILA Prince/joanna , 06:59 PM , 07:06 PM ERMA
[2018-02-17] MEDS ORDERED: Gadobutrol PF 10 MMOL/10 ML Vial (for RAD) IV.SIG ONE (07:50)
--- NOTE | 2018-02-17 08:08 | MR ---
EXAM DATE: 02/17/2018 7:53 AM EST AGE/SEX: 52 years / Male INDICATIONS: TIA. Left facial droop, resolved. CLINICAL DATA: This is the patient's initial encounter. Patient reports that signs and symptoms have been present for 2 days and indicates a pain score of 0/10. MEDICAL/SURGICAL HISTORY: Myocardial infarction. Hypertension. Cardiovascular disease. Florez ry artery stent. Total knee replacement, left. [place] [facility] [place]. . TECHNIQUE: Multiplanar, multisequence examination of the brain was performed without and with 8cc ml Gadavist (gadobutrol) contrast as a single exam dose. FINDINGS: There is no evidence for intracranial hemorrhage, mass effect, mass lesions, edema, or extra-axial fl uid collections. There are no signs of acute infarction for technique. The diffusion portion is unr emarkable. There is complete opacification of the left maxillary sinus . Slight periventricular white matter changes are seen nonspecific mostly consistent with chronic small vessel ischemic changes wit hout old lacunar infarction anterior basal ganglia on the right and left basal ganglia posteriorly. T he postcontrast portion is unremarkable . CONCLUSION: Chronic small vessel ischemic and atrophic changes. Electronically signed by: Emy Jacobson MD Board Certified Radiologist 02/17/2018 8:06 AM EST
--- NOTE | 2018-02-17 17:04 | P.PNIM ---
Subjective Interval history: 52 yo m admitted with L uex paesthesia, suspected TIA, mri brain no acute process, hes been started on eliquis, and will go for AZUL on monday pt seen and examined, doing better, states numbness is gone, denies sob, no delcid, is co cough and sinus congestion states on going since admit w Physical Exam Vital signs: Last Vital Signs Temp 97.9 F 02/17/18 12:00 Pulse 80 02/17/18 12:00 Resp 20 02/17/18 12:00 BP 140/85 02/17/18 12:00 Pulse Ox 96 02/17/18 12:00 Intake & Output 02/15/18 02/16/18 02/17/18 02/18/18 06:59 06:59 06:59 06:59 Intake Total 500 / 500 122 / 122 Output Total 500 / 500 Balance 0 / 0 122 / 122 Weight 85.3 g 82.6 kg wdwn 52 yo w m aaox3 nad heart s1s2 reg lungs coarse rhonchi wheeze left lung abd soft nondt pos bs ext no edema, clubbing cyanosis Results Labs CBC & Chem 7: 02/16/18 05:34 02/15/18 04:09 Imaging Imaging: Impressions Head MRI 02/17/18 00:00 CONCLUSION: Chronic small vessel ischemic and atrophic changes. Assessment and Plan (1) Transient cerebral ischemia: Code(s): G45.9 - Transient cerebral ischemic attack, unspecified Status: Acute Plan L PARAESTHESIA and TIA resolved - hypercoag workup and AZUL in progress- cont asa and eliquis, self pay, will get one month of it then fu at [facility] ( needs apptmnt) for ongoing ac if recommended. 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 BRONCHITIS w SINUSITIS w bronchospasm/copd exac - rocephin, azithromycin, symptomatic tx. fu cxr for abn bs on cxr r/o developing pna, dvt prophylaxis -eliquis dispo - home after AZUL if stable Progress Note: Quality VTE Deep Vein Thrombosis/Pulmonary Embolism Present on Admission: No _ (1) Transient cerebral ischemia Qualifiers: Transient cerebral ischemia type:
[2018-02-17] MEDS ORDERED: Azithromycin Inj 500 MG in Sodium Chlor 0.9% Inj 250 ML IV.SIG ONE (17:27)
--- NOTE | 2018-02-17 18:14 | XR ---
EXAM DATE: 02/17/2018 6:11 PM EST AGE/SEX: 52 years / Male INDICATIONS: . Cough CLINICAL DATA: This is the patient's initial encounter. Patient reports that signs and symptoms have been present for 1 day and indicates a pain score of 0/10. MEDICAL/SURGICAL HISTORY: . Myocardial infarction. Hypertension. Cardiovascular disease. . Co ronary artery stent. Total knee replacement, left. [place] [facility] [place]. . FINDINGS: AP and lateral views of the chest. The lungs are clear. Cardiomediastinal silhouette withi n normal limits. No evidence of pleural effusion or pneumothorax. CONCLUSION: No acute cardiopulmonary disease identified. Electronically signed by: Derek Zuniga MD Board Certified Radiologist 02/17/2018 6:13 PM EST
[2018-02-17] MEDS: predniSONE 10 MG Tablet PO SCH (18:34)
[2018-02-17] MEDS: guaiFENesin/Dextromethorphan 200 MG/20 MG 10 ML UDC PO SCH ×2 (18:34→23:39)
[2018-02-17] MEDS: Tiotropium Bromide 18 MCG/ACT Inhaler INH SCH (18:35)
[2018-02-18] MEDS: guaiFENesin/Dextromethorphan 200 MG/20 MG 10 ML UDC PO SCH ×4 (05:04→23:00)
[2018-02-18] MEDS: Azithromycin 250 MG Tablet PO SCH (09:25)
[2018-02-18] MEDS: Loratadine 10 MG Tablet PO SCH (09:25)
[2018-02-18] MEDS: predniSONE 10 MG Tablet PO SCH (09:25)
[2018-02-18] MEDS: Tiotropium Bromide 18 MCG/ACT Inhaler INH SCH (09:26)
--- NOTE | 2018-02-18 18:54 | P.PNIM ---
Subjective Interval history: 52 yo m admitted with L uex paesthesia, suspected TIA, mri brain no acute process, hes been started on eliquis, and will go for AZUL on monday pt seen and examined, questions answered re his disease process, no events overnight, no delcid, no numbness Physical Exam Vital signs: Last Vital Signs Temp 98.0 F 02/18/18 08:20 Pulse 83 02/18/18 18:11 Resp 20 02/18/18 08:20 BP 138/83 02/18/18 18:11 Pulse Ox 95 02/18/18 09:33 Intake & Output 02/16/18 02/17/18 02/18/18 02/19/18 06:59 06:59 06:59 06:59 Intake Total 122 / 122 3071 / 3071 2099 Balance 122 / 122 3070 / 1 2099 Weight 82.6 kg 83.6 kg wdwn 52yo w m aaox3 nad heart s1s2 reg lungs clear no wrr abd soft nondt pos bs ext no edema no cald tenderness Results Labs CBC & Chem 7: 02/16/18 05:34 02/15/18 04:09 Assessment and Plan (1) Transient cerebral ischemia: Code(s): G45.9 - Transient cerebral ischemic attack, unspecified Status: Acute Plan L PARAESTHESIA and TIA resolved - hypercoag workup and AZUL in progress- cont asa and eliquis, self pay, will get one month of it then fu at [facility] ( needs apptmnt) for ongoing ac if recommended. 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 BRONCHITIS w SINUSITIS w bronchospasm/copd exac - rocephin, azithromycin, symptomatic tx. fu cxr for abn bs on cxr r/o developing pna, dvt prophylaxis -eliquis dispo - home after AZUL if stable Progress Note: Quality VTE Deep Vein Thrombosis/Pulmonary Embolism Present on Admission: No _ (1) Transient cerebral ischemia Qualifiers: Transient cerebral ischemia type:
[2018-02-19] MEDS ORDERED: Sodium Chlor 0.9% Inj 500 ML IV.CONT ONE (04:45)
[2018-02-19] MEDS ORDERED: Chlorhexidine Gluconate 2% 1 Pack (2 Cloths) TOPICAL ONE (04:45)
[2018-02-19] MEDS: guaiFENesin/Dextromethorphan 200 MG/20 MG 10 ML UDC PO SCH ×2 (05:01→13:42)
[2018-02-19] MEDS: Loratadine 10 MG Tablet PO SCH (08:00)
[2018-02-19] MEDS: Azithromycin 250 MG Tablet PO SCH (08:00)
[2018-02-19] MEDS: predniSONE 10 MG Tablet PO SCH (08:00)
[2018-02-19] MEDS: Tiotropium Bromide 18 MCG/ACT Inhaler INH SCH (08:03)
[2018-02-19 08:19] VITALS: BP 135/86; PULSE 64; RESP 20; TEMP 98.3
[2018-02-19 09:40] VITALS: O2SAT 98
[2018-02-19 09:50] LABS: Dil Russell Viper Venom Conf ( ND (NEGATIVE); Dil Russell Viper Venom Time M ND (CORRECTED); Lupus Anticoagulant PTT Screen 34 seconds (< OR = 40)
--- NOTE | 2018-02-19 12:25 | P.PNCA ---
Subjective Interval history: Feels "good". No CP, dyspnea, dizziness, palpitations. Medications and Allergies Active Medications: Active Medications Albuterol (Albuterol Neb (Prn)) 2.5 mg NEB Q4HR NEB PRN PRN Reason: SOB or Wheezing Albuterol (Duoneb Neb (Prn)) 1 ampul NEB Q6HR NEB PRN PRN Reason: SHORTNESS OF BREATH/WHEEZING Apixaban (Eliquis) 5 mg PO BID [facility] Last Admin: 02/19/18 08:02 Dose: Not Given Aspirin (Ecotrin) 81 mg PO DAILY [facility] Last Admin: 02/19/18 08:02 Dose: Not Given Azithromycin (Zithromax) 500 mg PO DAILY [facility] Last Admin: 02/19/18 08:00 Dose: 500 mg Guaifenesin/Dextromethorphan (Robitussin Dm Liq) 10 ml PO Q6H [facility] Last Admin: 02/19/18 05:01 Dose: 10 ml Ceftriaxone Sodium 1,000 mg/ (Sodium Chloride) 100 mls @ 200 mls/hr IV.SIG Q24H [facility] Last Infusion: 02/18/18 18:31 Dose: Infused Lactated Ringer's (Lr 1000 Ml Inj) 1,000 mls @ 30 mls/hr IV.CONT .Q24H ONE Stop: 02/20/18 04:44 Sodium Chloride (Ns Inj) 500 mls @ 30 mls/hr IV.CONT .[id number] ONE Stop: 02/19/18 21:24 Loratadine (Claritin) 10 mg PO DAILY [facility] Last Admin: 02/19/18 08:00 Dose: 10 mg Prednisone (Deltasone) 30 mg PO DAILY [facility] Last Admin: 02/19/18 08:00 Dose: 30 mg Sodium Chloride (Ns Flush) 2 ml IV.FLUSH BID [facility] Last Admin: 02/19/18 08:04 Dose: 2 ml Sodium Chloride (Ns Flush) 2 ml IV.FLUSH PRN PRN PRN Reason: FLUSH AFTER USING IV ACCESS Tiotropium [place] (Spiriva 18 Mcg Inh) 18 mcg INH DAILY [facility] Last Admin: 02/19/18 08:03 Dose: 18 mcg Allergies Allergy/AdvReac Type Severity Reaction Status Date / Time No Known Allergies Allergy nkda Uncoded 02/14/18 21:30 Home Medications Medication Instructions Recorded Confirmed Type No Known Home Medications 11/20/18 01/02/19 History Physical Exam Vital signs: Vital Signs 02/18/18 18:11 02/18/18 20:00 02/19/18 00:00 Temperature 97.4 F L 97.4 F L Pulse Rate 83 75 66 Respiratory Rate 18 18 Blood Pressure 138/83 139/87 131/79 Pulse Oximetry 98 96 02/19/18 04:00 02/19/18 08:10 02/19/18 09:39 Temperature 97.7 F 98.3 F Pulse Rate 63 64 Respiratory Rate 18 20 Blood Pressure 120/66 135/86 Pulse Oximetry 96 96 98 Intake & Output 02/18/18 02/19/18 02/19/18 18:59 06:59 18:59 Intake Total 20992 / 662 Balance 20992 Weight 83.9 kg Intake: IV 100 / 100 Rocephin Inj 1,000 MG In NS Inj 100 / 100 100 ML @ 200 mls/hr IV.SIG Q24H [facility] Rx#:[id number] Oral 1999 Other: # Voids 3 1 Date of Last Bowel Movement 02/17/18 02/18/18 02/19/18 # Bowel Movements 1 1 - Constitutional no acute distress - Routine Neck Exam Absent: JVD - Routine Respiratory Exam Present: CTA bilaterally - Routine Cardiovascular Exam Present: RRR, S1, S2. Absent: murmur, gallop - Routine Abdominal Exam Present: soft, normoactive bowel sounds. Absent: tenderness, organomegaly - Routine Extremities Exam Absent: cyanosis, clubbing, edema Results 02/16/18 05:34 02/15/18 04:09 Intake and Output 02/18/18 02/19/18 02/19/18 22:59 06:59 14:59 Intake Total 20992 / 662 Balance 20992 Intake: IV 100 / 100 Rocephin Inj 1,000 MG In NS Inj 100 / 100 100 ML @ 200 mls/hr IV.SIG Q24H [facility] Rx#:[id number] Oral 1999 Other: # Voids 3 1 Date of Last Bowel Movement 02/18/18 02/18/18 02/19/18 # Bowel Movements 1 1 Weight 83.9 kg - Imaging and Cardiology Imaging: Impressions Chest X-Ray 02/17/18 00:00 CONCLUSION: No acute cardiopulmonary disease identified. Assessment and Plan - Assessment (1) TIA (transient ischemic attack) Code(s): G45.9 - Transient cerebral ischemic attack, unspecified Status: Acute Plan: Neurologically stable. AZUL today unremarkable. No cardiac source of embolism, no intracardiac shunts. (2) CAD (coronary artery disease) Code(s): I25.10 - Atherosclerotic heart disease of [place] coronary artery without angina pectoris Status: Chronic Plan: Stable. No definite angina symptoms. History of obtuse marginal stenting 2017. Continue daily aspirin. (3) Hypertension Code(s): I10 - Essential (primary) hypertension Status: Chronic Plan: Stable. Normotensive on no antihypertensive medications. - Plan Code Status: full Discussed Condition With: patient (2) CAD (coronary artery disease) Qualifiers: Coronary Disease-Associated Artery/Lesion type: [place] artery [place] vs. transplanted heart: [place] heart Associated angina: without angina Qualified Code(s): I25.10 - Atherosclerotic heart disease of [place] coronary artery without angina pectoris (3) Hypertension Qualifiers: Hypertension type: essential hypertension Qualified Code(s): I10 - Essential (primary) hypertension
--- NOTE | 2018-02-19 13:03 | ECHRPT ---
Indication: CVA/TIA CONCLUSIONS Normal transesophageal echo. No cardiac source of embolism or intracardiac shunt is identified. BP: / HR: Rhythm: Technical Quality: Medications Complications Proc. Components FINDINGS LEFT VENTRICLE Normal left ventricular size and wall thickness. The left ventricular systolic function is normal wi th an estimated ejection fraction in the range of 60-65%. No regional wall motion abnormalities are prese nt. RIGHT VENTRICLE Normal right ventricular size and systolic function. LEFT ATRIUM The left atrial size is normal. RIGHT ATRIUM The right atrial size is normal. ATRIAL APPENDAGES Normal left atrial appendage size with no evidence of thrombus formation. ATRIAL SEPTUM Normal atrial septal thickness without atrial level shunting by limited color doppler interrogation. AORTA The aortic root and proximal ascending aorta are normal in size on limited imaging. MITRAL VALVE Structurally normal mitral valve. Trace mitral regurgitation. AORTIC VALVE Trileaflet aortic valve. No aortic valve stenosis or regurgitation. TRICUSPID VALVE Structurally normal tricuspid valve. No tricuspid valve stenosis or regurgitation. VESSELS The inferior vena cava is normal in size. PULMONARY VALVE The pulmonary valve is not well visualized. PERICADIUM No pericardial effusion. Devin Hoffman MD (Electronically Signed) Final Date:19 February 2018 13:01
--- NOTE | 2018-02-19 14:51 | P.DS ---
DS: Providers Date of admission: 02/14/18 22:55 Primary care physician: No Primary Care Physician Consults: 02/14/18 23:21 Consult to Neurology Routine Consulting Provider: Luis Antonio Rojas Reason for Consultation: Ischemic Stroke, Dr. Cuellar already saw patient Notified:: Service Spoke with:: Tarah Date Notified:: 02/14/18 Time Notified:: 23:40 Ordering Provider: ANTONIA Consult to Rehab Medicine Routine Consulting Provider: Alicia Barney Reason for Consultation: Stroke patient, assist with Rehab recommendations Notified:: Service Spoke with:: Tarah Date Notified:: 02/14/18 Time Notified:: 23:41 Ordering Provider: ANTONIA 02/16/18 11:57 Consult to Cardiology Routine Consulting Provider: Devin Hoffman Does the patient have a Foot Caster who follows them?: No Preferred Control Technician:: Digital Forensics Examiner Physician Reason for Consultation: AZUL Notified:: Office Spoke with:: María Date Notified:: 02/16/18 Time Notified:: 12:39 Ordering Provider: LYUDMILA Brief History from admission: HPI as documented by the admitting physician: 52-year-old male with a history of CAD status post stenting in December 2017, hypertension, and hyperlipidemia presented to the ED today as a stroke alert. Patient was brought in by EMS. Prior to coming in he states he was sitting at home drinking a glass of milk when he felt his left face go numb and have a left facial droop, he also felt numbness in his left upper extremity and became very dizzy. He did not have any other weakness in his right upper or bilateral lower extremities. No loss of conscious no headache, chest pain, shortness of breath or vomiting. He states he has been compliant with all his medications since being discharged. He stated he did have some similar symptoms yesterday with numbness to his face and arm but the had resolved over time. DS: Diagnosis Discharge Diagnosis (1) TIA (transient ischemic attack): Status: Acute (2) CAD (coronary artery disease): Status: Chronic (3) Hypertension: Status: Chronic DS: Summary 52-year-old male admitted with TIA with symptoms of left sided paresthesia. Patient did have some recurrence of symptoms. The patient was evaluated by neurology and was started on Eliquis in addition to aspirin. Further evaluation with a hypercoagulable workup is pending and the patient will follow- up outpatient with neurology. He underwent AZUL which was unremarkable. The patient remained normotensive without medications. He was followed by cardiology. History of previous stent and has been on Plavix. Per cardiology, okay to discontinue Plavix. The patient is discharged on aspirin, statin, and Eliquis. He did have some bronchitis with sinusitis and bronchospasm. He was given a couple doses of Rocephin and azithromycin. His symptoms completely resolved. The patient was extensively counseled to stop drinking alcohol and to stop using tobacco. Time Spent with Patient Total time spent providing and/or coordinating discharge services: Greater than 30 minutes Quality: Stroke Last date observed well: 02/14/18 Last time observed well: 21:00 Quality: VTE Deep Vein Thrombosis/Pulmonary Embolism Present on Admission: No Exam Narrative Exam Narrative: GENERAL: This is a well-nourished, well-developed patient, in no apparent distress. CARDIOVASCULAR: Normal rate and regular rhythm without murmurs, gallops, or rubs. RESPIRATORY: Good respiratory efforts. Breath sounds equal and clear to auscultation bilaterally. GASTROINTESTINAL: Abdomen soft, non-tender, non-distended. Normal active bowel sounds MUSCULOSKELETAL: Extremities without cyanosis, or edema. NEURO: Alert & Oriented x4 to person, place, time, situation. Moves all ext x4 PSYCH: Appropriate mood and affect. Results Labs on day of discharge: Labs from last 24 hours 02/16/18 05:34 Thrombin Time ND Lupus Anticoagulant LA PTT Screen 34 dRVVT Screen 34 LA dRVVT Confirm ND dRVVT Mix ND Hexagonal Phase Confirm ND Impressions ITS Impressions Head CT 02/14/18 21:32 CONCLUSION: 1. Lacunar infarct right caudate head likely old. 2. No acute intracranial abnormality. 3. Complete opacification left maxillary sinus. Report was called by [ [facility] to [facility] at 9:45pm CT CAD 02/14/18 21:49 CONCLUSION: Physiological brain perfusion parameters with RAPID analysis as above. The decision for consideration of therapy is multi factorial and multi disciplinary relying on subjective and objective clinical data. This data is not construed or intended to be the sole determinant of treatment eligibility. Head CTA 02/14/18 21:49 CONCLUSION: 1. No large vessel stenosis, aneurysm or thrombosis. Neck CTA 02/14/18 21:49 CONCLUSION: 1. No significant carotid stenosis. Chest X-Ray 02/17/18 00:00 CONCLUSION: No acute cardiopulmonary disease identified. Head MRI 02/17/18 00:00 CONCLUSION: Chronic small vessel ischemic and atrophic changes. Discharge Plan Discharge Disposition Patient Disposition: Discharge Home Discharge Condition Condition: Stable Discharge Order Discharge Orders: Discharge Order (Routine); Ordered 02/19/18 Ordered By: Andreas Joe Discharge Details Anticipated Discharge Date: 02/14/18 Physicians Team Primary Care Provider: Primary Marjorie Astorga Attending Provider: Andreas Joe Other Providers: Luis Antonio Rojas ; Alicia Barney ; Devin Hoffman Rxs /Orders / Referrals /Forms Prescriptions: New apixaban [Eliquis] 5 mg Tablet 5 mg PO BID 30 Days Qty: 60 RF: 0 aspirin [Aspir-81] 81 mg tablet,delayed release (DR/EC) 81 mg PO DAILY Qty: 30 RF: 0 Continue atorvastatin 20 mg Tablet 20 mg PO DAILY Qty: 30 RF: 11 Discontinued clopidogrel [Plavix] 75 mg Tablet 75 mg PO DAILY Qty: 30 RF: 11 carvedilol [Coreg] 3.125 mg Tablet 3.125 mg PO BID 30 Days Qty: 60 RF: 11 ramipril 2.5 mg Capsule 2.5 mg PO DAILY 30 Days Qty: 30 RF: 11 aspirin [Aspirin Low Dose] 81 mg Tablet,Delayed Release (Dr/Ec) 81 mg PO DAILY Qty: 90 RF: 3 Referrals: Primary Care Marjorie Otero [Primary Care Provider] - See Instructions Discharge Instructions Additional Instructions: Your Health Problems: Goals to Promote Your Health: * To prevent worsening of your condition * To maintain your health at the optimal level Directions to Meet Your Goals: * Take your medications as prescribed * Follow your dietary instruction * Follow activity as directed * Keep your appointments as scheduled * Take your immunizations and boosters as scheduled * If your symptoms worsen call your PCP * If no PCP go to Urgent Care or Emergency Room Smoking is dangerous to your health. Avoid second hand smoke. You may reach the 24-hour crisis hotline for domestic abuse at . Status ED Status: Left Department
--- NOTE | 2018-02-19 21:16 | ECG ---
Date Performed: 02/18/2018 Time Performed: 17:30:24 PTAGE: 52 years EKG: Sinus rhythm WITH OCCASIONAL VENTRICULAR PREMATURE COMPLEXES INCOMPLETE RIGHT BUNDLE BRANCH BLOCK BORDERLINE ECG PREVIOUS TRACING : 02/14/2018 21.32 Since the previous tracing, no significant change noted DOCTOR: Moose Hugo Interpretating Date/Time 02/19/2018 21:14:56
--- NOTE | 2018-02-19 21:32 | HM ---
Date Performed: 02/15/2018 Time Performed: 19:04:00 HOOKUP DATE: 02/15/18 07:04:00 PM Luly ANALYSIS START TIME: 02/15/2018 7:09:00 PM ANALYSIS END TIME: 02/16/2018 7:13:00 PM PATIENT AGE: 52 PATIENT HEIGHT: 69 PATIENT WEIGHT DRUG LIST: ROOM 1510 PATIENT DIAGNOSIS: TIA TEST NARRATIVE: The patient's average heart rate was 78 BPM. Heart rates greater than 120 B PM were noted < 1% of the time. No episodes of bradycardia were noted. No pauses exceeding 2.0 s econds were noted. 1214 ventricular ectopics, which represented 1% of the total beat count, were noted. The highest ventricular ectopic frequency occurred from 08:00 AM to 09:00 AM Fri. During thi s time 80 VE(s) occurred. Ventricular ectopics were observed as 1212 isolated beat(s) and as 1 coupl et(s). No runs were noted. Some of the ventricular beats occurred in bigeminal cycles. 18 supra ventricular ectopics, which represented < 1% of the total beat count, were noted. The highest suprav entricular ectopic frequency occurred from 11:00 AM to 12:00 PM Fri. During this time 8 SVE(s) occur red. No episodes of ST depression (defined as -1.0 mm or more) were noted in channel 1. No episo marta of ST depression (defined as -1.0 mm or more) were noted in channel 2. No episodes of ST depress ion (defined as -1.0 mm or more) were noted in channel 3. NO DIARY WAS GIVEN TO PATIENT TEST INTERPRETATION: 1. Predominant underlying rhythm is sinus 2. Occasional PVCs were noted 3. NO pauses greater than 2.0 sec noted 4. Several episodes of SVT were noted with longest run of 5 beat s and fastest run of 150 BPM Macie d by : Moose Hugo
[2018-02-20 13:23] LABS: Factor V Leiden Mutation Negative (Negative)
[2018-02-22 13:19] LABS: Protein C Antigen 119 % (70-150)
== END 2018-02-19 16:18 | disposition home or self-care (01) | DRG 69 ==
LOC: NEPE 21:26 → NEDA 22:55 → NEDH 02-15 04:43 → N03 02-15 06:20 → N05 02-16 18:02
PROVIDERS: ADMIT Family Medicine; ATTEND Family Medicine
DX: Z95.5 Presence of coronary angioplasty implant and graft; G45.9 Transient cerebral ischemic attack, unspecified; J44.1 Chronic obstructive pulmonary disease with (acute) exacerbation; E78.5 Hyperlipidemia, unspecified; R20.0 Anesthesia of skin; I10 Essential (primary) hypertension; Z79.82 Long term (current) use of aspirin; R20.2 Paresthesia of skin; Z86.73 Personal history of transient ischemic attack (TIA), and cerebral infarction without residual deficits; I25.10 Atherosclerotic heart disease of native coronary artery without angina pectoris; Z79.02 Long term (current) use of antithrombotics/antiplatelets; J06.9 Acute upper respiratory infection, unspecified; F17.210 Nicotine dependence, cigarettes, uncomplicated
CPT/HCPCS: 0042T; 70450; 70496; 70498; 70553; 71010; 71020; 71045; 71046; 76497; 76499; 80048; 80061; 81001; 81240; 81241; 82550; 82552; 82948; 82962; 83036; 84484; 85025; 85302; 85306; 85610; 85613; 85670; 85730; 86147; 86592; 90772; 90782; 92610; 93005; 93225; 93320; 93325; 94150; 96125; 96372; 97110; 97116; 97162; 97166; 97535; 99285; A9585; C8925; G0195; J0456; J0696; J1650; J7040; J7050; J7506; J7512; Q9967